=== PATIENT | male | born 1970 | race Caucasian/White ===

== ENCOUNTER 2017-07-04 00:09 | Emergency (ER) | payer OTHER ==
[~2017-07-04] VITALS: Ht 172.7 cm; Wt 63.6 kg
[2017-07-04 00:23] VITALS: Ht 172.7 cm; Wt 63.6 kg
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
[2017-07-04] MEDS ORDERED: IBUP-1542 PO (02:22)
--- NOTE | 2017-07-04 02:25 | RADRPT ---
PROCEDURE: US Scrotum. CLINICAL INDICATION: rt testicular pain TECHNIQUE: Multiple sonographic images of the scrotal region were obtained utilizing a linear arra y transducer with grayscale and color-flow and a Doppler imaging. The images were reviewed on a high -resolution PACS workstation. COMPARISON: No prior studies are available for comparison. FINDINGS: The right testicle is well visualized and has a normal echotexture. No focal areas of abnormal echog enicity are visualized. The right testicle measures measures 4.0 x 2.1 x 3.4 cm.. There is normal co chao-flow. The right epididymis is visualized and measures 1.2 x 0.9 x 0.5 cm There is normal color-f low. The left testicle is well visualized and has a normal echotexture. No focal areas abnormal echogenic ity are visualized. The left testicle measures measures 4.0 x 2.2 x 3.1 cm . There is normal color-f low. The left epididymis is visualized and measures 1.1 x 1.0 x 0.7 cm. There is normal color-flow. No significant hydrocele or varicocele is identified. The scrotal wall is unremarkable. No swelling or edema is seen. IMPRESSION: No evidence of testicular torsion. Physician Jacklyn Date Time Electronically viewed and signed by Physician Jacklyn on 07/04/2017 02:25 CS/
[2017-07-04] MEDS ORDERED: traMADol 50 MG TAB PO ONE (02:30)
[2017-07-04 02:32] LABS: URINE BLOOD (Dip) POC Trace-intact (NEGATIVE)
[2017-07-04 02:59] VITALS: BP 119/72; PULSE 61; RESP 18; TEMP 97.6
== END 2017-07-04 02:41 | disposition home or self-care (01) ==
LOC: E/R 00:09
DX: N50.811 Right testicular pain (principal)
CPT/HCPCS: 76870; 81003; Z7502; Z7610

== ENCOUNTER 2017-07-22 23:06 | Emergency (ER) | payer OTHER ==
[~2017-07-22] VITALS: Ht 167.6 cm; Wt 61.4 kg
[~2017-07-22 23:06] MED LIST: IBUP-1542 PO
[2017-07-22 23:10] VITALS: Ht 167.6 cm; Wt 61.4 kg
--- NOTE | 2017-07-23 01:55 | ERD ---
ER Documentation Chief Complaint Chief Complaint testicular pain x 1 month, blood in urine HPI 47-year-old male presents here to emergency department for complaints of blood in the urine, and right testicular pain, patient was seen here 1 month ago, had the same symptoms, was saying that the pain is much more worse. Patient describes the pain as throbbing pain, 6/10 scale, not better or worse with anything. Patient denies any fever or chills. Patient denies any penile discharge. ROS All systems reviewed and are negative except as per history of present illness. Medications Home Meds Active Scripts Ibuprofen* (Motrin*) 600 Mg Tab, 600 MG PO Q6, #30 TAB Prov:BONITA JAIMES MD 07/04/17 Allergies Allergies: Coded Allergies: No Known Allergy (Unverified , 07/04/17) PMhx/Soc History of Surgery: No Anesthesia Reaction: No Hx 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 Disorder: No Hx Respiratory Disorders: No Hx Cardiac Disorders: No Hx Psychiatric Problems: No Hx Miscellaneous Medical Probl: Yes (Paraplegic ) Hx Alcohol Use: Yes Hx Substance Use: Yes (Marijuana) Hx Tobacco Use: Yes Smoking Status: Current every day smoker FmHx Family History: No coronary disease, No diabetes, No other Physical Exam Vitals Vital Signs Date Time Temp Pulse Resp B/P Pulse Ox O2 Delivery O2 Flow Rate FiO2 07/22/17 23:10 98.3 100 20 110/56 100 Physical Exam GENERAL: The patient is well developed and appropriate for usual state of health, in no apparent distress. CHEST: Clear to auscultation bilaterally. There are no rales, wheezes or rhonchi. HEART: Regular rate and rhythm. No murmurs, clicks, rubs or gallops. No S3 or S4. ABDOMEN: Soft, nontender and nondistended. Good bowel sounds. No rebound or guarding. No gross peritonitis. No gross organomegaly or masses. No Palacios sign or McBurney point tenderness. BACK: No midline or flank tenderness. EXTREMITIES: Equal pulses bilaterally. There is no peripheral clubbing, cyanosis or edema. No focal swelling or erythema. Full range of motion. Grossly neurovascularly intact. NEURO: Alert and oriented. Cranial nerves 2-12 intact. Motor strength in all 4 extremities with 5/5 strength. Sensation grossly intact. Normal speech and gait. SKIN: There is no apparent rash or petechia. The skin is warm and dry. HEMATOLOGIC AND LYMPHATIC: There is no evidence of excessive bruising or lymphedema. No gross cervical, axillary, or inguinal lymphadenopathy. : Noted right scrotal tenderness mild redness noted, no swelling noted. No penile discharge, no lesions noted. Results 24 hrs Laboratory Tests Test 07/23/17 02:30 Urine Color MISHA Urine Clarity CLOUDY Urine pH 5.0 Urine Specific [place] 1.027 Urine Ketones NEGATIVEmg/dL Urine Nitrite NEGATIVEmg/dL Urine Bilirubin NEGATIVEmg/dL Urine Urobilinogen NEGATIVEmg/dL Urine Leukocyte Esterase NEGATIVELeu/ul Urine Microscopic RBC 0/HPF Urine Microscopic WBC 0/HPF Urine Mucus MODERATE/HPF Urine Hemoglobin NEGATIVEmg/dL Urine Glucose NEGATIVEmg/dL Urine Total Protein 1+mg/dl PROCEDURE: US Scrotum. CLINICAL INDICATION: Right scrotal pain TECHNIQUE: Multiple sonographic images of the scrotal region were obtained utilizing a linear array transducer with grayscale and color-flow Doppler imaging. The images were reviewed on a high-resolution PACS workstation. COMPARISON: US PELVIS 07/04/2017 FINDINGS: The right testicle is well visualized and has a normal echotexture. No focal areas of abnormal echogenicity are visualized. The right testicle measures 3.9 x 1.4 x 3 cm. There is normal color-flow and arterial flow. The right epididymis is visualized and unremarkable in appearance. There is normal color- flow. The left testicle is well visualized and has a normal echotexture. No focal areas of abnormal echogenicity are visualized. The left testicle measures 4.2 x 1.8 x 3.3 cm. There is normal color-flow and arterial flow. The left epididymis is visualized and there is a 7 mm epididymal cyst in the left epididymal head. There is normal color-flow. There are mildly prominent veins in the scrotum bilaterally. However, no definite varicocele (greater than 2 veins with diameter of 2 mm or greater) is seen bilaterally. IMPRESSION: 7 mm epididymal cyst. Otherwise, no definite abnormality seen. No evidence of testicular torsion. RPTAT: HJES .Elia Gallagher MD, MD Date Time Electronically viewed and signed by .Elia Gallagher MD, MD on 07/23/2017 02:31 .S/ Procedures/MDM Medical decision making: Patient has epididymal cyst, no blood in the urine, no symptoms of any torsion, no epididymitis noted. Patient was advised to see urology specialist for further evaluation and management. Patient was given tramadol for severe pain, is advised to follow-up with urology specialist, return to emergency department for any worsening symptoms. Disposition: Home. Stable Departure Diagnosis: Primary Impression: Epididymal cyst Condition: Stable Patient Instructions: Testicular Self-Exam (NEETA) JOO FELICIANO NP Jul 23, 2017 01:55
--- NOTE | 2017-07-23 02:31 | RADRPT ---
PROCEDURE: US Scrotum. CLINICAL INDICATION: Right scrotal pain TECHNIQUE: Multiple sonographic images of the scrotal region were obtained utilizing a linear arra y transducer with grayscale and color-flow Doppler imaging. The images were reviewed on a high-resol [employer] PACS workstation. COMPARISON: US PELVIS 07/04/2017 FINDINGS: The right testicle is well visualized and has a normal echotexture. No focal areas of abnormal echog enicity are visualized. The right testicle measures 3.9 x 1.4 x 3 cm. There is normal color-flow an d arterial flow. The right epididymis is visualized and unremarkable in appearance. There is normal color-flow. The left testicle is well visualized and has a normal echotexture. No focal areas of abnormal echoge nicity are visualized. The left testicle measures 4.2 x 1.8 x 3.3 cm. There is normal color-flow and arterial flow. The left epididymis is visualized and there is a 7 mm epididymal cyst in the left ep ididymal head. There is normal color-flow. There are mildly prominent veins in the scrotum bilaterally. However, no definite varicocele (greate r than 2 veins with diameter of 2 mm or greater) is seen bilaterally. IMPRESSION: 7 mm epididymal cyst. Otherwise, no definite abnormality seen. No evidence of testicular torsion. RPTAT: HJES .Elia Gallagher MD, MD Date Time Electronically viewed and signed by .Elia Gallagher MD, MD on 07/23/2017 02:31 .S/
[2017-07-23 03:33] LABS: ADD UMIC YES; UR ASCORBIC ACID 40 mg/dL (NEGATIVE); UR BILIRUBIN (Dip) NEGATIVE (NEGATIVE); UR BLOOD (Dip) NEGATIVE (NEGATIVE); UR CLARITY CLOUDY (CLEAR); UR COLOR AMBER (YELLOW); UR GLUCOSE (Dip) NEGATIVE (NEGATIVE); UR KETONES (Dip) NEGATIVE (NEGATIVE); UR LEUKOCYTE ESTERASE (Dip) NEGATIVE Leu/ul (NEGATIVE); UR MUCUS MODERATE /HPF (NONE SEEN); UR NITRITE (Dip) NEGATIVE (NEGATIVE); UR RBC 0 /HPF (0-5); UR SPECIFIC GRAVITY (Dip) 1.027 (1.003-1.030); UR TOTAL PROTEIN (Dip) 1+ mg/dl (NEGATIVE); UR UROBILINOGEN (Dip) NEGATIVE (NEGATIVE)
[2017-07-23] MEDS ORDERED: TRAM50TA2 PO (03:44)
== END 2017-07-23 04:03 | disposition home or self-care (01) ==
LOC: FTE 23:06
DX: N50.3 Cyst of epididymis (principal); F17.210 Nicotine dependence, cigarettes, uncomplicated
CPT/HCPCS: 76870; 81001; Z7502

== ENCOUNTER 2017-09-23 10:45 | Emergency (ER) | END 2017-09-23 13:45 | disposition home or self-care (01) ==

== ENCOUNTER 2017-11-10 14:38 | Emergency (ER) | END 2017-11-10 21:32 | disposition home or self-care (01) ==

== ENCOUNTER 2018-01-21 02:19 | Emergency (ER) | END 2018-01-21 05:55 | disposition home or self-care (01) ==

== ENCOUNTER 2018-01-21 21:59 | Emergency (ER) | END 2018-01-22 01:03 | disposition home or self-care (01) ==

== ENCOUNTER 2018-03-07 05:51 | Emergency (ER) | END 2018-03-07 10:15 | disposition home or self-care (01) ==

== ENCOUNTER 2018-03-08 23:13 | Emergency (ER) | END 2018-03-09 02:15 | disposition left against medical advice (07) ==

== ENCOUNTER 2018-03-10 06:02 | Emergency (ER) | END 2018-03-10 10:14 | disposition left against medical advice (07) ==

== ENCOUNTER 2018-03-21 13:33 | Emergency (ER) | END 2018-03-21 14:54 | disposition home or self-care (01) ==

== ENCOUNTER 2019-02-08 20:51 | Emergency (ER) | payer OTHER ==
[~2019-02-08] VITALS: Ht 165.1 cm; Wt 65.0 kg
[~2019-02-08 20:51] MED LIST changes: +BACL20TA PO; +GABA300C16 PO; -IBUP-1542 PO; +TAMS0.4C2 PO
[2019-02-08 20:55] VITALS: Ht 165.1 cm; Wt 65.0 kg
[2019-02-08] MEDS ORDERED: morphine 4 MG/ML VIAL IV STA (22:09)
[2019-02-08] MEDS ORDERED: BACLOFEN 10 MG TAB PO ONE (22:30)
[2019-02-08] MEDS ORDERED: CEFTRIAXONE 1 GM/50 ML (PMX) 50 ML IVPB ONE (22:30)
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
[2019-02-08] MEDS ORDERED: CEPH-443 PO (22:49)
[2019-02-09] MEDS ORDERED: HYDR-3980 PO (11:21)
[2019-02-09] MEDS ORDERED: BACL20TA PO (11:21)
[2019-02-09] MEDS ORDERED: morphine 4 MG/ML VIAL IV STA ×2 (11:39→17:02)
[2019-02-09] MEDS ORDERED: morphine 4 MG/ML VIAL ONE (11:41)
[2019-02-09] MEDS ORDERED: BACLOFEN 10 MG TAB PO ONE ×2 (12:00→17:30)
[2019-02-09 17:00] VITALS: BP 118/69; PULSE 62; RESP 16
== END 2019-02-09 18:29 | disposition home or self-care (01) ==
LOC: E/R 20:51
DX: S81.801A Unspecified open wound, right lower leg, initial encounter (principal); L03.115 Cellulitis of right lower limb; F17.210 Nicotine dependence, cigarettes, uncomplicated; X58.XXXA Exposure to other specified factors, initial encounter; Y92.9 Unspecified place or not applicable; Z74.1 Need for assistance with personal care; Z86.69 Personal history of other diseases of the nervous system and sense organs
CPT/HCPCS: 36415; 71045; 80048; 84484; 85025; 93005; 96365; 96375; 96376; J0696; J2270; Z7502; Z7610

== ENCOUNTER 2019-02-10 20:26 | Inpatient (IN) | payer OTHER ==
[~2019-02-10] VITALS: Ht 172.7 cm; Wt 65.0 kg
[~2019-02-10 20:26] MED LIST changes: +ALPR0.254 PO; +BACL10TA PO; +BISA5TAB6 PO; +CEPH-443 PO; +CIPR500T4 PO; -GABA300C16 PO; +GABA400C14 PO; +HYDR-3601 PO; +HYDR-3980 PO; +LEVO100T8 PO; +MORP30TA3 PO; +NORT25CA PO; +PANT40TA4 PO; +SULF-182 PO; -TAMS0.4C2 PO
[2019-02-10 20:36] VITALS: Ht 172.7 cm; Wt 65.0 kg
[2019-02-10] MEDS ORDERED: SOD CHLORIDE 0.9% 1,000 ML IV STA (21:15)
[2019-02-10] MEDS ORDERED: HYDROmorphONE 1 MG/ML SYG IV STA (21:15)
[2019-02-10] MEDS ORDERED: ONDANSETRON 4 MG INJ IV STA (21:15)
[2019-02-10] MEDS ORDERED: ACETAMINOPHEN 325 MG TAB PO PRN (23:00)
[2019-02-10] MEDS ORDERED: ONDANSETRON 4 MG INJ IV PRN (23:00)
[2019-02-10] MEDS ORDERED: VANCOMYCIN IV PER PHARMACY XX SCH (23:00)
[2019-02-10] MEDS ORDERED: VANCOMYCIN 1 GM (PMX) 250 ML IVPB STA (23:28)
[2019-02-10] MEDS ORDERED: PIPER-TAZO 3.375 GM IV (PMX) 100 ML IVPB STA (23:28)
[2019-02-10] MEDS ORDERED: HYDROCODONE/APAP (10/325) TAB PO PRN (23:30)
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
[2019-02-11] MEDS: BACLOFEN 10 MG TAB PO SCH ×3 (00:17→20:55)
[2019-02-11] MEDS: morphine (ER) 30 MG TAB PO SCH ×3 (00:17→20:56)
[2019-02-11 01:13] VITALS: BP 111/56; PULSE 83; RESP 16
[2019-02-11] MEDS: SOD CHLORIDE 0.9% 1,000 ML IV SCH ×2 (02:24→13:22)
[2019-02-11] MEDS: HYDROCODONE/APAP (10/325) TAB PO PRN ×2 (02:31→19:59)
[2019-02-11] MEDS ORDERED: morphine 2 MG INJ IV PRN (04:00)
[2019-02-11] MEDS ORDERED: PENDING SANTYL ORDER FOR WOUND CARE XX PRN (05:00)
[2019-02-11 07:30] VITALS: BP 91/46; PULSE 57; RESP 16
[2019-02-11] MEDS: ENOXAPARIN 40 MG/0.4 ML SYG SC SCH (09:30)
[2019-02-11] MEDS: GABAPENTIN 300 MG CAP PO SCH ×2 (09:30→20:53)
--- NOTE | 2019-02-11 12:53 | PN ---
Date/Time of Note Date/Time of Note DATE: 02/11/19 TIME: 12:41 Assessment/Plan VTE Prophylaxis Risk score (from Nsg)>0 risk: 4 SCD applied (from Nsg): Yes Pharmacological prophylaxis: LMWH Lines/Catheters IV Catheter Type (from Nrsg): Peripheral IV Assessment/Plan Assessment/Plan 49 yo paraplegic man presents with R leg cellulitis # right lower extremity cellulitis: - Arising from lateral leg ulcer. - On my exam cellulitis has completely resolved. - Continue vanco and zosyn for now, transition to PO bactrim or clinda. - Wound care #Heart murmur - Apparently this was present months ago when he was hospitalized at [facility]. - Will get echo here. #Elevated lipase - Tolerating regular diet - No more epigastric pain. - I do not suspect pancreatitis. #Paraplegia - Complicated by neuropathic pain and muscle spasm - Cont home meds (verbal, per patient:) - MS Contin 30 mg BID - Baclofen 40mg BID - gabapentin 600mg BID - Also daily PT - CM for placement. #4 history of illicit drug use: - Currently EtOH, drug screen negative # DVT GI prophylaxis: Lovenox, no GI prophylaxis indicated Further treatment strategy will be implemented as per the clinical course. Result Diagram: 02/11/19 0702/11/19 07 Subjective 24 Hr Interval Summary Free Text/Dictation No acute overnight events. Patient complains of spasm-like muscle pain. Exam/Review of Systems Exam Vitals Vital Signs Date Temp Pulse Resp B/P (MAP) Pulse Ox O2 O2 Flow FiO2 Time Delivery Rate 02/11/19 98.2 57 16 91/46 (61) 94 07:30 02/11/19 Room Air 00:18 Intake and Output 02/10/19 02/10/19 02/11/19 1515:00 23:00 07:00 IntakeIntake Total 730 ml OutputOutput Total 300 ml BalanceBalance 430 ml Exam General: Patient is currently lying in bed he appears to be in some discomfort from pain in his right leg HEENT: Atraumatic, normocephalic. The pupils are equal, round and reactive. Extraocular motor are intact Neck: Supple with full range of motion. No rigidity or meningismus Chest: Nontender Lungs: Clear to auscultation bilaterally no crackles rales or wheezing Heart: Regular rate and rhythm. 3/6 holosystolic ejection murmur. Abdomen: Soft , nontender, nondistended , bowel sounds are present. No guarding no rebound tenderness , No masses or organomegaly. : Inferior scrotal superficial ulcer. Testicles firm and hard and nontender. Actually I could only palpate one testicle. Extremities: Right lateral leg ulcer, clean based, no surrounding erythema or induration. Results Results 24hrs Laboratory Tests Test 02/10/19 21:22 02/10/19 21:25 02/11/19 07:02 White Blood Count 8.2 7.1 Red Blood Count 4.03 L 3.89 L Hemoglobin 12.5 L 11.9 L Hematocrit 36.6 L 36.0 L Mean Corpuscular Volume 90.8 92.5 Mean Corpuscular Hemoglobin 31.0 30.6 Mean Corpuscular Hemoglobin Concent 34.2 33.1 Red Cell Distribution Width 12.7 13.0 Platelet Count 311 304 Mean Platelet Volume 8.1 8.5 Immature Granulocytes % 0.700 H 0.700 H Neutrophils % 54.3 45.9 Lymphocytes % 31.8 35.8 Monocytes % 10.4 12.4 H Eosinophils % 2.4 4.6 Basophils % 0.4 0.6 Nucleated Red Blood Cells % 0.0 0.0 Immature Granulocytes # 0.060 H 0.050 H Neutrophils # 4.4 3.3 Lymphocytes # 2.6 2.6 Monocytes # 0.9 0.9 Eosinophils # 0.2 0.3 Basophils # 0.0 0.0 Nucleated Red Blood Cells # 0.0 0.0 Prothrombin Time 12.9 Prothrombin Time Ratio 1.0 INR International Normalized Ratio 0.96 Activated Partial Thromboplast Time 31.5 Sodium Level 139 142 Potassium Level 4.4 4.2 Chloride Level 105 111 H Carbon Dioxide Level 27 26 Anion Gap 7 5 Blood Urea Nitrogen 8 # 9 Creatinine 0.59 L 0.67 Est Glomerular Filtrat Rate mL/min > 60 > 60 Glucose Level 85 82 Calcium Level 9.0 8.1 L Total Bilirubin 0.3 0.2 Direct Bilirubin 0.00 0.00 Indirect Bilirubin 0.3 0.2 Aspartate Amino Transf (AST/SGOT) 61 H 67 H Alanine Aminotransferase (ALT/SGPT) 47 41 Alkaline Phosphatase 57 47 Troponin I < 0.012 Total Protein 7.3 6.2 # Albumin 3.8 3.0 L Globulin 3.50 H 3.20 Albumin/Globulin Ratio 1.08 0.93 Amylase Level 186 H Lipase 393 H 412 H Ethyl Alcohol Level < 10.0 H POC Venous Lactate 1.1 Hemoglobin A1c 5.0 Magnesium Level 2.1 Triglycerides Level 51 Cholesterol Level 123 LDL Cholesterol, Calculated 67 HDL Cholesterol 46 Cholesterol/HDL Ratio 2.6 Thyroid Stimulating Hormone (TSH) 73.500 H Medications Medication Current Medications IV Flush (NS 3 ml) 3 ml PER PROTOCOL IV ; Start 02/10/19 at 23:00 Ondansetron HCl (Zofran Inj) 4 mg Q6H PRN IV NAUSEA/VOMITING; Start 02/10/19 at 23:00 Acetaminophen (Tylenol Tab) 650 mg Q6H PRN PO .PAIN 1-3 OR TEMP; Start 02/10/19 at 23:00 Docusate Sodium (Colace) 100 mg Q12H PRN PO .CONSTIPATION; Start 02/10/19 at 23:00 Bisacodyl (Dulcolax) 5 mg DAILY PRN PO .CONSTIPATION; Start 02/10/19 at 23:00 Enoxaparin Sodium (Lovenox) 40 mg DAILY SC Last administered on 02/11/19at 09:30; Admin Dose 40 MG; Start 02/11/19 at 09:00 Vancomycin HCl (Vanco Iv Per Pharmacy) VANCOMYCIN PER PHARMACY PER PROTOCOL XX ; Start 02/10/19 at 23:00 Baclofen (Lioresal) 20 mg BID PO Last administered on 02/11/19at 09:30; Admin Dose 20 MG; Start 02/10/19 at 23:30 Morphine Sulfate (Ms Contin (Er)) 30 mg BID PO Last administered on 02/11/19at 09:29; Admin Dose 30 MG; Start 02/10/19 at 23:30 Gabapentin (Neurontin) 600 mg BID PO Last administered on 02/11/19at 09:30; Admin Dose 600 MG; Start 02/11/19 at 09:00 Acetaminophen/ Hydrocodone Bitart ([place] ()) 1 tab Q6H PRN PO PAIN LEVEL 1-3 Last administered on 02/11/19at 02:31; Admin Dose 1 TAB; Start 02/11/19 at 02:24 Vancomycin HCl 250 ml @ 125 mls/hr Q12H IVPB ; Start 02/11/19 at 12:30 Morphine Sulfate (morphine) 2 mg Q4H PRN IV SEVERE PAIN LEVEL 7-10 Last administered on 02/11/19at 06:11; Admin Dose 2 MG; Start 02/11/19 at 04:00 Miscellaneous Information (*Rx Drug Level Order Reminder*) VANCO TR LEVEL ON @ 130 ONCE ONCE XX ; Start 02/12/19 at 11:30; Stop 02/12/19 at 11:31 Miscellaneous Information (Pending Santyl Order For Wound Care) This patient oliveros... PRN PRN XX WOUND CARE; Start 02/11/19 at 05:00 JULIA RIVERA MD Feb 11, 2019 12:53
[2019-02-11] MEDS: morphine 2 MG INJ IV PRN ×3 (13:21→22:55)
[2019-02-11] MEDS: VANCOMYCIN 1 GM 250 ML IVPB SCH (13:21)
[2019-02-11] MEDS: BALSAM PERU/CASTOR OIL 60 GM TUBE TOP SCH ×2 (13:22→21:00)
[2019-02-11 14:30] VITALS: BP 123/56; PULSE 64; RESP 16
[2019-02-11 19:40] VITALS: BP 93/45; PULSE 65; RESP 16
[2019-02-11 20:30] VITALS: BP 95/55
--- NOTE | 2019-02-11 20:41 | RADRPT ---
Echocardiogram Report Patient Name: GRADY CROUCHPatient ID: [id number] : 1970 (49y 1m)Study Date: 02/11/2019 3:36:29 PM Gender: MAccession #: [id number] Tech: Fabian Soni [facility] Location: 2263-[address] Ref.Physician: JULIA RIVERA Height(Cm): BSA: Weight(Kg): Quality: AdequateOrder Physician: JULIA RIVERA Account #: Procedures: Echocardiographic Report: Transthoracic echocardiogram with complete 2D, M-Mode, and doppler examination. Indications: Murmur. Measurements: 2D/M Mode Doppler Measurement Value Normal Range Measurement Value Normal Range LVIDd 2D 5.5 [ 4.2 - 5.8 ] cm CARLEY VTI 1.2 [ 2.0 - 4.0 ] cm2 LVIDs 2D 3.5 [ 2.5 - 4.0 ] cm AV Mean Lino 2.7 [ 70.0 - 90.0 ] cm/sec LVPWd 2D 1.0 [ 0.6 - 1.0 ] cm AV Mean PG 34.0 [ 2.0 - 4.0 ] mmHg IVSd 2D 1.0 [ 0.6 - 1.0 ] cm AV VTI 95.1 cm AoR Diam 2D 3.1 [ 2.6 - 3.4 ] cm LVOT Mean Lino 1.0 [ 60.0 - 80.0 ] cm/sec EDV 2D 148.0 [ 62.0 - 150.0 ] ml LVOT Mean PG 5.0 [ 1.0 - 3.0 ] mmHg ESV 2D 52.6 [ 21.0 - 61.0 ] ml LVOT Peak Lino 1.5 [ 70.0 - 110.0 ] cm/sec EF 2D 64.5 [ 52.0 - 72.0 ] percent LVOT Peak PG 8.0 [ 2.0 - 6.0 ] mmHg LA Dimen 2D 2.9 [ 3.0 - 4.0 ] cm LVOT VTI 36.5 [ 20.0 - 30.0 ] cm LVOT Diam 2.0 [ 2.3 - 2.9 ] cm MV E Peak Lino 0.9 [ 60.0 - 130.0 ] cm/sec MV A Peak Lino 0.4 [ 100.0 - 120.0 ] cm/sec MV E/A 2.0 [ 0.8 - 1.5 ] ratio MV Decel Time 218 [ 104 - 258 ] msec Lat E` Lino 0.1 [ 10.0 - 15.0 ] cm/sec Lateral E/E` 7.4 [ 1.0 - 2.0 ] ratio Med E` Lino 0.1 cm/sec MV E/A 2.0 [ 0.8 - 1.5 ] ratio TR Peak Lino 2.3 [ 100.0 - 280.0 ] cm/sec TR Peak PG 21.0 mmHg RVSP 24.0 [ 10.0 - 36.0 ] mmHg Findings: Left Ventricle: Normal left ventricular systolic function. Normal left ventricular cavity size. Normal left ventricular wall thickness. Ejection fraction is visually estimated at 65 %. Tissue Doppler/Mitral Doppler indices are consistent with impaired relaxation (Stage I diastolic dysfunction). Right Ventricle: Normal right ventricular size. Normal right ventricular systolic function. Left Atrium: The left atrium is normal in size. Right Atrium: The right atrium is normal in size. Mitral Valve: Mild mitral leaflet calcification. Mild mitral annular calcification. Trace mitral regurgitation. Aortic Valve: Moderate aortic stenosis. Aortic valve Max velocity 3.95 m/sec. Max PG 62.30 mmHg. Mean PG 34.00 mmHg. Aortic valve area 1.21 cm2. Moderate aortic sclerosis. Possible bicuspid aortic valve. Severe aortic valve regurgitation. Tricuspid Valve: Normal appearance of the tricuspid valve. The estimated Peak RVSP is 24 mmHg. There is trace tricuspid regurgitation. Pulmonic Valve: Pulmonic valve not well visualized. Pericardium: Normal pericardium with no significant pericardial effusion. Aorta: Normal aortic root. IVC: Normal size and normal respiratory collapse consistent with normal right atrial pressure. Conclusions: Normal left ventricular systolic function. Grade 1 diastolic dysfunction. Probable bicuspid aortic valve with moderate stenosis and severe regurgitation. Trace mitral regurgitation. Trace tricuspid regurgitation and normal pulmonary pressures. Normal aortic root size. Electronically Signed By: Ashly Plata 2019-02-11 20:40:51 PDT
[2019-02-11] MEDS ORDERED: morphine (ER) 30 MG TAB PO SCH (21:00)
[2019-02-12] MEDS: VANCOMYCIN 1 GM 250 ML IVPB SCH ×2 (00:59→13:57)
[2019-02-12 02:04] VITALS: BP 90/47; PULSE 66; RESP 16
[2019-02-12 02:30] VITALS: BP 95/57
[2019-02-12] MEDS: morphine 2 MG INJ IV PRN ×5 (04:29→22:54)
[2019-02-12 08:00] VITALS: BP 109/53; PULSE 75; RESP 16
[2019-02-12] MEDS: BACLOFEN 10 MG TAB PO SCH ×2 (08:45→21:49)
[2019-02-12] MEDS: morphine (ER) 30 MG TAB PO SCH ×2 (08:45→21:49)
[2019-02-12] MEDS: GABAPENTIN 300 MG CAP PO SCH ×2 (08:46→21:48)
[2019-02-12] MEDS: ENOXAPARIN 40 MG/0.4 ML SYG SC SCH (08:54)
[2019-02-12] MEDS: BALSAM PERU/CASTOR OIL 60 GM TUBE TOP SCH ×2 (08:54→21:50)
--- NOTE | 2019-02-12 11:36 | PSY ---
Date/Time of Note Date/Time of Note DATE: 02/12/19 TIME: 11:25 Psychiatric Subjective Eval Consent Pt consented to telemedicine: No Subjective Evaluation Patient location: inpatient Chief Complaint: [id number],from SNF,c/o AP,NV,L chest radiating to L side pain,nausea,constipa History of present illness Patient is a 49-year-old paraplegia, admitted with complaints of right lower extremity swelling and pain. Patient is wheelchair-bound, alert and oriented. Patient denies psych history, states nothing is adler with him. Patient claims the only reason his previous facility wrote an extensive note showing he had psych history is to cover up their tracks in order not to lose a lawsuit. Patient declined psych medication and and contracted for safety. He states he is here for medical reasons. Past psychiatric history Per records but patient declined Hospitalization: other Medical history Problems Medical Problems: (1) Agitation Status: Acute (2) Bilateral leg pain Status: Acute (3) Cellulitis Status: Acute (4) Cellulitis of right lower extremity Status: Acute (5) Constipation Status: Acute (6) Delusions of parasitosis Status: Acute (7) Epididymal cyst Status: Acute (8) Hematuria Status: Acute (9) History of paraplegia Status: Acute (10) Malingering Status: Acute (11) Multiple complaints Status: Acute (12) Multiple complaints Status: Acute (13) Multiple complaints Status: Acute (14) Pain in testicle Status: Acute (15) Pain of left leg Status: Acute (16) Polysubstance abuse Status: Acute (17) Requires supervision due to deficit in self-care Status: Acute (18) Right hip pain Status: Acute (19) Right testicular pain Status: Acute (20) Scrotal pain Status: Acute (21) Testicle pain Status: Acute (22) Testicle pain Status: Acute (23) Wound of right lower extremity Status: Acute Allergies: Coded Allergies: ketorolac (Verified Allergy, Unknown, SWELLING, 02/11/19) Substance Abuse Substance abuse history: Yes Prior substance abuse treatmen: No Social History Marital status: other DPA/Conservatorship: No Psychiatric Objective Eval Review of Systems: Review of Systems: Not Applicable Physical Examination: Physical Examination: Not Applicable Energy: Adequate Interest: Adequate Mental Status Examination: Appearance: Poor Hygiene Eye Contact: Fair Psychomotor Activity: Slow Behavior: Cooperative Speech: Clear AFFECT: Constricted Mood: Appropriate/Full Though Process: Linear Thought Content: Normal Orientation: x4 Attention Span: Distractible Laboratory Results Laboratory Tests Test 02/10/19 21:22 02/10/19 21:25 02/11/19 07:02 02/12/19 06:02 White Blood Count 8.2 10^3/ul 7.1 10^3/ul 6.7 10^3/ul Red Blood Count 4.03 10^6/ul 3.89 10^6/ul 4.16 10^6/ul Hemoglobin 12.5 g/dl 11.9 g/dl 12.8 g/dl Hematocrit 36.6 % 36.0 % 38.8 % Mean Corpuscular 90.8 fl 92.5 fl 93.3 fl Volume Mean Corpuscular 31.0 pg 30.6 pg 30.8 pg Hemoglobin Mean Corpuscular 34.2 g/dl 33.1 g/dl 33.0 g/dl Hemoglobin Concent Red Cell 12.7 % 13.0 % 13.1 % Distribution Width Platelet Count 311 10^3/UL 304 10^3/UL 338 10^3/UL Mean Platelet 8.1 fl 8.5 fl 8.5 fl Volume Immature 0.700 % 0.700 % 0.600 % Granulocytes % Neutrophils % 54.3 % 45.9 % 44.3 % Lymphocytes % 31.8 % 35.8 % 37.0 % Monocytes % 10.4 % 12.4 % 9.4 % Eosinophils % 2.4 % 4.6 % 8.1 % Basophils % 0.4 % 0.6 % 0.6 % Nucleated Red 0.0 /100WBC 0.0 /100WBC 0.0 /100WBC Blood Cells % Immature 0.060 10^3/ul 0.050 10^3/ul 0.040 10^3/ul Granulocytes # Neutrophils # 4.4 10^3/ul 3.3 10^3/ul 3.0 10^3/ul Lymphocytes # 2.6 10^3/ul 2.6 10^3/ul 2.5 10^3/ul Monocytes # 0.9 10^3/ul 0.9 10^3/ul 0.6 10^3/ul Eosinophils # 0.2 10^3/ul 0.3 10^3/ul 0.5 10^3/ul Basophils # 0.0 10^3/ul 0.0 10^3/ul 0.0 10^3/ul Nucleated Red 0.0 10^3/ul 0.0 10^3/ul 0.0 10^3/ul Blood Cells # Prothrombin Time 12.9 Sec Prothrombin Time 1.0 Ratio INR International 0.96 Normalized Ratio Activated 31.[address] Time Sodium Level 139 mmol/L 142 mmol/L 141 mmol/L Potassium Level 4.4 mmol/L 4.2 mmol/L 4.6 mmol/L Chloride Level 105 mmol/L 111 mmol/L 107 mmol/L Carbon Dioxide 27 mmol/L 26 mmol/L 29 mmol/L Level Anion Gap 7 5 5 Blood Urea 8 mg/dl 9 mg/dl 14 mg/dl Nitrogen Creatinine 0.59 mg/dl 0.67 mg/dl 0.64 mg/dl Est Glomerular > 60 mL/min > 60 mL/min > 60 mL/min Filtrat Rate mL/min Glucose Level 85 mg/dl 82 mg/dl 86 mg/dl Calcium Level 9.0 mg/dl 8.1 mg/dl 8.0 mg/dl Total Bilirubin 0.3 mg/dl 0.2 mg/dl 0.2 mg/dl Direct Bilirubin 0.00 mg/dl 0.00 mg/dl 0.00 mg/dl Indirect Bilirubin 0.3 mg/dl 0.2 mg/dl 0.2 mg/dl Aspartate Amino 61 IU/L 67 IU/L 38 IU/L Transf (AST/SGOT) Alanine 47 IU/L 41 IU/L 36 IU/L Aminotransferase ( ALT/SGPT) Alkaline 57 IU/L 47 IU/L 39 IU/L Phosphatase Troponin I < 0.012 ng/ml Total Protein 7.3 g/dl 6.2 g/dl 6.4 g/dl Albumin 3.8 g/dl 3.0 g/dl 3.1 g/dl Globulin 3.50 g/dl 3.20 g/dl 3.30 g/dl Albumin/Globulin 1.08 0.93 0.93 Ratio Amylase Level 186 U/L Lipase 393 U/L 412 U/L Ethyl Alcohol < 10.0 mg/dl Level POC Venous Lactate 1.1 mmol/L Hemoglobin A1c 5.0 % Magnesium Level 2.1 mg/dl Triglycerides 51 mg/dl Level Cholesterol Level 123 mg/dl LDL Cholesterol, 67 mg/dl Calculated HDL Cholesterol 46 mg/dl Cholesterol/HDL 2.6 RATIO Ratio Thyroid 73.500 MIU/L Stimulating Hormone (TSH) Assessment and Plan Assessment/Diagnosis Diagnosis Schizoaffective Disorder by History ONLY Recommendation/Plan Medication Management Declined Multiple antipsychotics: No Discharge Disposition: Other Legal Status: Voluntary (Does not meet criteria for 5150) KISHORE DE LEON NP Feb 12, 2019 11:36
--- NOTE | 2019-02-12 13:38 | PN ---
Date/Time of Note Date/Time of Note DATE: 02/12/19 TIME: 13:31 Assessment/Plan VTE Prophylaxis Risk score (from Nsg)>0 risk: 4 SCD applied (from Nsg): Yes Pharmacological prophylaxis: LMWH Lines/Catheters IV Catheter Type (from Nrsg): Saline Lock Assessment/Plan Assessment/Plan 49 yo paraplegic man presents with R leg cellulitis # right lower extremity cellulitis: - Arising from lateral leg ulcer. - On my exam cellulitis has completely resolved. - Continue vanco and zosyn for now, transition to PO bactrim or clinda. - Wound care #Ischial ulcers - Bilateral ischial stage 3 ulcers. - Continue wound care. - For these will likely need SNF placement. 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 - Currently compensated at stage C1 with LVEF>55%. - Serial monitoring. #Elevated lipase - Tolerating regular diet - No more epigastric pain. - I do not suspect pancreatitis. #Paraplegia - Complicated by neuropathic pain and muscle spasm - Cont home meds (verbal, per patient:) - MS Contin 30 mg BID - Baclofen 40mg BID - gabapentin 600mg BID - Also daily PT - CM for placement. # history of illicit drug use: - Currently EtOH, drug screen negative # DVT GI prophylaxis: Lovenox, no GI prophylaxis indicated Dispo: SNF placement. Result Diagram: 02/12/19 0602 02/12/19 0602 Subjective 24 Hr Interval Summary Free Text/Dictation No acute overnight events. Pain well controlled. Now complains of new left shoulder pain and reduced ROM for several weeks. Exam/Review of Systems Exam Vitals Vital Signs Date Temp Pulse Resp B/P (MAP) Pulse Ox O2 O2 Flow FiO2 Time Delivery Rate 02/12/19 75 16 109/53 98 08:00 (71) 02/12/19 98.3 Room Air 02:04 Intake and Output 02/11/19 02/11/19 02/12/19 1515:00 23:00 07:00 IntakeIntake Total 700 ml 250 ml 250 ml OutputOutput Total 1000 ml BalanceBalance 700 ml 250 ml -750 ml Exam General: Patient is currently lying in bed he in no distress. HEENT: Atraumatic, normocephalic. The pupils are equal, round and reactive. Extraocular motor are intact Neck: Supple with full range of motion. No rigidity or meningismus Chest: Nontender Lungs: Clear to auscultation bilaterally no crackles rales or wheezing Heart: Regular rate and rhythm. 3/6 systolic and also diastolic murmur. Abdomen: Soft , nontender, nondistended , bowel sounds are present. No guarding no rebound tenderness , No masses or organomegaly. Extremities: Right lateral leg ulcer, clean based, no surrounding erythema or induration. Results Results 24hrs Laboratory Tests Test 02/12/19 05:59 02/12/19 06:02 02/12/19 11:36 Free Thyroxine 0.47 L White Blood Count 6.7 Red Blood Count 4.16 L Hemoglobin 12.8 L Hematocrit 38.8 L Mean Corpuscular Volume 93.3 Mean Corpuscular Hemoglobin 30.8 Mean Corpuscular Hemoglobin Concent 33.0 Red Cell Distribution Width 13.1 Platelet Count 338 Mean Platelet Volume 8.5 Immature Granulocytes % 0.600 H Neutrophils % 44.3 Lymphocytes % 37.0 Monocytes % 9.4 Eosinophils % 8.1 H Basophils % 0.6 Nucleated Red Blood Cells % 0.0 Immature Granulocytes # 0.040 H Neutrophils # 3.0 Lymphocytes # 2.5 Monocytes # 0.6 Eosinophils # 0.5 Basophils # 0.0 Nucleated Red Blood Cells # 0.0 Sodium Level 141 Potassium Level 4.6 Chloride Level 107 Carbon Dioxide Level 29 Anion Gap 5 Blood Urea Nitrogen 14 Creatinine 0.64 Est Glomerular Filtrat Rate mL/min > 60 Glucose Level 86 Calcium Level 8.0 L Total Bilirubin 0.2 Direct Bilirubin 0.00 Indirect Bilirubin 0.2 Aspartate Amino Transf (AST/SGOT) 38 Alanine Aminotransferase (ALT/SGPT) 36 Alkaline Phosphatase 39 L Total Protein 6.4 Albumin 3.1 L Globulin 3.30 H Albumin/Globulin Ratio 0.93 Vancomycin Level Trough 8.1 L Medications Medication Current Medications IV Flush (NS 3 ml) 3 ml PER PROTOCOL IV ; Start 02/10/19 at 23:00 Ondansetron HCl (Zofran Inj) 4 mg Q6H PRN IV NAUSEA/VOMITING; Start 02/10/19 at 23:00 Acetaminophen (Tylenol Tab) 650 mg Q6H PRN PO .PAIN 1-3 OR TEMP; Start 02/10/19 at 23:00 Docusate Sodium (Colace) 100 mg Q12H PRN PO .CONSTIPATION; Start 02/10/19 at 23:00 Bisacodyl (Dulcolax) 5 mg DAILY PRN PO .CONSTIPATION; Start 02/10/19 at 23:00 Enoxaparin Sodium (Lovenox) 40 mg DAILY SC Last administered on 02/12/19at 08:54; Admin Dose 40 MG; Start 02/11/19 at 09:00 Vancomycin HCl (Vanco Iv Per Pharmacy) VANCOMYCIN PER PHARMACY PER PROTOCOL XX ; Start 02/10/19 at 23:00 Morphine Sulfate (Ms Contin (Er)) 30 mg BID PO Last administered on 02/12/19 08:45; Admin Dose 30 MG; Start 02/10/19 at 23:30 Gabapentin (Neurontin) 600 mg BID PO Last administered on 02/12/19 08:46; A dmin Dose 600 MG; Start 02/11/19 at 09:00 Acetaminophen/ Hydrocodone Bitart ([place] (10)) 1 tab Q6H PRN PO PAIN LEVEL 1-3 Last administered on 02/11/19at 19:59; Admin Dose 1 TAB; Start 02/11/19 at 02:24 Vancomycin HCl 250 ml @ 125 mls/hr Q12H IVPB Last administered on 02/12/19 00:59; Admin Dose 125 MLS/HR; Start 02/11/19 at 12:30 Miscellaneous Information (Pending [facility] Order For Wound Care) This patient oliveros... PRN PRN XX WOUND CARE; Start 02/11/19 at 05:00 Baclofen (Lioresal) 40 mg BID PO Last administered on 02/12/19at 08:45; Admin Dose 40 MG; Start 02/11/19 at 21:00 Morphine Sulfate (morphine) 2 mg Q4H PRN IV SEVERE PAIN LEVEL 7-10 Last administered on 02/12/19 08:46; Admin Dose 2 MG; Start 02/11/19 at 13:00 Levothyroxine Sodium (Synthroid) 100 mcg DAILY@06 PO ; Start 02/13/19 at 06:00; Status UNJULIA BRUSH MD Feb 12, 2019 13:38
[2019-02-12 14:00] VITALS: BP 97/46; PULSE 60; RESP 16
[2019-02-12] MEDS: LEVOTHYROXINE 100 MCG TAB PO SCH (16:43)
[2019-02-12 19:45] VITALS: BP 114/56; PULSE 68; RESP 16
[2019-02-12] MEDS: VANCOMYCIN 750 MG (PMX) 250 ML IVPB SCH (21:48)
[2019-02-13] MEDS: BISACODYL (EC) 5 MG TAB PO PRN (01:05)
[2019-02-13 02:12] VITALS: BP 116/57; PULSE 62; RESP 18
[2019-02-13] MEDS: VANCOMYCIN 750 MG (PMX) 250 ML IVPB SCH ×2 (04:53→12:41)
[2019-02-13] MEDS: LEVOTHYROXINE 100 MCG TAB PO SCH (05:53)
[2019-02-13] MEDS: morphine 2 MG INJ IV PRN ×4 (05:54→21:49)
[2019-02-13 07:30] VITALS: BP 112/56; PULSE 56; RESP 16
[2019-02-13] MEDS: GABAPENTIN 300 MG CAP PO SCH ×2 (08:47→20:36)
[2019-02-13] MEDS: BACLOFEN 10 MG TAB PO SCH ×2 (08:47→20:35)
[2019-02-13] MEDS: ENOXAPARIN 40 MG/0.4 ML SYG SC SCH (08:47)
[2019-02-13] MEDS: morphine (ER) 30 MG TAB PO SCH ×2 (08:48→20:36)
[2019-02-13] MEDS: DOCUSATE SODIUM 100 MG CAP PO PRN (08:48)
[2019-02-13] MEDS: BALSAM PERU/CASTOR OIL 60 GM TUBE TOP SCH ×3 (08:49→21:49)
[2019-02-13] MEDS: POLYETHYLENE GLYCOL 17 GM PACKET PO SCH (11:17)
--- NOTE | 2019-02-13 11:18 | PN ---
Date/Time of Note Date/Time of Note DATE: 02/13/19 TIME: 11:17 Assessment/Plan VTE Prophylaxis Risk score (from Nsg)>0 risk: 4 SCD applied (from Nsg): Yes Pharmacological prophylaxis: LMWH Lines/Catheters IV Catheter Type (from Nrsg): Peripheral IV Assessment/Plan Assessment/Plan 49 yo paraplegic man presents with R leg cellulitis # right lower extremity cellulitis: - Arising from lateral leg ulcer. - On my exam cellulitis has completely resolved. - Continue vanco and zosyn for now, transition to PO bactrim or clinda. - Wound care #Ischial ulcers - Bilateral ischial stage 3 ulcers. - Continue wound care. - For these will likely need SNF placement for offloading. 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 - Currently compensated at stage C1 with LVEF>55%. - Serial monitoring. #Elevated lipase - Tolerating regular diet - No more epigastric pain. - I do not suspect pancreatitis. #Paraplegia - Complicated by neuropathic pain and muscle spasm - Cont home meds (verbal, per patient:) - MS Contin 30 mg BID - Baclofen 40mg BID - gabapentin 600mg BID - Also daily PT - CM for placement. # history of illicit drug use: - Currently EtOH, drug screen negative # DVT GI prophylaxis: Lovenox, no GI prophylaxis indicated Dispo: SNF placement. Result Diagram: 02/12/19 0602 02/12/19 0602 Subjective 24 Hr Interval Summary Free Text/Dictation No acute overnight events. Patient feeling well. Exam/Review of Systems Exam Vitals Vital Signs Date Temp Pulse Resp B/P (MAP) Pulse Ox O2 O2 Flow FiO2 Time Delivery Rate 02/13/19 97.6 56 16 112/56 96 Room Air 07:30 (74) Intake and Output 02/12/19 02/12/19 02/13/19 1515:00 23:00 07:00 IntakeIntake Total 970 ml 800 ml OutputOutput Total 800 ml 2500 ml BalanceBalance 170 ml -1700 ml Exam General: Patient is currently lying in bed he in no distress. HEENT: Atraumatic, normocephalic. The pupils are equal, round and reactive. Extraocular motor are intact Neck: Supple with full range of motion. No rigidity or meningismus Chest: Nontender Lungs: Clear to auscultation bilaterally no crackles rales or wheezing Heart: Regular rate and rhythm. 3/6 systolic and also diastolic murmur. Abdomen: Soft , nontender, nondistended , bowel sounds are present. No guarding no rebound tenderness , No masses or organomegaly. Extremities: Right lateral leg ulcer, clean based, no surrounding erythema or induration. Results Results 24hrs Laboratory Tests Test 02/12/19 11:36 Vancomycin Level Trough 8.1 L Medications Medication Current Medications IV Flush (NS 3 ml) 3 ml PER PROTOCOL IV ; Start 02/10/19 at 23:00 Ondansetron HCl (Zofran Inj) 4 mg Q6H PRN IV NAUSEA/VOMITING; Start 02/10/19 at 23:00 Acetaminophen (Tylenol Tab) 650 mg Q6H PRN PO .PAIN 1-3 OR TEMP; Start 02/10/19 at 23:00 Docusate Sodium (Colace) 100 mg Q12H PRN PO .CONSTIPATION Last administered on 02/13/19 08:48; Admin Dose 100 MG; Start 02/10/19 at 23:00 Bisacodyl (Dulcolax) 5 mg DAILY PRN PO .CONSTIPATION Last administered on at 01:05; Admin Dose 5 MG; Start 02/10/19 at 23:00 Enoxaparin Sodium (Lovenox) 40 mg DAILY SC Last administered on 02/13/19 08:47; Admin Dose 40 MG; Start 02/11/19 at 09:00 Vancomycin HCl (Vanco Iv Per Pharmacy) VANCOMYCIN PER PHARMACY PER PROTOCOL XX ; Start 02/10/19 at 23:00 Morphine Sulfate (Ms Contin (Er)) 30 mg BID PO Last administered on 02/13/19 08:48; Admin Dose 30 MG; Start 02/10/19 at 23:30 Gabapentin (Neurontin) 600 mg BID PO Last administered on 02/13/19 08:47; Admin Dose 600 MG; Start 02/11/19 at 09:00 Acetaminophen/ Hydrocodone Bitart ([place] (10/325)) 1 tab Q6H PRN PO PAIN LEVEL 1-3 Last administered on 02/11/19at 19:59; Admin Dose 1 TAB; Start 02/11/19 at 02:24 Miscellaneous Information (Pending [facility] Order For Wound Care) This patient oliveros... PRN PRN XX WOUND CARE; Start 02/11/19 at 05:00 Baclofen (Lioresal) 40 mg BID PO Last administered on 02/13/19 08:47; Admin D ose 40 MG; Start 02/11/19 at 21:00 Morphine Sulfate (morphine) 2 mg Q4H PRN IV SEVERE PAIN LEVEL 7-10 Last administered on 02/13/19 05:54; Admin Dose 2 MG; Start 02/11/19 at 13:00 Levothyroxine Sodium (Synthroid) 100 mcg DAILY@06 PO Last administered on 02/13/19 05:53; Admin Dose 100 MCG; Start 02/12/19 at 14:00 Vancomycin/Sodium Chloride 250 ml @ 125 mls/hr Q8H IVPB Last administered on 02/13/19 04:53; Admin Dose 125 MLS/HR; Start 02/12/19 at 21:00 Polyethylene Glycol (Miralax) 17 gm DAILY PO ; Start 02/13/19 at 12:00 JULIA RIVERA MD Feb 13, 2019 11:18
[2019-02-13] MEDS: HYDROCODONE/APAP (10/325) TAB PO PRN ×2 (14:06→23:54)
[2019-02-13 14:28] VITALS: BP 129/57; PULSE 57; RESP 16
[2019-02-13 20:00] VITALS: BP 145/65; PULSE 67; RESP 17
[2019-02-13] MEDS: TRIMETHOPRIM/SULFAMETHOX (DS) TAB PO SCH (20:36)
[2019-02-14] MEDS: BISACODYL (EC) 5 MG TAB PO PRN
[2019-02-14 02:00] VITALS: BP 109/52; PULSE 89; RESP 19
[2019-02-14] MEDS: morphine 2 MG INJ IV PRN ×4 (02:45→20:12)
[2019-02-14] MEDS: LEVOTHYROXINE 100 MCG TAB PO SCH (06:28)
[2019-02-14] MEDS: GABAPENTIN 300 MG CAP PO SCH ×2 (08:22→21:27)
[2019-02-14] MEDS: morphine (ER) 30 MG TAB PO SCH ×2 (08:22→21:28)
[2019-02-14] MEDS: BACLOFEN 10 MG TAB PO SCH ×2 (08:22→21:27)
[2019-02-14] MEDS: TRIMETHOPRIM/SULFAMETHOX (DS) TAB PO SCH ×2 (08:22→21:27)
[2019-02-14] MEDS: POLYETHYLENE GLYCOL 17 GM PACKET PO SCH (08:22)
[2019-02-14] MEDS: BALSAM PERU/CASTOR OIL 60 GM TUBE TOP SCH ×2 (08:23→21:29)
[2019-02-14] MEDS: ENOXAPARIN 40 MG/0.4 ML SYG SC SCH (08:23)
[2019-02-14 08:33] VITALS: BP 93/47; PULSE 71; RESP 18
[2019-02-14 13:50] VITALS: BP 101/47; PULSE 62; RESP 18
--- NOTE | 2019-02-14 14:55 | PN ---
Date/Time of Note Date/Time of Note DATE: 02/14/19 TIME: 14:51 Assessment/Plan VTE Prophylaxis Risk score (from Nsg)>0 risk: 4 SCD applied (from Nsg): Yes Pharmacological prophylaxis: LMWH Lines/Catheters IV Catheter Type (from Nrsg): [place] Urinary Cath still in place: No Assessment/Plan Assessment/Plan 49 yo paraplegic man presents with R leg cellulitis, found to have stage III ischial ulcers. # right lower extremity cellulitis: - Arising from lateral leg ulcer. - On my exam cellulitis has completely resolved. - Complete a 5-7 day course of PO Bactrim. - Wound care #Ischial ulcers - Bilateral ischial stage 3 ulcers. - Continue wound care. - I spoke to Dr. Dumont (gen surg) and Dr. Carter (plastics), neither of them are able to offer debridement or other management. - For these will likely need SNF placement for wound care and offloading. 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 - Currently compensated at stage C1 with LVEF>55%. - Serial monitoring. #Elevated lipase - Tolerating regular diet - No more epigastric pain. - I do not suspect pancreatitis. #Paraplegia - Complicated by neuropathic pain and muscle spasm - Cont home meds (verbal, per patient:) - MS Contin 30 mg BID - Baclofen 40mg BID - gabapentin 600mg BID - Also daily PT - CM for placement. # history of illicit drug use: - Currently EtOH, drug screen negative # DVT GI prophylaxis: Lovenox, no GI prophylaxis indicated Dispo: SNF placement. Result Diagram: 02/14/1936 02/14/1936 Subjective 24 Hr Interval Summary Free Text/Dictation No acute overnight events. Patient doing well. Exam/Review of Systems Exam Vitals Vital Signs Date Temp Pulse Resp B/P (MAP) Pulse Ox O2 O2 Flow FiO2 Time Delivery Rate 02/14/19 98.2 71 18 93/47 (62) 97 Room Air 08:33 Intake and Output 02/13/19 02/13/19 02/14/19 1515:00 23:00 07:00 IntakeIntake Total 1130 ml 670 ml OutputOutput Total 650 ml 1200 ml BalanceBalance 1130 ml -650 ml -530 ml Exam General: Patient is currently lying in bed he in no distress. HEENT: Atraumatic, normocephalic. The pupils are equal, round and reactive. Extraocular motor are intact Neck: Supple with full range of motion. No rigidity or meningismus Chest: Nontender Lungs: Clear to auscultation bilaterally no crackles rales or wheezing Heart: Regular rate and rhythm. 3/6 systolic and also diastolic murmur. Abdomen: Soft , nontender, nondistended , bowel sounds are present. No guarding no rebound tenderness , No masses or organomegaly. Extremities: Right lateral leg ulcer, clean based, no surrounding erythema or induration. Results Results 24hrs Laboratory Tests Test 02/14/19 06:36 02/14/19 11:05 White Blood Count 6.2 Red Blood Count 4.14 L Hemoglobin 13.0 L Hematocrit 38.8 L Mean Corpuscular Volume 93.7 Mean Corpuscular Hemoglobin 31.4 Mean Corpuscular Hemoglobin Concent 33.5 Red Cell Distribution Width 13.2 Platelet Count 411 Mean Platelet Volume 8.4 Immature Granulocytes % 0.500 H Neutrophils % 46.6 Lymphocytes % 27.8 Monocytes % 12.6 H Eosinophils % 11.7 H Basophils % 0.8 Nucleated Red Blood Cells % 0.0 Immature Granulocytes # 0.030 Neutrophils # 2.9 Lymphocytes # 1.7 Monocytes # 0.8 Eosinophils # 0.7 H Basophils # 0.1 Nucleated Red Blood Cells # 0.0 Sodium Level 142 Potassium Level 4.8 Chloride Level 105 Carbon Dioxide Level 32 H Anion Gap 5 Blood Urea Nitrogen 17 Creatinine 0.87 Est Glomerular Filtrat Rate mL/min > 60 Glucose Level 84 Calcium Level 8.8 Total Bilirubin 0.2 Direct Bilirubin 0.00 Indirect Bilirubin 0.2 Aspartate Amino Transf (AST/SGOT) 60 H Alanine Aminotransferase (ALT/SGPT) 47 Alkaline Phosphatase 47 Total Protein 6.4 Albumin 3.2 L Globulin 3.20 Albumin/Globulin Ratio 1.00 Urine Color YELLOW Urine Clarity CLEAR Urine pH 6.0 Urine Specific [place] 1.015 Urine Ketones NEGATIVE Urine Nitrite NEGATIVE Urine Bilirubin NEGATIVE Urine Urobilinogen NEGATIVE Urine Leukocyte Esterase NEGATIVE Urine Hemoglobin NEGATIVE Urine Glucose NEGATIVE Urine Total Protein NEGATIVE Urine Opiates Screen Positive Urine Barbiturates Negative Urine Amphetamines Screen Negative Urine Benzodiazepines Screen Negative Urine Cocaine Screen Negative Urine Cannabinoids Positive Medications Medication Current Medications IV Flush (NS 3 ml) 3 ml PER PROTOCOL IV ; Start 02/10/19 at 23:00 Ondansetron HCl (Zofran Inj) 4 mg Q6H PRN IV NAUSEA/VOMITING; Start 02/10/19 at 23:00 Acetaminophen (Tylenol Tab) 650 mg Q6H PRN PO .PAIN 1-3 OR TEMP; Start 02/10/19 at 23:00 Docusate Sodium (Colace) 100 mg Q12H PRN PO .CONSTIPATION Last administered on 02/13/19 08:48; Admin Dose 100 MG; Start 02/10/19 at 23:00 Bisacodyl (Dulcolax) 5 mg DAILY PRN PO .CONSTIPATION Last administered on 00:00; Admin Dose 5 MG; Start 02/10/19 at 23:00 Enoxaparin Sodium (Lovenox) 40 mg DAILY SC Last administered on 02/14/19 08:23; Admin Dose 40 MG; Start 02/11/19 at 09:00 Morphine Sulfate (Ms Contin (Er)) 30 mg BID PO Last administered on 02/14/19 08:22; Admin Dose 30 MG; Start 02/10/19 at 23:30 Gabapentin (Neurontin) 600 mg BID PO Last administered on 02/14/19 08:22; Admin Dose 600 MG; Start 02/11/19 at 09:00 Acetaminophen/ Hydrocodone Bitart ([place] (10/325)) 1 tab Q6H PRN PO PAIN LEVEL 1-3 Last administered on 02/13/19 23:54; Admin Dose 1 TAB; Start 02/11/19 at 02:24 Miscellaneous Information (Pending Santyl Order For Wound Care) This patient oliveros... PRN PRN XX WOUND CARE; Start 02/11/19 at 05:00 Baclofen (Lioresal) 40 mg BID PO Last administered on 02/14/19 08:22; Admin Do se 40 MG; Start 02/11/19 at 21:00 Morphine Sulfate (morphine) 2 mg Q4H PRN IV SEVERE PAIN LEVEL 7-10 Last administered on 02/14/19 14:04; Admin Dose 2 MG; Start 02/11/19 at 13:00 Levothyroxine Sodium (Synthroid) 100 mcg DAILY@06 PO Last administered on 02/14/19 06:28; Admin Dose 100 MCG; Start 02/12/19 at 14:00 Polyethylene Glycol (Miralax) 17 gm DAILY PO Last administered on 02/14/19at 08:22; Admin Dose 17 GM; Start 02/13/19 at 12:00 Trimethoprim/ Sulfamethoxazole (Bactrim (Ds)) 1 tab BID PO Last administered on 02/14/19at 08:22; Admin Dose 1 TAB; Start 02/13/19 at 21:00 JULIA RIVERA MD Feb 14, 2019 14:55
[2019-02-14] MEDS: HYDROCODONE/APAP (10/325) TAB PO PRN ×2 (15:51→22:41)
[2019-02-14 20:00] VITALS: BP 90/48; PULSE 58; RESP 17
[2019-02-14] MEDS: DOCUSATE SODIUM 100 MG CAP PO PRN (22:41)
[2019-02-15] VITALS (8 sets, daily range): BP systolic 85–124; BP diastolic 43–60; PULSE 54–65; RESP 16–19
[2019-02-15] MEDS: morphine 2 MG INJ IV PRN ×4 (00:21→23:24)
[2019-02-15] MEDS ORDERED: SOD CHLORIDE 0.9% 1,000 ML IV ONE ×2 (02:30→07:00)
[2019-02-15] MEDS: LEVOTHYROXINE 100 MCG TAB PO SCH (06:50)
[2019-02-15] MEDS ORDERED: KETOROLAC 15 MG INJ IV PRN (07:00)
[2019-02-15] MEDS: TRIMETHOPRIM/SULFAMETHOX (DS) TAB PO SCH ×2 (10:37→20:03)
[2019-02-15] MEDS: BACLOFEN 10 MG TAB PO SCH ×2 (10:37→20:03)
[2019-02-15] MEDS: morphine (ER) 30 MG TAB PO SCH ×2 (10:38→20:03)
[2019-02-15] MEDS: POLYETHYLENE GLYCOL 17 GM PACKET PO SCH (10:38)
[2019-02-15] MEDS: GABAPENTIN 300 MG CAP PO SCH ×2 (10:38→20:03)
[2019-02-15] MEDS: BALSAM PERU/CASTOR OIL 60 GM TUBE TOP SCH ×2 (10:39→20:03)
[2019-02-15] MEDS: ENOXAPARIN 40 MG/0.4 ML SYG SC SCH (10:40)
--- NOTE | 2019-02-15 12:25 | PN ---
Date/Time of Note Date/Time of Note DATE: 02/15/19 TIME: 12:24 Assessment/Plan VTE Prophylaxis Risk score (from Nsg)>0 risk: 4 SCD applied (from Nsg): Yes Pharmacological prophylaxis: LMWH Lines/Catheters IV Catheter Type (from Nrsg): Peripheral IV Urinary Cath still in place: No Assessment/Plan Assessment/Plan 49 yo paraplegic man presents with R leg cellulitis, found to have stage III ischial ulcers. # right lower extremity cellulitis: - Arising from lateral leg ulcer. - On my exam cellulitis has completely resolved. - Complete a 5-7 day course of PO Bactrim. - Wound care #Ischial ulcers - Bilateral ischial stage 3 ulcers. - Continue wound care. - I spoke to Dr. Dumont (gen surg) and Dr. Carter (plastics), neither of them are able to offer debridement or other management. - For these will likely need SNF placement for wound care and offloading. 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 - Currently compensated at stage C1 with LVEF>55%. - Serial monitoring. #Paraplegia - Complicated by neuropathic pain and muscle spasm - Cont home meds (verbal, per patient:) - MS Contin 30 mg BID - Baclofen 40mg BID - gabapentin 600mg BID - Also daily PT - CM for placement. # history of illicit drug use: - Currently EtOH, drug screen negative # DVT GI prophylaxis: Lovenox, no GI prophylaxis indicated Dispo: SNF placement. Result Diagram: 02/14/19 0636 02/14/19 0636 Subjective 24 Hr Interval Summary Free Text/Dictation No acute overnight events. Patient feeling well. Exam/Review of Systems Exam Vitals Vital Signs Date Temp Pulse Resp B/P (MAP) Pulse Ox O2 O2 Flow FiO2 Time Delivery Rate 02/15/19 98.3 65 18 103/46 95 Room Air 09:42 (65) Intake and Output 02/14/19 02/14/19 02/15/19 1414:59 22:59 06:59 IntakeIntake Total 1020 ml 460 ml 1000 ml OutputOutput Total 1150 ml BalanceBalance 1020 ml -690 ml 1000 ml Exam General: Patient is currently lying in bed he in no distress. HEENT: Atraumatic, normocephalic. The pupils are equal, round and reactive. Extraocular motor are intact Neck: Supple with full range of motion. No rigidity or meningismus Chest: Nontender Lungs: Clear to auscultation bilaterally no crackles rales or wheezing Heart: Regular rate and rhythm. 3/6 systolic and also diastolic murmur. Abdomen: Soft , nontender, nondistended , bowel sounds are present. No guarding no rebound tenderness , No masses or organomegaly. Extremities: Right lateral leg ulcer, clean based, no surrounding erythema or induration. Results Results 24hrs Laboratory Tests Test 02/15/19 07:06 Lactic Acid Level 0.8 Medications Medication Current Medications IV Flush (NS 3 ml) 3 ml PER PROTOCOL IV ; Start 02/10/19 at 23:00 Ondansetron HCl (Zofran Inj) 4 mg Q6H PRN IV NAUSEA/VOMITING; Start 02/10/19 at 23:00 Acetaminophen (Tylenol Tab) 650 mg Q6H PRN PO .PAIN 1-3 OR TEMP; Start 02/10/19 at 23:00 Docusate Sodium (Colace) 100 mg Q12H PRN PO .CONSTIPATION Last administered on 02/14/19at 22:41; Admin Dose 100 MG; Start 02/10/19 at 23:00 Bisacodyl (Dulcolax) 5 mg DAILY PRN PO .CONSTIPATION Last administered on 02/14/19at 00:00; Admin Dose 5 MG; Start 02/10/19 at 23:00 Enoxaparin Sodium (Lovenox) 40 mg DAILY SC Last administered on 02/15/19 10:40; Admin Dose 40 MG; Start 02/11/19 at 09:00 Morphine Sulfate (Ms Contin (Er)) 30 mg BID PO Last administered on 02/15/19 10:38; Admin Dose 30 MG; Start 02/10/19 at 23:30 Gabapentin (Neurontin) 600 mg BID PO Last administered on 02/15/19 10:38; Admin Dose 600 MG; Start 02/11/19 at 09:00 Acetaminophen/ Hydrocodone Bitart ([place] (10/325)) 1 tab Q6H PRN PO PAIN LEVEL 1-3 Last administered on 02/14/19 22:41; Admin Dose 1 TAB; Start 02/11/19 at 02:24 Miscellaneous Information (Pending [facility] Order For Wound Care) This patient oliveros... PRN PRN XX WOUND CARE; Start 02/11/19 at 05:00 Baclofen (Lioresal) 40 mg BID PO Last administered on 02/15/19at 10:37; Admin Dose 40 MG; Start 02/11/19 at 21:00 Morphine Sulfate (morphine) 2 mg Q4H PRN IV SEVERE PAIN LEVEL 7-10 Last administered on 02/15/19 00:21; Admin Dose 2 MG; Start 02/11/19 at 13:00 Levothyroxine Sodium (Synthroid) 100 mcg DAILY@06 PO Last administered on 02/15/19 06:50; Admin Dose 100 MCG; Start 02/12/19 at 14:00 Polyethylene Glycol (Miralax) 17 gm DAILY PO Last administered on 02/15/19at 1 0:38; Admin Dose 17 GM; Start 02/13/19 at 12:00 Trimethoprim/ Sulfamethoxazole (Bactrim (Ds)) 1 tab BID PO Last administered on 02/15/19at 10:37; Admin Dose 1 TAB; Start 02/13/19 at 21:00 Ketorolac Tromethamine (Toradol) 15 mg Q6H PRN IV PAIN; Start 02/15/19 at 07:00; Stop 02/18/19 at 06:59 JULIA RIVERA MD Feb 15, 2019 12:25
[2019-02-15] MEDS: HYDROCODONE/APAP (10/325) TAB PO PRN (17:02)
[2019-02-16 02:00] VITALS: BP 98/46; PULSE 54; RESP 17
[2019-02-16] MEDS: HYDROCODONE/APAP (10/325) TAB PO PRN ×2 (02:44→13:04)
[2019-02-16] MEDS: morphine 2 MG INJ IV PRN ×4 (05:17→19:56)
[2019-02-16] MEDS: LEVOTHYROXINE 100 MCG TAB PO SCH (05:17)
[2019-02-16] MEDS ORDERED: VANCOMYCIN IV PER PHARMACY XX SCH (06:00)
[2019-02-16] MEDS ORDERED: VANCOMYCIN 1 GM 250 ML IVPB SCH (06:30)
[2019-02-16 08:00] VITALS: BP 103/45; PULSE 59; RESP 17
[2019-02-16] MEDS: morphine (ER) 30 MG TAB PO SCH ×2 (08:45→21:00)
[2019-02-16] MEDS: BACLOFEN 10 MG TAB PO SCH ×2 (08:45→20:58)
[2019-02-16] MEDS: GABAPENTIN 300 MG CAP PO SCH ×2 (08:45→20:58)
[2019-02-16] MEDS: POLYETHYLENE GLYCOL 17 GM PACKET PO SCH (08:45)
[2019-02-16] MEDS: TRIMETHOPRIM/SULFAMETHOX (DS) TAB PO SCH ×2 (08:46→21:00)
[2019-02-16] MEDS: BALSAM PERU/CASTOR OIL 60 GM TUBE TOP SCH ×2 (08:50→21:01)
[2019-02-16] MEDS: ENOXAPARIN 40 MG/0.4 ML SYG SC SCH (08:50)
--- NOTE | 2019-02-16 10:58 | PN ---
Date/Time of Note Date/Time of Note DATE: 02/16/19 TIME: 10:51 Assessment/Plan VTE Prophylaxis Risk score (from Ns)>0 risk: 6 SCD applied (from Ns): Yes Pharmacological prophylaxis: LMWH Lines/Catheters IV [facility] (from [facility]): Peripheral IV Urinary Cath still in place: No Assessment/Plan Assessment/Plan 1. Right lower extremity cellulitis, improving, on antibiotics 2. Ischial healed ulcers, off of pressure 3. Paraplegia complicated with neurological pain and muscle spasm, chronic, stable 4. Mod with CARLEY 1.21 and sever AI, cardiology outpatient 5. History of illicit drug use, currently EtOH, drug screen negative 6. DVT GI prophylaxis: Lovenox 7. Awaiting for SNF placement Result Diagram: 02/14/1963502/14/19635 Subjective 24 Hr Interval Summary Free Text/Dictation no fever Exam/Review of Systems Exam Vitals Vital Signs Date Temp Pulse Resp B/P (MAP) Pulse Ox O2 O2 Flow FiO2 Time Delivery Rate 02/16/19 97.9 59 17 103/45 99 08:00 (64) 02/15/19 Room Air 18:55 Intake and Output 02/15/19 02/15/19 02/16/19 1414:59 22:59 06:59 IntakeIntake Total 3100 ml 500 ml 840 ml OutputOutput Total 1600 ml 2350 ml 650 ml BalanceBalance 1500 ml -1850 ml 190 ml Constitutional: alert, oriented, well developed Head: normocephalic, atraumatic Eyes: nl conjunctiva, EOMI, nl lids, nl sclera, PERRL ENMT: nl external ears & nose, nl lips & teeth, nl nasal mucosa & septum Neck: supple, non-tender Respiratory: clear to auscultation, normal air movement; No congested cough, No crackles/rales, No diminished breath sounds, No intercostal retraction, No labored breathing, No respirations, No tactile fremitus, No wheezing, No other Cardiovascular: regular rate and rhythm, nl pulses; No bruits, No diastolic murmur, No edema, No gallop, No irregular rhythm, No jugular venous distention (JVD), No murmurs/extra sounds, No rub, No systolic murmur, No S3, No S4, No other Gastrointestinal: soft, nl liver, spleen, non-tender Musculoskeletal: nl extremities to inspection Extremities: other (right lower extremity wound, no redness) 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: [employer]AF 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, nl mental status, nl speech Medications Medication Current Medications IV Flush (NS 3 ml) 3 ml PER PROTOCOL IV ; Start 02/10/19 at 23:00 Ondansetron HCl (Zofran Inj) 4 mg Q6H PRN IV NAUSEA/VOMITING; Start 02/10/19 at 23:00 Acetaminophen (Tylenol Tab) 650 mg Q6H PRN PO .PAIN 1-3 OR TEMP; Start 02/10/19 at 23:00 Docusate Sodium (Colace) 100 mg Q12H PRN PO .CONSTIPATION Last administered on 02/14/19at 22:41; Admin Dose 100 MG; Start 02/10/19 at 23:00 Bisacodyl (Dulcolax) 5 mg DAILY PRN PO .CONSTIPATION Last administered on 02/14/19at 00:00; Admin Dose 5 MG; Start 02/10/19 at 23:00 Enoxaparin Sodium (Lovenox) 40 mg DAILY SC Last administered on 02/16/19 08:50; Admin Dose 40 MG; Start 02/11/19 at 09:00 Morphine Sulfate (Ms Contin (Er)) 30 mg BID PO Last administered on 02/16/19 08:45; Admin Dose 30 MG; Start 02/10/19 at 23:30 Gabapentin (Neurontin) 600 mg BID PO Last administered on 02/16/19at 08:45; Admin Dose 600 MG; Start 02/11/19 at 09:00 Acetaminophen/ Hydrocodone Bitart ([place] (10/325)) 1 tab Q6H PRN PO PAIN LEVEL 1-3 Last administered on 02/16/19at 02:44; Admin Dose 1 TAB; Start 02/11/19 at 02:24 Miscellaneous Information (Pending Santyl Order For Wound Care) This patient oliveros... PRN PRN XX WOUND CARE; Start 02/11/19 at 05:00 Baclofen (Lioresal) 40 mg BID PO Last administered on 02/16/19at 08:45; Admin Dose 40 MG; Start 02/11/19 at 21:00 Morphine Sulfate (morphine) 2 mg Q4H PRN IV SEVERE PAIN LEVEL 7-10 Last administered on 02/16/19at 05:17; Admin Dose 2 MG; Start 02/11/19 at 13:00 Levothyroxine Sodium (Synthroid) 100 mcg DAILY@06 PO Last administered on 02/16/19at 05:17; Admin Dose 100 MCG; Start 02/12/19 at 14:00 Polyethylene Glycol (Miralax) 17 gm DAILY PO Last administered on 02/16/19at 08:45; Admin Dose 17 GM; Start 02/13/19 at 12:00 Trimethoprim/ Sulfamethoxazole (Bactrim (Ds)) 1 tab BID PO Last administered on 02/16/19at 08:46; Admin Dose 1 TAB; Start 02/13/19 at 21:00 Vancomycin HCl (Vanco Iv Per Pharmacy) VANCOMYCIN PER PHARMACY PER PROTOCOL XX ; Start 02/16/19 at 06:00 Vancomycin/Sodium Chloride 250 ml @ 125 mls/hr Q8H IVPB ; Start 02/16/19 at 14:00 DMITRY CALHOUN MD Feb 16, 2019 10:58
[2019-02-16] MEDS ORDERED: VANCOMYCIN 750 MG (PMX) 250 ML IVPB SCH (14:00)
[2019-02-16 15:24] VITALS: BP 104/45; PULSE 55; RESP 18
[2019-02-16 19:49] VITALS: BP 108/49; PULSE 55; RESP 18
[2019-02-17] MEDS ORDERED: BISACODYL 10 MG SUPP PR ONE (00:30)
[2019-02-17 01:42] VITALS: BP 101/49; PULSE 58; RESP 18
[2019-02-17] MEDS: morphine 2 MG INJ IV PRN ×5 (01:48→22:43)
[2019-02-17] MEDS: LEVOTHYROXINE 100 MCG TAB PO SCH (05:12)
[2019-02-17 07:44] VITALS: BP 95/51; PULSE 53; RESP 18
[2019-02-17] MEDS: ENOXAPARIN 40 MG/0.4 ML SYG SC SCH (09:21)
[2019-02-17] MEDS: POLYETHYLENE GLYCOL 17 GM PACKET PO SCH (09:23)
[2019-02-17] MEDS: GABAPENTIN 300 MG CAP PO SCH ×2 (09:23→20:03)
[2019-02-17] MEDS: morphine (ER) 30 MG TAB PO SCH ×2 (09:23→20:03)
[2019-02-17] MEDS: BACLOFEN 10 MG TAB PO SCH ×2 (09:23→20:03)
[2019-02-17] MEDS: BALSAM PERU/CASTOR OIL 60 GM TUBE TOP SCH ×2 (09:24→20:06)
[2019-02-17] MEDS ORDERED: VANCOMYCIN IV PER PHARMACY XX SCH (09:30)
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
[2019-02-17] MEDS: VANCOMYCIN 1 GM (PMX) 250 ML IVPB SCH ×2 (12:00→23:23)
[2019-02-17] MEDS ORDERED: VANCOMYCIN TROUGH XX ONE (13:30)
[2019-02-17] MEDS: MEROPENEM 1 GM/50ML(PMX) 50 ML IVPB SCH ×2 (13:47→22:43)
[2019-02-17 14:07] VITALS: BP 99/47; PULSE 58; RESP 18
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
[2019-02-17 20:11] VITALS: BP 109/55; PULSE 58; RESP 19
[2019-02-18 02:30] VITALS: BP 138/63; PULSE 61; RESP 18
[2019-02-18] MEDS: MEROPENEM 1 GM/50ML(PMX) 50 ML IVPB SCH ×3 (05:29→21:17)
[2019-02-18] MEDS: LEVOTHYROXINE 100 MCG TAB PO SCH (05:29)
[2019-02-18 07:44] VITALS: BP 125/52; PULSE 58; RESP 16
[2019-02-18] MEDS: BACLOFEN 10 MG TAB PO SCH ×2 (08:43→20:10)
[2019-02-18] MEDS: morphine (ER) 30 MG TAB PO SCH ×2 (08:44→20:10)
[2019-02-18] MEDS: GABAPENTIN 300 MG CAP PO SCH ×2 (08:44→20:10)
[2019-02-18] MEDS: POLYETHYLENE GLYCOL 17 GM PACKET PO SCH (08:45)
[2019-02-18] MEDS: ENOXAPARIN 40 MG/0.4 ML SYG SC SCH (08:47)
[2019-02-18] MEDS: BALSAM PERU/CASTOR OIL 60 GM TUBE TOP SCH ×2 (08:48→20:11)
[2019-02-18] MEDS: morphine 2 MG INJ IV PRN ×3 (11:10→21:17)
[2019-02-18] MEDS: VANCOMYCIN 1 GM (PMX) 250 ML IVPB SCH ×2 (11:11→23:06)
[2019-02-18 14:00] VITALS: BP 114/48; PULSE 58; RESP 18
[2019-02-18] MEDS: HYDROCODONE/APAP (10/325) TAB PO PRN (14:13)
--- NOTE | 2019-02-18 14:31 | CONS ---
Assessment/Plan Assessment/Plan Hospital Course (Demo Recall) RLE cellulitis UTI==> GNR/ESBL MRSA + nares Paraplegia N bladder Constipation Hx polysubstance abuse Bacteremia==> cw contaminant Abx: Varun Chiu Plan: Stable, continue abx Consultation Date/Type/Reason Admit Date/Time Feb 10, 2019 at 23:43 Initial Consult Date Type of Consult id Date/Time of Note DATE: 02/18/19 TIME: 14:29 Exam/Review of Systems Exam Vitals Vital Signs Date Temp Pulse Resp B/P (MAP) Pulse Ox O2 O2 Flow FiO2 Time Delivery Rate 02/18/19 98.6 58 16 125/52 98 07:44 (76) 02/17/19 Room Air 14:07 Intake and Output 02/17/19 02/17/19 02/18/19 1515:00 23:00 07:00 IntakeIntake Total 500 ml 300 ml OutputOutput Total 1500 ml BalanceBalance 500 ml -1500 ml 300 ml Results Result Diagram: 02/18/19 0428 02/18/19 0428 Results 24hrs Laboratory Tests Test 02/18/19 04:28 White Blood Count 6.1 Red Blood Count 4.10 L Hemoglobin 12.8 L Hematocrit 39.2 L Mean Corpuscular Volume 95.6 Mean Corpuscular Hemoglobin 31.2 Mean Corpuscular Hemoglobin Concent 32.7 Red Cell Distribution Width 13.4 Platelet Count 443 H Mean Platelet Volume 8.4 Immature Granulocytes % 0.700 H Neutrophils % 50.4 Lymphocytes % 29.9 Monocytes % 9.5 Eosinophils % 8.7 H Basophils % 0.8 Nucleated Red Blood Cells % 0.0 Immature Granulocytes # 0.040 H Neutrophils # 3.1 Lymphocytes # 1.8 Monocytes # 0.6 Eosinophils # 0.5 Basophils # 0.1 Nucleated Red Blood Cells # 0.0 Sodium Level 142 Potassium Level 4.8 Chloride Level 107 Carbon Dioxide Level 27 Anion Gap 8 Blood Urea Nitrogen 23 H Creatinine 0.74 Est Glomerular Filtrat Rate mL/min > 60 Glucose Level 85 Calcium Level 9.1 Medications Medication Current Medications IV Flush (NS 3 ml) 3 ml PER PROTOCOL IV ; Start 02/10/19 at 23:00 Ondansetron HCl (Zofran Inj) 4 mg Q6H PRN IV NAUSEA/VOMITING; Start 02/10/19 at 23:00 Acetaminophen (Tylenol Tab) 650 mg Q6H PRN PO .PAIN 1-3 OR TEMP; Start 02/10/19 at 23:00 Docusate Sodium (Colace) 100 mg Q12H PRN PO .CONSTIPATION Last administered on 02/14/19 22:41; Admin Dose 100 MG; Start 02/10/19 at 23:00 Bisacodyl (Dulcolax) 5 mg DAILY PRN PO .CONSTIPATION Last administered on 02/14/19 00:00; Admin Dose 5 MG; Start 02/10/19 at 23:00 Enoxaparin Sodium (Lovenox) 40 mg DAILY SC Last administered on 02/18/19 08:47; Admin Dose 40 MG; Start 02/11/19 at 09:00 Morphine Sulfate (Ms Contin (Er)) 30 mg BID PO Last administered on 02/18/19 08:44; Admin Dose 30 MG; Start 02/10/19 at 23:30 Gabapentin (Neurontin) 600 mg BID PO Last administered on 02/18/19 08:44; Admin Dose 600 MG; Start 02/11/19 at 09:00 Acetaminophen/ Hydrocodone Bitart ([place] (10/325)) 1 tab Q6H PRN PO PAIN LEVEL 1-3 Last administered on 02/18/19 14:13; Admin Dose 1 TAB; Start 02/11/19 at 02:24 Miscellaneous Information (Pending [facility] Order For Wound Care) This patient oliveros. .. PRN PRN XX WOUND CARE; Start 02/11/19 at 05:00 Baclofen (Lioresal) 40 mg BID PO Last administered on 02/18/19 08:43; Admin Dose 40 MG; Start 02/11/19 at 21:00 Morphine Sulfate (morphine) 2 mg Q4H PRN IV SEVERE PAIN LEVEL 7-10 Last administered on 02/18/19 11:10; Admin Dose 2 MG; Start 02/11/19 at 13:00 Levothyroxine Sodium (Synthroid) 100 mcg DAILY@06 PO Last administered on 02/18/19 05:29; Admin Dose 100 MCG; Start 02/12/19 at 14:00 Polyethylene Glycol (Miralax) 17 gm DAILY PO Last administered on 02/18/19 08:45; Admin Dose 17 GM; Start 02/13/19 at 12:00 Meropenem/Sodium Chloride 50 ml @ 100 mls/hr Q8 IVPB Last administered on 02/18/19at 14:13; Admin Dose 100 MLS/HR; Start 02/17/19 at 14:00 Vancomycin HCl (Vanco Iv Per Pharmacy) VANCOMYCIN PER PHARMACY PER PROTOCOL XX ; Start 02/17/19 at 09:30 Vancomycin HCl 250 ml @ 166.667 mls/hr Q12H IVPB Last administered on 02/18/19at 11:11; Admin Dose 166.667 MLS/HR; Start 02/17/19 at 11:00 Miscellaneous Information (*Rx Drug Level Order Reminder*) VANCOMYCIN TROUGH @ 030, 02/18 @2030, 02/18 XX ; Start 02/18/19 at 20:30 RADHA HUTCHISON NP Feb 18, 2019 14:31
[2019-02-18] MEDS: DOCUSATE SODIUM 100 MG CAP PO PRN (14:34)
[2019-02-18] MEDS: ONDANSETRON 4 MG INJ IV PRN (14:34)
[2019-02-18] MEDS: BISACODYL (EC) 5 MG TAB PO PRN (14:34)
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
[2019-02-18] MEDS ORDERED: POLYETHYLENE GLYCOL 17 GM PACKET PO SCH (16:30)
[2019-02-18] MEDS: MUPIROCIN 2% 22 GM OINT TOP SCH ×2 (16:59→23:07)
[2019-02-18 20:00] VITALS: BP 98/46; PULSE 56; RESP 17
[2019-02-19] MEDS ORDERED: BISACODYL 10 MG SUPP PR PRN
[2019-02-19] MEDS: HYDROCODONE/APAP (10/325) TAB PO PRN ×4 (00:01→22:38)
[2019-02-19 02:00] VITALS: BP 99/51; PULSE 65; RESP 19
[2019-02-19] MEDS: morphine 2 MG INJ IV PRN ×5 (02:03→20:26)
[2019-02-19] MEDS: LEVOTHYROXINE 100 MCG TAB PO SCH (05:59)
[2019-02-19] MEDS: MEROPENEM 1 GM/50ML(PMX) 50 ML IVPB SCH ×3 (05:59→21:34)
--- NOTE | 2019-02-19 07:11 | PN ---
DATE: 02/18/2019 SUBJECTIVE: The patient is awake, complaining of numbness in bilateral upper extremities. No fevers overnight. WBC 6.1, platelets 443, neutrophils 50.4, BUN 23, creatinine 0.74. MICROBIOLOGY: Blood culture grew coagulase-negative staph species. MRSA swab positive. Urine cultu re grew Proteus mirabilis and Klebsiella extended-spectrum beta-lactamase. DIAGNOSTICS: CT of the abdomen and pelvis yesterday revealed fecal filled colon, suggestive for cons tipation. No diverticulitis, no obstruction or inflammation, no evidence of hydronephrosis, bilatera l basilar atelectasis. ANTIMICROBIALS: 1. IV vancomycin. 2. Meropenem. PHYSICAL EXAMINATION: GENERAL: This is a chronically ill-appearing, middle-aged man who is awake, in no distress. HEENT: Head atraumatic, normocephalic. Sclerae anicteric. Buccal mucosa pink. NECK: Supple. CHEST: Rise symmetrical. Breath sounds clear. HEART: S1, S2. ABDOMEN: Soft, bowel sounds present. EXTREMITIES: Right lower extremity dressing intact. ASSESSMENT: 1. Polymicrobial urinary tract infection. 2. Right lower extremity cellulitis. 3. DICTATION ENDS HERE Dictated By: RADHA HUTCHISON [employer]ISHER for MEG ROSADO MD NI/NTS Conf#: [id number] DID#: [id number] CC: RAFA DE DIOS MD;*EndCC*
[2019-02-19 08:00] VITALS: BP 93/46; PULSE 57; RESP 18
[2019-02-19] MEDS: GABAPENTIN 300 MG CAP PO SCH ×2 (08:19→20:25)
[2019-02-19] MEDS: BACLOFEN 10 MG TAB PO SCH ×2 (08:19→20:25)
[2019-02-19] MEDS: morphine (ER) 30 MG TAB PO SCH ×2 (08:20→21:34)
[2019-02-19] MEDS: POLYETHYLENE GLYCOL 17 GM PACKET PO SCH (08:21)
[2019-02-19] MEDS: ENOXAPARIN 40 MG/0.4 ML SYG SC SCH (08:23)
[2019-02-19] MEDS: NACL 0.9% 3 ML SYG IV SCH (08:27)
[2019-02-19] MEDS: MUPIROCIN 2% 22 GM OINT TOP SCH ×3 (08:39→20:30)
[2019-02-19] MEDS: BALSAM PERU/CASTOR OIL 60 GM TUBE TOP SCH ×2 (08:39→20:31)
[2019-02-19] MEDS: VANCOMYCIN 1 GM (PMX) 250 ML IVPB SCH ×2 (11:34→22:38)
--- NOTE | 2019-02-19 12:15 | CONS ---
Assessment/Plan Assessment/Plan Hospital Course (Demo Recall) SUBJECTIVE: The patient is awake, looks comfortable, no fevers MICROBIOLOGY: Blood culture grew coagulase-negative staph species. MRSA swab positive. Urine culture grew Proteus mirabilis and Klebsiella extended-spectrum beta-lactamase. DIAGNOSTICS: CT of the abdomen and pelvis yesterday revealed fecal filled colon, suggestive for constipation. No diverticulitis, no obstruction or i nflammation, no evidence of hydronephrosis, bilateral basilar atelectasis. ANTIMICROBIALS: 1. IV Vancomycin. 2. Meropenem. PHYSICAL EXAMINATION: GENERAL: This is a chronically ill-appearing, middle-aged man who is awake, in no distress. HEENT: Head atraumatic, normocephalic. Sclerae anicteric. Buccal mucosa pink. NECK: Supple. CHEST: Rise symmetrical. Breath sounds clear. HEART: S1, S2. ABDOMEN: Soft, bowel sounds present. EXTREMITIES: Right lower extremity dressing intact. Assessment: RLE cellulitis MDR UTI==> GNR/ESBL MRSA + nares Paraplegia N bladder Constipation Hx polysubstance abuse Bacteremia==> cw contaminant Abx: Vanco Merem Plan: Remains stable, continue abx, anticipate dc on oral Bactrim and Macrobid Consultation Date/Type/Reason Admit Date/Time Feb 10, 2019 at 23:43 Initial Consult Date Type of Consult id Date/Time of Note DATE: 02/19/19 TIME: 12:14 Exam/Review of Systems Exam Vitals Vital Signs Date Temp Pulse Resp B/P (MAP) Pulse Ox O2 O2 Flow FiO2 Time Delivery Rate 02/19/19 97.9 57 18 93/46 (62) 98 Room Air 08:00 Intake and Output 02/18/19 02/18/19 02/19/19 1515:00 23:00 07:00 IntakeIntake Total 740 ml 50 ml 300 ml OutputOutput Total 1600 ml 1 ml BalanceBalance -860 ml 50 ml 299 ml Results Result Diagram: 02/18/19 0428 02/19/19 1034 Results 24hrs Laboratory Tests Test 02/18/19 21:57 02/19/19 10:34 02/19/19 11:53 Vancomycin Level Trough 10.8 Sodium Level 141 Potassium Level 4.2 Chloride Level 105 Carbon Dioxide Level 30 Anion Gap 6 Blood Urea Nitrogen 20 Creatinine 0.76 Est Glomerular Filtrat > 60 Rate mL/min Glucose Level 84 Calcium Level 9.0 Lab Scanned Report REFERENCE LAB Medications Medication Current Medications IV Flush (NS 3 ml) 3 ml PER PROTOCOL IV Last administered on 02/19/19 08:27; Admin Dose 3 ML; Start 02/10/19 at 23:00 Ondansetron HCl (Zofran Inj) 4 mg Q6H PRN IV NAUSEA/VOMITING Last administered on 02/18/19 14:34; Admin Dose 4 MG; Start 02/10/19 at 23:00 Acetaminophen (Tylenol Tab) 650 mg Q6H PRN PO .PAIN 1-3 OR TEMP; Start 02/10/19 at 23:00 Docusate Sodium (Colace) 100 mg Q12H PRN PO .CONSTIPATION Last administered on 02/18/19 14:34; Admin Dose 100 MG; Start 02/10/19 at 23:00 Bisacodyl (Dulcolax) 5 mg DAILY PRN PO .CONSTIPATION Last administered on 02/18/19 14:34; Admin Dose 5 MG; Start 02/10/19 at 23:00 Enoxaparin Sodium (Lovenox) 40 mg DAILY SC Last administered on 02/19/19 08:23; Admin Dose 40 MG; Start 02/11/19 at 09:00 Morphine Sulfate (Ms Contin (Er)) 30 mg BID PO Last administered on 02/19/19 08:20; Admin Dose 30 MG; Start 02/10/19 at 23:30 Gabapentin (Neurontin) 600 mg BID PO Last administered on 02/19/19 08:19; Admin Dose 600 MG; Start 02/11/19 at 09:00 Acetaminophen/ Hydrocodone Bitart ([place] (10/325)) 1 tab Q6H PRN PO PAIN LEVEL 1-3 Last administered on 02/19/19 06:55; Admin Dose 1 TAB; Start 02/11/19 at 02:24 Miscellaneous Information (Pending [facility] Order For Wound Care) This patient oliveros... PRN PRN XX WOUND CARE; Start 02/11/19 at 05:00 Baclofen (Lioresal) 40 mg BID PO Last administered on 02/19/19 08:19; Admin Dose 40 MG; Start 02/11/19 at 21:00 Morphine Sulfate (morphine) 2 mg Q4H PRN IV SEVERE PAIN LEVEL 7-10 Last administered on 02/19/19 11:29; Admin Dose 2 MG; Start 02/11/19 at 13:00 Levothyroxine Sodium (Synthroid) 100 mcg DAILY@06 PO Last administered on 02/19/19 05:59; Admin Dose 100 MCG; Start 02/12/19 at 14:00 Polyethylene Glycol (Miralax) 17 gm DAILY PO Last administered on 02/18/19 08:45; Admin Dose 17 GM; Start 02/13/19 at 12:00 Meropenem/Sodium Chloride 50 ml @ 100 mls/hr Q8 IVPB Last administered on 02/19/19 05:59; Admin Dose 100 MLS/HR; Start 02/17/19 at 14:00 Vancomycin HCl (Vanco Iv Per Pharmacy) VANCOMYCIN PER PHARMACY PER PROTOCOL XX ; Start 02/17/19 at 09:30 Vancomycin HCl 250 ml @ 166.667 mls/hr Q12H IVPB Last administered on 02/19/19 11:34; Admin Dose 166.667 MLS/HR; Start 02/17/19 at 11:00 Mupirocin (Bactroban) 1 applic BID TOP Last administered on 02/19/19 10:43; Admin Dose 1 APPLIC; Start 02/18/19 at 16:00 Bisacodyl (Dulcolax Supp) 10 mg DAILY PRN [place] CONSTIPATION Last administered on 02/19/19 00:01; Admin Dose 10 MG; Start 02/19/19 at 00:00 RADHA HUTCHISON NP Feb 19, 2019 12:15
[2019-02-19 14:01] VITALS: BP 109/51; PULSE 57; RESP 18
[2019-02-19] MEDS ORDERED: NA PHOSPHATE/BIPHOS 133 ML ENEMA PR PRN (15:00)
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
[2019-02-19] MEDS: ONDANSETRON 4 MG INJ IV PRN (19:32)
[2019-02-19 19:56] VITALS: BP 114/40; PULSE 65; RESP 18
[2019-02-20] MEDS: morphine 2 MG INJ IV PRN ×5 (00:43→20:33)
[2019-02-20 02:30] VITALS: BP 120/60; PULSE 70; RESP 18
[2019-02-20] MEDS: ACETAMINOPHEN 325 MG TAB PO PRN (03:49)
[2019-02-20] MEDS: MEROPENEM 1 GM/50ML(PMX) 50 ML IVPB SCH ×3 (05:54→21:25)
[2019-02-20] MEDS: LEVOTHYROXINE 100 MCG TAB PO SCH (05:54)
[2019-02-20 08:00] VITALS: BP 94/48; PULSE 51; RESP 16
[2019-02-20] MEDS: morphine (ER) 30 MG TAB PO SCH ×2 (08:21→21:24)
[2019-02-20] MEDS: BACLOFEN 10 MG TAB PO SCH ×2 (08:21→21:25)
[2019-02-20] MEDS: GABAPENTIN 300 MG CAP PO SCH ×2 (08:22→21:25)
[2019-02-20] MEDS: BALSAM PERU/CASTOR OIL 60 GM TUBE TOP SCH ×2 (08:23→21:29)
[2019-02-20] MEDS: POLYETHYLENE GLYCOL 17 GM PACKET PO SCH (08:23)
[2019-02-20] MEDS: ENOXAPARIN 40 MG/0.4 ML SYG SC SCH (08:24)
[2019-02-20] MEDS: NACL 0.9% 3 ML SYG IV SCH (08:24)
[2019-02-20] MEDS: MUPIROCIN 2% 22 GM OINT TOP SCH ×2 (08:25→21:28)
[2019-02-20] MEDS: VANCOMYCIN 1 GM (PMX) 250 ML IVPB SCH (10:48)
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
--- NOTE | 2019-02-20 13:28 | CONS ---
Assessment/Plan Assessment/Plan Hospital Course (Demo Recall) SUBJECTIVE: All noted, no acute changes MICROBIOLOGY: Blood culture grew coagulase-negative staph species. MRSA swab positive. Urine culture grew Proteus mirabilis and Klebsiella extended-spectrum beta-lactamase. DIAGNOSTICS: CT of the abdomen and pelvis yesterday revealed fecal filled colon, suggestive for constipation. No diverticulitis, no obstruction or inflammation, no evidence of hydronephrosis, bilateral basilar atelectasis. ANTIMICROBIALS: 1. IV Vancomycin. 2. Meropenem. PHYSICAL EXAMINATION: GENERAL: This is a chronically ill-appearing, middle-aged man who is awake, in no distress. HEENT: Head atraumatic, normocephalic. Sclerae anicteric. Buccal mucosa pink. NECK: Supple. CHEST: Rise symmetrical. Breath sounds clear. HEART: S1, S2. ABDOMEN: Soft, bowel sounds present. EXTREMITIES: Right lower extremity dressing intact. Assessment: RLE cellulitis MDR UTI==> GNR/ESBL MRSA + nares Paraplegia N bladder Constipation Hx polysubstance abuse Bacteremia==> cw contaminant BUE numbness Abx: Vanco Merem Plan: Stable, neurology rec-s noted, pending C spine MRI, change Vanco to Doxycycline Consultation Date/Type/Reason Admit Date/Time Feb 10, 2019 at 23:43 Initial Consult Date Type of Consult id Requesting Provider: DMITRY CALHOUN MD Date/Time of Note DATE: 02/20/19 TIME: 13:25 Exam/Review of Systems Exam Vitals Vital Signs Date Temp Pulse Resp B/P (MAP) Pulse Ox O2 O2 Flow FiO2 Time Delivery Rate 02/20/19 97.9 51 16 94/48 (63) 98 08:00 02/20/19 Room Air 02:30 Intake and Output 02/19/19 02/19/19 02/20/19 1414:59 22:59 06:59 IntakeIntake Total 800 ml 350 ml 900 ml OutputOutput Total 2000 ml 1200 ml BalanceBalance -1200 ml 350 ml -300 ml Results Result Diagram: 02/18/19 0428 02/19/19 1034 Medications Medication Current Medications IV Flush (NS 3 ml) 3 ml PER PROTOCOL IV Last administered on 02/20/19at 08:24; Admin Dose 3 ML; Start 02/10/19 at 23:00 Ondansetron HCl (Zofran Inj) 4 mg Q6H PRN IV NAUSEA/VOMITING Last administered on 02/19/19 19:32; Admin Dose 4 MG; Start 02/10/19 at 23:00 Acetaminophen (Tylenol Tab) 650 mg Q6H PRN PO .PAIN 1-3 OR TEMP Last administered on 02/20/19 03:49; Admin Dose 650 MG; Start 02/10/19 at 23:00 Docusate Sodium (Colace) 100 mg Q12H PRN PO .CONSTIPATION Last administered on 02/18/19 14:34; Admin Dose 100 MG; Start 02/10/19 at 23:00 Bisacodyl (Dulcolax) 5 mg DAILY PRN PO .CONSTIPATION Last administered on 02/18/19 14:34; Admin Dose 5 MG; Start 02/10/19 at 23:00 Enoxaparin Sodium (Lovenox) 40 mg DAILY SC Last administered on 02/20/19 08:24; Admin Dose 40 MG; Start 02/11/19 at 09:00 Morphine Sulfate (Ms Contin (Er)) 30 mg BID PO Last administered on 02/20/19 08:21; Admin Dose 30 MG; Start 02/10/19 at 23:30 Gabapentin (Neurontin) 600 mg BID PO Last administered on 02/20/19 08:22; Admin Dose 600 MG; Start 02/11/19 at 09:00 Acetaminophen/ Hydrocodone Bitart ([place] (10/325)) 1 tab Q6H PRN PO PAIN LEVEL 1-3 Last administered on 02/19/19 22:38; Admin Dose 1 TAB; Start 02/11/19 at 02:24 Miscellaneous Information (Pending Santyl Order For Wound Care) This patient oliveros. .. PRN PRN XX WOUND CARE; Start 02/11/19 at 05:00 Baclofen (Lioresal) 40 mg BID PO Last administered on 02/20/19 08:21; Admin Dose 40 MG; Start 02/11/19 at 21:00 Morphine Sulfate (morphine) 2 mg Q4H PRN IV SEVERE PAIN LEVEL 7-10 Last administered on 02/20/19 11:37; Admin Dose 2 MG; Start 02/11/19 at 13:00 Levothyroxine Sodium (Synthroid) 100 mcg DAILY@06 PO Last administered on 02/20/19 05:54; Admin Dose 100 MCG; Start 02/12/19 at 14:00 Polyethylene Glycol (Miralax) 17 gm DAILY PO Last administered on 02/18/19at 08:45; Admin Dose 17 GM; Start 02/13/19 at 12:00 Meropenem/Sodium Chloride 50 ml @ 100 mls/hr Q8 IVPB Last administered on 02/20/19 05:54; Admin Dose 100 MLS/HR; Start 02/17/19 at 14:00 Vancomycin HCl (Vanco Iv Per Pharmacy) VANCOMYCIN PER PHARMACY PER PROTOCOL XX ; Start 02/17/19 at 09:30 Vancomycin HCl 250 ml @ 166.667 mls/hr Q12H IVPB Last administered on 02/20/19at 10:48; Admin Dose 166.667 MLS/HR; Start 02/17/19 at 11:00 Mupirocin (Bactroban) 1 applic BID TOP Last administered on 02/20/19 08:25; Admin Dose 1 APPLIC; Start 02/18/19 at 16:00 Bisacodyl (Dulcolax Supp) 10 mg DAILY PRN [place] CONSTIPATION Last administered on 02/19/19at 00:01; Admin Dose 10 MG; Start 02/19/19 at 00:00 Sodium Biphosphate/ Sodium Phosphate (Fleet Enema) 133 ml DAILY PRN [place] CONSTIP ATION; Start 02/19/19 at 15:00 RADHA HUTCHISON NP Feb 20, 2019 13:28
[2019-02-20 14:00] VITALS: BP 93/40; PULSE 50; RESP 18
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
[2019-02-20] MEDS: HYDROCODONE/APAP (10/325) TAB PO PRN (17:41)
[2019-02-20 19:55] VITALS: BP 101/54; PULSE 55; RESP 17
[2019-02-20] MEDS: DOXYCYCLINE 100 MG TAB PO SCH (21:24)
[2019-02-20] MEDS: ONDANSETRON 4 MG INJ IV PRN (23:11)
[2019-02-20] MEDS ORDERED: LORAZEPAM 2 MG INJ IV ONE (23:30)
[2019-02-21] VITALS: BP 108/56; PULSE 59; RESP 18
[2019-02-21] MEDS: morphine 2 MG INJ IV PRN ×5 (00:41→22:24)
[2019-02-21 02:23] VITALS: BP 104/53; PULSE 52; RESP 18
[2019-02-21] MEDS: MEROPENEM 1 GM/50ML(PMX) 50 ML IVPB SCH ×3 (06:06→22:24)
[2019-02-21] MEDS: LEVOTHYROXINE 100 MCG TAB PO SCH (06:06)
[2019-02-21 08:26] VITALS: BP 96/42; PULSE 59; RESP 18
[2019-02-21] MEDS: morphine (ER) 30 MG TAB PO SCH ×2 (08:35→21:12)
[2019-02-21] MEDS: GABAPENTIN 300 MG CAP PO SCH ×2 (08:35→21:12)
[2019-02-21] MEDS: BACLOFEN 10 MG TAB PO SCH ×2 (08:35→21:12)
[2019-02-21] MEDS: POLYETHYLENE GLYCOL 17 GM PACKET PO SCH (08:35)
[2019-02-21] MEDS: DOXYCYCLINE 100 MG TAB PO SCH ×2 (08:35→21:12)
[2019-02-21] MEDS: MUPIROCIN 2% 22 GM OINT TOP SCH ×2 (08:36→21:35)
[2019-02-21] MEDS: BALSAM PERU/CASTOR OIL 60 GM TUBE TOP SCH ×2 (08:37→21:35)
[2019-02-21] MEDS: ENOXAPARIN 40 MG/0.4 ML SYG SC SCH (08:40)
[2019-02-21] MEDS: HYDROCODONE/APAP (10/325) TAB PO PRN ×2 (13:49→23:57)
[2019-02-21 15:09] VITALS: BP 91/40; PULSE 50; RESP 18
--- NOTE | 2019-02-21 16:21 | PN ---
Date/Time of Note Date/Time of Note DATE: 02/21/19 TIME: 16:17 Assessment/Plan VTE Prophylaxis Risk score (from Ns)>0 risk: 6 SCD applied (from Nsg): Yes Pharmacological prophylaxis: heparin Lines/Catheters IV Catheter Type (from Nrsg): Peripheral IV Urinary Cath still in place: Yes Reason Cath still needed: urinary retention Assessment/Plan Problems: (1) Urinary tract infection due to ESBL Klebsiella Status: Acute Comment: On appropriate antibiotic therapy being guided by infectious disease (2) Urinary tract infection due to Proteus Status: Acute Comment: Appropriate antibiotic therapy (3) Complete paraplegia Status: Chronic Comment: Noted and stable. 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 (5) Polydrug abuse, continuous Status: Chronic Comment: Social work and case management have been involved. She did suggest usage of the pain medications as he is clearly at risk (6) Aortic stenosis due to bicuspid aortic valve Status: Chronic Comment: Noted. Careful regarding any drugs that can be afterload reducers (7) Aortic insufficiency due to bicuspid aortic valve Status: Chronic Comment: Noted. (8) Grade I diastolic dysfunction Status: Chronic Comment: Control blood pressure and pulse (9) Hypothyroidism Status: Chronic Comment: Maintain replacement therapy (10) Chronic pain syndrome Status: Chronic Comment: On chronic opiates, watch for constipation issues (11) Abnormal serum lipase level Status: Resolved Comment: Resolved Result Diagram: 02/18/19 0428 02/19/19 1034 Subjective 24 Hr Interval Summary Free Text/Dictation Patient with multiple complaints. Complains of intermittent shocklike sensations in the left axilla and left upper medial arm complains of some intermittent brief pains in the lower extremity and abdomen. Patient is advocating to receive lorazepam Constitutional: no complaints Respiratory: no complaints Cardiovascular: no complaints Gastrointestinal: no complaints Exam/Review of Systems Exam Vitals Vital Signs Date Temp Pulse Resp B/P (MAP) Pulse Ox O2 O2 Flow FiO2 Time Delivery Rate 02/21/19 97.8 50 18 91/40 (57) 95 15:09 02/21/19 Room Air 02:23 Intake and Output 02/20/19 02/20/19 02/21/19 1515:00 23:00 07:00 IntakeIntake Total 690 ml 530 ml 400 ml OutputOutput Total 1000 ml 1150 ml 1700 ml BalanceBalance -310 ml -620 ml -1300 ml Constitutional: alert, oriented Respiratory: clear to auscultation, normal air movement Cardiovascular: regular rate and rhythm, nl pulses Skin: other (Many tattoos) Medications Medication Current Medications IV Flush (NS 3 ml) 3 ml PER PROTOCOL IV Last administered on 02/20/19 08:24; Admin Dose 3 ML; Start 02/10/19 at 23:00 Ondansetron HCl (Zofran Inj) 4 mg Q6H PRN IV NAUSEA/VOMITING Last administered on 02/20/19 23:11; Admin Dose 4 MG; Start 02/10/19 at 23:00 Acetaminophen (Tylenol Tab) 650 mg Q6H PRN PO .PAIN 1-3 OR TEMP Last administered on 02/20/19 03:49; Admin Dose 650 MG; Start 02/10/19 at 23:00 Docusate Sodium (Colace) 100 mg Q12H PRN PO .CONSTIPATION Last administered on 02/18/19 14:34; Admin Dose 100 MG; Start 02/10/19 at 23:00 Bisacodyl (Dulcolax) 5 mg DAILY PRN PO .CONSTIPATION Last administered on 02/18/19 14:34; Admin Dose 5 MG; Start 02/10/19 at 23:00 Enoxaparin Sodium (Lovenox) 40 mg DAILY SC Last administered on 02/21/19 08:40; Admin Dose 40 MG; Start 02/11/19 at 09:00 Morphine Sulfate (Ms Contin (Er)) 30 mg BID PO Last administered on 02/21/19 08:35; Admin Dose 30 MG; Start 02/10/19 at 23:30 Gabapentin (Neurontin) 600 mg BID PO Last administered on 02/21/19 08:35; Admin Dose 600 MG; Start 02/11/19 at 09:00 Acetaminophen/ Hydrocodone Bitart ([place] ()) 1 tab Q6H PRN PO PAIN LEVEL 1-3 Last administered on 02/21/19 13:49; Admin Dose 1 TAB; Start 02/11/19 at 02:24 Miscellaneous Information (Pending Santyl Order For Wound Care) This patient oliveros... PRN PRN XX WOUND CARE; Start 02/11/19 at 05:00 Baclofen (Lioresal) 40 mg BID PO Last administered on 02/21/19 08:35; Admin Dose 40 MG; Start 02/11/19 at 21:00 Morphine Sulfate (morphine) 2 mg Q4H PRN IV SEVERE PAIN LEVEL 7-10 Last administered on 02/21/19 12:32; Admin Dose 2 MG; Start 02/11/19 at 13:00 Levothyroxine Sodium (Synthroid) 100 mcg DAILY@06 PO Last administered on 02/21/19 06:06; Admin Dose 100 MCG; Start 02/12/19 at 14:00 Polyethylene Glycol (Miralax) 17 gm DAILY PO Last administered on 02/18/19 08:45; Admin Dose 17 GM; Start 02/13/19 at 12:00 Meropenem/Sodium Chloride 50 ml @ 100 mls/hr Q8 IVPB Last administered on 02/21/19 13:49; Admin Dose 100 MLS/HR; Start 02/17/19 at 14:00 Mupirocin (Bactroban) 1 applic BID TOP Last administered on 02/21/19 08:36; Admin Dose 1 APPLIC; Start 02/18/19 at 16:00 Bisacodyl (Dulcolax Supp) [address] CONSTIPATION Last administered on 02/19/19 00:01; Admin Dose 10 MG; Start 02/19/19 at 00:00 Sodium Biphosphate/ Sodium Phosphate (Fleet Enema) [address] CONSTIPATION; Start 02/19/19 at 15:00 Doxycycline Hyclate (Vibramycin) 100 mg BID PO Last administered on 02/21/19 08:35; Admin Dose 100 MG; Start 02/20/19 at 21:00 CHIOMA OLIVA MD Feb 21, 2019 16:21
--- NOTE | 2019-02-21 16:29 | CONS ---
Assessment/Plan Assessment/Plan Hospital Course (Demo Recall) ID PROGRESS NOTE CURRENT ABX: DAY # =>Doxy + Merrem s/p Vanco IV 24H INTERVAL SUMMARY * Currently resting with eyes closed, no fevers, VSS, NAD -- patient with chronic pain issues DIAGNOSTIC IMAGING * CT of the abdomen and pelvis yesterday revealed fecal filled colon, suggestive for constipation. No diverticulitis, no obstruction or inflammation, no evidence of hydronephrosis, bilateral basilar atelectasis. MICRO * Blood culture grew coagulase-negative staph species. MRSA swab positive. Urine culture grew Proteus mirabilis and Klebsiella extended-spectrum beta- lactamase. * 02/15/19 URINE CULTURE Final Organism 1 K PNEUMO ESBL COLONY COUNT >100,000 CFU/ml . MULTI DRUG RESISTANT ORGANISM Organism 2 PROTEUS MIRABILIS COLONY COUNT >100,000 CFU/ml KLEB PNEUM P. MIRAB M.I.C. RX M.I.C. RX --------- --- --------- --- AMIKACIN 4 S <=2 S AMPICILLIN >=32 R CEFAZOLIN R CEFEPIME >=64 R 16 S CEFOTAXIME R R CIPROFLOXACIN >=4 R >=4 R GENTAMICIN >=16 R >=16 R LEVOFLOXACIN >=8 R >=8 R NITROFURANTOIN <=16 S 128 R TOBRAMYCIN >=16 R >=16 R TRIMETHOPRIM/SULFAMETHOXAZOLE >=320 R >=320 R PIPERACILLIN/TAZOBACTAM >=128 R <=4 S PHYSICAL EXAMINATION: GENERAL: VSS, NAD - HEENT: AT, NC, NECK: Supple, CHEST: Rise symmetrical HEART: Pulse RRR ABDOMEN: Soft EXTREMITIES: Warm, dry - Right lower extremity dressing intact. SKIN: No rash, no diaphoresis ID ASSESSMENT 49 yo M admit with: RLE cellulitis MDR UTI==> GNR/ESBL MRSA + nares Paraplegia N bladder Constipation Hx polysubstance abuse Bacteremia==> cw contaminant BUE numbness (+)MRSA Nares ABX ALLERGIES: None to ABX INVASIVES: PIV CURRENT ABX: DAY # => Doxy + Merrem s/p Vanco IV ID RECOMMENDATIONS/PLAN: 1. Complete 10 days for MDRO ESBL UTI Consultation Date/Type/Reason Admit Date/Time Feb 10, 2019 at 23:43 Initial Consult Date Requesting Provider: DMITRY CALHOUN MD Date/Time of Note DATE: 02/21/19 TIME: 16:29 Exam/Review of Systems Exam Vitals Vital Signs Date Temp Pulse Resp B/P (MAP) Pulse Ox O2 O2 Flow FiO2 Time Delivery Rate 02/21/19 97.8 50 18 91/40 (57) 95 15:09 02/21/19 Room Air 02:23 Intake and Output 02/20/19 02/20/19 02/21/19 1515:00 23:00 07:00 IntakeIntake Total 690 ml 530 ml 400 ml OutputOutput Total 1000 ml 1150 ml 1700 ml BalanceBalance -310 ml -620 ml -1300 ml Results Result Diagram: 02/18/19 0428 02/19/19 1034 Medications Medication Current Medications IV Flush (NS 3 ml) 3 ml PER PROTOCOL IV Last administered on 02/20/19 08:24; Admin Dose 3 ML; Start 02/10/19 at 23:00 Ondansetron HCl (Zofran Inj) 4 mg Q6H PRN IV NAUSEA/VOMITING Last administered on 02/20/19at 23:11; Admin Dose 4 MG; Start 02/10/19 at 23:00 Acetaminophen (Tylenol Tab) 650 mg Q6H PRN PO .PAIN 1-3 OR TEMP Last administered on 02/20/19 03:49; Admin Dose 650 MG; Start 02/10/19 at 23:00 Docusate Sodium (Colace) 100 mg Q12H PRN PO .CONSTIPATION Last administered on 02/18/19 14:34; Admin Dose 100 MG; Start 02/10/19 at 23:00 Bisacodyl (Dulcolax) 5 mg DAILY PRN PO .CONSTIPATION Last administered on 02/02 14:34; Admin Dose 5 MG; Start 02/10/19 at 23:00 Enoxaparin Sodium (Lovenox) 40 mg DAILY SC Last administered on 02/21/19 08:40; Admin Dose 40 MG; Start 02/11/19 at 09:00 Morphine Sulfate (Ms Contin (Er)) 30 mg BID PO Last administered on 02/21/19 08:35; Admin Dose 30 MG; Start 02/10/19 at 23:30 Gabapentin (Neurontin) 600 mg BID PO Last administered on 02/21/19 08:35; Admin Dose 600 MG; Start 02/11/19 at 09:00 Acetaminophen/ Hydrocodone Bitart ([place] ()) 1 tab Q6H PRN PO PAIN LEVEL 1-3 Last administered on 02/21/19 13:49; Admin Dose 1 TAB; Start 02/11/19 at 02:24 Miscellaneous Information (Pending Santyl Order For Wound Care) This patient oliveros... PRN PRN XX WOUND CARE; Start 02/11/19 at 05:00 Baclofen (Lioresal) 40 mg BID PO Last administered on 02/21/19 08:35; Admin Dose 40 MG; Start 02/11/19 at 21:00 Morphine Sulfate (morphine) 2 mg Q4H PRN IV SEVERE PAIN LEVEL 7-10 Last administered on 02/21/19 12:32; Admin Dose 2 MG; Start 02/11/19 at 13:00 Levothyroxine Sodium (Synthroid) 100 mcg DAILY@06 PO Last administered on 02/21/19 06:06; Admin Dose 100 MCG; Start 02/12/19 at 14:00 Polyethylene Glycol (Miralax) 17 gm DAILY PO Last administered on 02/18/19 08:45; Admin Dose 17 GM; Start 02/13/19 at 12:00 Meropenem/Sodium Chloride 50 ml @ 100 mls/hr Q8 IVPB Last administered on 02/21/19 13:49; Admin Dose 100 MLS/HR; Start 02/17/19 at 14:00; Stop 02/27/19 at 13:59 Mupirocin (Bactroban) 1 applic BID TOP Last administered on 02/21/19 08:36; Admin Dose 1 APPLIC; Start 02/18/19 at 16:00 Bisacodyl (Dulcolax Supp) 10 mg DAILY PRN [place] CONSTIPATION Last administered on 02/19/19 00:01; Admin Dose 10 MG; Start 02/19/19 at 00:00 Sodium Biphosphate/ Sodium Phosphate (Fleet Enema) 133 ml DAILY PRN [place] CONSTIPATION; Start 02/19/19 at 15:00 Doxycycline Hyclate (Vibramycin) 100 mg BID PO Last administered on 02/21/19 08:35; Admin Dose 100 MG; Start 02/20/19 at 21:00 KARLY DOLL NP Feb 21, 2019 16:29
[2019-02-21 20:00] VITALS: BP 99/38; PULSE 56; RESP 16
[2019-02-21] MEDS ORDERED: LORAZEPAM 1 MG TAB PO ONE (23:00)
[2019-02-22 02:00] VITALS: BP 98/41; PULSE 72; RESP 15
[2019-02-22] MEDS: morphine 2 MG INJ IV PRN ×6 (02:25→21:17)
[2019-02-22] MEDS: MEROPENEM 1 GM/50ML(PMX) 50 ML IVPB SCH ×3 (06:24→21:16)
[2019-02-22] MEDS: LEVOTHYROXINE 100 MCG TAB PO SCH (06:25)
[2019-02-22 08:00] VITALS: BP 89/45; PULSE 57; RESP 18
[2019-02-22] MEDS: ENOXAPARIN 40 MG/0.4 ML SYG SC SCH (09:06)
[2019-02-22] MEDS: GABAPENTIN 300 MG CAP PO SCH ×2 (09:07→20:11)
[2019-02-22] MEDS: POLYETHYLENE GLYCOL 17 GM PACKET PO SCH (09:07)
[2019-02-22] MEDS: BACLOFEN 10 MG TAB PO SCH ×2 (09:07→20:11)
[2019-02-22] MEDS: morphine (ER) 30 MG TAB PO SCH ×2 (09:07→20:11)
[2019-02-22] MEDS: DOXYCYCLINE 100 MG TAB PO SCH ×2 (09:07→20:11)
[2019-02-22] MEDS: BALSAM PERU/CASTOR OIL 60 GM TUBE TOP SCH ×2 (09:08→20:15)
[2019-02-22] MEDS: MUPIROCIN 2% 22 GM OINT TOP SCH ×2 (09:08→20:15)
--- NOTE | 2019-02-22 11:26 | PN ---
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 (2) Complete paraplegia Status: Chronic Comment: Stable, with allodynia, trial of gabapentin (3) Debility Status: Chronic Comment: Noted (4) Urinary tract infection due to ESBL Klebsiella Status: Acute Comment: As per ID (5) Urinary tract infection due to Proteus Status: Acute Comment: As per ID (6) Hepatitis C antibody positive in blood Status: Chronic Comment: Patient reports aware of this and told once it had a zero count. Recheck of viral RNA in progress (7) Hypothyroidism Status: Chronic Comment: On replacement Qualifiers: Hypothyroidism type: acquired Qualified Codes: E03.9 - Hypothyroidism, unspecified (8) Grade I diastolic dysfunction Status: Chronic Comment: Noted (9) Aortic stenosis due to bicuspid aortic valve Status: Chronic Comment: Noted (10) Aortic insufficiency due to bicuspid aortic valve Status: Chronic Comment: Noted (11) Prostatic hypertrophy Status: Chronic Comment: Noted Result Diagram: 02/18/19 0428 02/19/19 1034 Results 24hrs Laboratory Tests Test 02/21/19 19:40 Hepatitis B Surface Antigen NEGATIVE Hepatitis C Antibody REACTIVE H Subjective 24 Hr Interval Summary Constitutional: no complaints Respiratory: no complaints Cardiovascular: no complaints Gastrointestinal: no complaints Neurologic: other (allodynia on fingertips) Exam/Review of Systems Exam Vitals Vital Signs Date Temp Pulse Resp B/P (MAP) Pulse Ox O2 O2 Flow FiO2 Time Delivery Rate 02/22/19 97.6 57 18 89/45 (60) 99 Room Air 08:00 Intake and Output 02/21/19 02/21/19 02/22/19 1515:00 23:00 07:00 IntakeIntake Total 410 ml 930 ml OutputOutput Total 1300 ml 1150 ml BalanceBalance 410 ml -370 ml -1150 ml Constitutional: alert, oriented Neck: supple, non-tender Respiratory: clear to auscultation, normal air movement Cardiovascular: regular rate and rhythm, nl pulses Results Results 24hrs Laboratory Tests Test 02/21/19 19:40 Hepatitis B Surface Antigen NEGATIVE Hepatitis C Antibody REACTIVE H Medications Medication Current Medications IV Flush (NS 3 ml) 3 ml PER PROTOCOL IV Last administered on 02/20/19 08:24; Admin Dose 3 ML; Start 02/10/19 at 23:00 Ondansetron HCl (Zofran Inj) 4 mg Q6H PRN IV NAUSEA/VOMITING Last administered on 02/20/19 23:11; Admin Dose 4 MG; Start 02/10/19 at 23:00 Acetaminophen (Tylenol Tab) 650 mg Q6H PRN PO .PAIN 1-3 OR TEMP Last administered on 02/20/19 03:49; Admin Dose 650 MG; Start 02/10/19 at 23:00 Docusate Sodium (Colace) 100 mg Q12H PRN PO .CONSTIPATION Last administered on 02/18/19 14:34; Admin Dose 100 MG; Start 02/10/19 at 23:00 Bisacodyl (Dulcolax) 5 mg DAILY PRN PO .CONSTIPATION Last administered on 02/18/19 14:34; Admin Dose 5 MG; Start 02/10/19 at 23:00 Enoxaparin Sodium (Lovenox) 40 mg DAILY SC Last administered on 02/22/19 09:06; Admin Dose 40 MG; Start 02/11/19 at 09:00 Morphine Sulfate (Ms Contin (Er)) 30 mg BID PO Last administered on 02/22/19 09:07; Admin Dose 30 MG; Start 02/10/19 at 23:30 Gabapentin (Neurontin) 600 mg BID PO Last administered on 02/22/19 09:07; Admin Dose 600 MG; Start 02/11/19 at 09:00 Acetaminophen/ Hydrocodone Bitart ([place] (10/325)) 1 tab Q6H PRN PO PAIN LEVEL 1-3 Last administered on 02/21/19 23:57; Admin Dose 1 TAB; Start 02/11/19 at 02:24 Miscellaneous Information (Pending Santyl Order For Wound Care) This patient oliveros... PRN PRN XX WOUND CARE; Start 02/11/19 at 05:00 Baclofen (Lioresal) 40 mg BID PO Last administered on 02/22/19 09:07; Admin Dose 40 MG; Start 02/11/19 at 21:00 Morphine Sulfate (morphine) 2 mg Q4H PRN IV SEVERE PAIN LEVEL 7-10 Last administered on 02/22/19 10:38; Admin Dose 2 MG; Start 02/11/19 at 13:00 Levothyroxine Sodium (Synthroid) 100 mcg DAILY@06 PO Last administered on 02/22/19 06:25; Admin Dose 100 MCG; Start 02/12/19 at 14:00 Polyethylene Glycol (Miralax) 17 gm DAILY PO Last administered on 02/22/19 09:07; Admin Dose 17 GM; Start 02/13/19 at 12:00 Meropenem/Sodium Chloride 50 ml @ 100 mls/hr Q8 IVPB Last administered on 02/22/19 06:24; Admin Dose 100 MLS/HR; Start 02/17/19 at 14:00; Stop 02/27/19 at 13:59 Mupirocin (Bactroban) 1 applic BID TOP Last administered on 02/22/19 09:08; Admin Dose 1 APPLIC; Start 02/18/19 at 16:00; Stop 03/04/19 at 15:59 Bisacodyl (Dulcolax Supp) 10 mg DAILY PRN [place] CONSTIPATION Last administered on 02/19/19 00:01; Admin Dose 10 MG; Start 02/19/19 at 00:00 Sodium Biphosphate/ Sodium Phosphate (Fleet Enema) 133 ml DAILY PRN [place] CONSTIPATION; Start 02/19/19 at 15:00 Doxycycline Hyclate (Vibramycin) 100 mg BID PO Last administered on 02/22/19 09:07; Admin Dose 100 MG; Start 02/20/19 at 21:00; Stop 03/06/19 at 20:59 CHIOMA OLIVA MD Feb 22, 2019 11:26
[2019-02-22] MEDS: HYDROCODONE/APAP (10/325) TAB PO PRN ×2 (12:52→23:05)
[2019-02-22 14:00] VITALS: BP 119/57; RESP 18
[2019-02-22] MEDS ORDERED: LACTATED RINGER'S 500 ML IV ONE (14:30)
--- NOTE | 2019-02-22 16:16 | CONS ---
Assessment/Plan Assessment/Plan Hospital Course (Demo Recall) ID PROGRESS NOTE CURRENT ABX: DAY # =>Doxy + Merrem s/p Vanco IV 24H INTERVAL SUMMARY * CLINICALLY STATUS QUO -- Paraplegia w/chronic pain, neuropathic pain issues -- fevers, VSS, NAD DIAGNOSTIC IMAGING * CT of the abdomen and pelvis yesterday revealed fecal filled colon, suggestive for constipation. No diverticulitis, no obstruction or inflammation, no evidence of hydronephrosis, bilateral basilar atelectasis. MICRO * Blood culture grew coagulase-negative staph species. MRSA swab positive. Urine culture grew Proteus mirabilis and Klebsiella extended-spectrum beta- lactamase. * 02/15/19 URINE CULTURE Final Organism 1 K PNEUMO ESBL COLONY COUNT >100,000 CFU/ml . MULTI DRUG RESISTANT ORGANISM Organism 2 PROTEUS MIRABILIS COLONY COUNT >100,000 CFU/ml KLEB PNEUM P. MIRAB M.I.C. RX M.I.C. RX --------- --- --------- --- AMIKACIN 4 S <=2 S AMPICILLIN >=32 R CEFAZOLIN R CEFEPIME >=64 R 16 S CEFOTAXIME R R CIPROFLOXACIN >=4 R >=4 R GENTAMICIN >=16 R >=16 R LEVOFLOXACIN >=8 R >=8 R NITROFURANTOIN <=16 S 128 R TOBRAMYCIN >=16 R >=16 R TRIMETHOPRIM/SULFAMETHOXAZOLE >=320 R >=320 R PIPERACILLIN/TAZOBACTAM >=128 R <=4 S PHYSICAL EXAMINATION: GENERAL: VSS, NAD - HEENT: AT, NC, NECK: Supple, CHEST: Rise symmetrical HEART: Pulse RRR ABDOMEN: Soft EXTREMITIES: Warm, dry - Right lower extremity dressing intact. SKIN: No rash, no diaphoresis ID ASSESSMENT 49 yo M admit with: RLE cellulitis MDR UTI==> GNR/ESBL MRSA + nares Paraplegia N bladder Constipation Hx polysubstance abuse Bacteremia==> cw contaminant BUE numbness (+)MRSA Nares ABX ALLERGIES: None to ABX INVASIVES: PIV CURRENT ABX: DAY # => Doxy + Merrem s/p Vanco IV ID RECOMMENDATIONS/PLAN: 1. Completing ABX course of 10 days for MDRO ESBL UTI + cellulitis . Consultation Date/Type/Reason Admit Date/Time Feb 10, 2019 at 23:43 Initial Consult Date Requesting Provider: DMITRY CALHOUN MD Date/Time of Note DATE: 02/22/19 TIME: 16:14 Exam/Review of Systems Exam Vitals Vital Signs Date Temp Pulse Resp B/P (MAP) Pulse Ox O2 O2 Flow FiO2 Time Delivery Rate 02/22/19 98.1 18 119/57 98 14:00 (77) 02/22/19 57 Room Air 08:00 Intake and Output 02/21/19 02/21/19 02/22/19 1515:00 23:00 07:00 IntakeIntake Total 410 ml 930 ml OutputOutput Total 1300 ml 1150 ml BalanceBalance 410 ml -370 ml -1150 ml Results Result Diagram: 02/18/19 0428 02/19/19 1034 Results 24hrs Laboratory Tests Test 02/21/19 19:40 Rapid Plasma Reagin NONREACTIVE Hepatitis B Surface Antigen NEGATIVE Hepatitis C Antibody REACTIVE H Medications Medication Current Medications IV Flush (NS 3 ml) 3 ml PER PROTOCOL IV Last administered on 02/20/19at 08:24; Admin Dose 3 ML; Start 02/10/19 at 23:00 Ondansetron HCl (Zofran Inj) 4 mg Q6H PRN IV NAUSEA/VOMITING Last administered on 02/20/19at 23:11; Admin Dose 4 MG; Start 02/10/19 at 23:00 Acetaminophen (Tylenol Tab) 650 mg Q6H PRN PO .PAIN 1-3 OR TEMP Last administered on 02/20/19 03:49; Admin Dose 650 MG; Start 02/10/19 at 23:00 Docusate Sodium (Colace) 100 mg Q12H PRN PO .CONSTIPATION Last administered on 02/18/19 14:34; Admin Dose 100 MG; Start 02/10/19 at 23:00 Bisacodyl (Dulcolax) 5 mg DAILY PRN PO .CONSTIPATION Last administered on 02/18/19 14:34; Admin Dose 5 MG; Start 02/10/19 at 23:00 Enoxaparin Sodium (Lovenox) 40 mg DAILY SC Last administered on 02/22/19at 09:06; Admin Dose 40 MG; Start 02/11/19 at 09:00 Morphine Sulfate (Ms Contin (Er)) 30 mg BID PO Last administered on 02/22/19 09:07; Admin Dose 30 MG; Start 02/10/19 at 23:30 Gabapentin (Neurontin) 600 mg BID PO Last administered on 02/22/19 09:07; Admin Dose 600 MG; Start 02/11/19 at 09:00 Acetaminophen/ Hydrocodone Bitart ([place] (10)) 1 tab Q6H PRN PO PAIN LEVEL 1-3 Last administered on 02/22/19 12:52; Admin Dose 1 TAB; Start 02/11/19 at 02:24 Miscellaneous Information (Pending Santyl Order For Wound Care) This patient oliveros... PRN PRN XX WOUND CARE; Start 02/11/19 at 05:00 Baclofen (Lioresal) 40 mg BID PO Last administered on 02/22/19 09:07; Admin Dose 40 MG; Start 02/11/19 at 21:00 Morphine Sulfate (morphine) 2 mg Q4H PRN IV SEVERE PAIN LEVEL 7-10 Last administered on 02/22/19 10:38; Admin Dose 2 MG; Start 02/11/19 at 13:00 Levothyroxine Sodium (Synthroid) 100 mcg DAILY@06 PO Last administered on 02/22/19 06:25; Admin Dose 100 MCG; Start 02/12/19 at 14:00 Polyethylene Glycol (Miralax) 17 gm DAILY PO Last administered on 02/22/19 09:07; Admin Dose 17 GM; Start 02/13/19 at 12:00 Meropenem/Sodium Chloride 50 ml @ 100 mls/hr Q8 IVPB Last administered on 02/22/19 13:01; Admin Dose 100 MLS/HR; Start 02/17/19 at 14:00; Stop 02/27/19 at 13:59 Mupirocin (Bactroban) 1 applic BID TOP Last administered on 02/22/19 09:08; Admin Dose 1 APPLIC; Start 02/18/19 at 16:00; Stop 03/04/19 at 15:59 Bisacodyl (Dulcolax Supp) 10 mg DAILY PRN [place] CONSTIPATION Last administered on 02/19/19 00:01; Admin Dose 10 MG; Start 02/19/19 at 00:00 Sodium Biphosphate/ Sodium Phosphate (Fleet Enema) 133 ml DAILY PRN [place] ONSTIPATION; Start 02/19/19 at 15:00 Doxycycline Hyclate (Vibramycin) 100 mg BID PO Last administered on 02/22/19at 09:07; Admin Dose 100 MG; Start 02/20/19 at 21:00; Stop 03/06/19 at 20:59 KARLY DOLL NP Feb 22, 2019 16:16
[2019-02-22 19:50] VITALS: BP 98/36; PULSE 53; RESP 18
[2019-02-22 21:31] VITALS: BP 101/34; PULSE 55
[2019-02-23] MEDS: ONDANSETRON 4 MG INJ IV PRN (00:54)
[2019-02-23] MEDS: morphine 2 MG INJ IV PRN ×4 (01:51→20:09)
[2019-02-23 02:18] VITALS: BP 105/32; PULSE 50; RESP 18
[2019-02-23] MEDS: LEVOTHYROXINE 100 MCG TAB PO SCH (05:54)
[2019-02-23] MEDS: MEROPENEM 1 GM/50ML(PMX) 50 ML IVPB SCH ×3 (05:54→21:19)
[2019-02-23 08:05] VITALS: RESP 17
[2019-02-23 08:14] VITALS: BP 91/34; PULSE 60; RESP 17
[2019-02-23] MEDS: POLYETHYLENE GLYCOL 17 GM PACKET PO SCH ×2 (08:42→17:16)
[2019-02-23] MEDS: ENOXAPARIN 40 MG/0.4 ML SYG SC SCH (08:46)
[2019-02-23] MEDS: BACLOFEN 10 MG TAB PO SCH ×2 (08:48→20:10)
[2019-02-23] MEDS: DOXYCYCLINE 100 MG TAB PO SCH ×2 (08:48→20:11)
[2019-02-23] MEDS: morphine (ER) 30 MG TAB PO SCH ×2 (08:49→21:19)
[2019-02-23] MEDS: GABAPENTIN 300 MG CAP PO SCH ×2 (08:49→20:11)
[2019-02-23] MEDS: MUPIROCIN 2% 22 GM OINT TOP SCH ×2 (08:50→20:18)
[2019-02-23] MEDS: BALSAM PERU/CASTOR OIL 60 GM TUBE TOP SCH ×2 (08:50→20:18)
--- NOTE | 2019-02-23 10:41 | CONS ---
Assessment/Plan Assessment/Plan Assessment/Plan (Recall) 49 M c/ reported lower C spine trauma c/b fracture..s/p surgery > 2 years ago...who is admitted for R leg swelling and redness.. The patient now notes 3 days of worsening numbness in his hands and legs, for which neurology is consulted.. An acute exacerbation of his chronic cervical spine pathology is possible.. CT C spine is without evidence of acute fracture, but is technically limited MRI C spine is contraindicated.. P: Pain control and other medical management per primary Consider EMG/NCS for further characterization, which may be done on a outpatient basis PT/OT as tolerated Will sign off for now; please call w/ ?s Consultation Date/Type/Reason Admit Date/Time Feb 10, 2019 at 23:43 Type of Consult Neurology Reason for Consultation 4 limb numbness Requesting Provider: DMITRY CALHOUN MD Date/Time of Note DATE: 02/23/19 TIME: 10:39 24 HR Interval Summary Free Text/Dictation s/p CT c spine Exam/Review of Systems Exam Vitals Vital Signs Date Temp Pulse Resp B/P (MAP) Pulse Ox O2 O2 Flow FiO2 Time Delivery Rate 02/23/19 60 17 91/34 (53) 08:14 02/23/19 97.8 95 08:05 02/23/19 Room Air 02:18 Intake and Output 02/22/19 02/22/19 02/23/19 1515:00 23:00 07:00 IntakeIntake Total 600 ml 530 ml 708 ml OutputOutput Total 650 ml 1600 ml BalanceBalance 600 ml -120 ml -892 ml Results Result Diagram: 02/19/19 1034 Medications Medication Current Medications IV Flush (NS 3 ml) 3 ml PER PROTOCOL IV Last administered on 02/20/19at 08:24; Admin Dose 3 ML; Start 02/10/19 at 23:00 Ondansetron HCl (Zofran Inj) 4 mg Q6H PRN IV NAUSEA/VOMITING Last administered on 02/23/19at 00:54; Admin Dose 4 MG; Start 02/10/19 at 23:00 Acetaminophen (Tylenol Tab) 650 mg Q6H PRN PO .PAIN 1-3 OR TEMP Last administered on 02/20/19at 03:49; Admin Dose 650 MG; Start 02/10/19 at 23:00 Docusate Sodium (Colace) 100 mg Q12H PRN PO .CONSTIPATION Last administered on 02/18/19 14:34; Admin Dose 100 MG; Start 02/10/19 at 23:00 Bisacodyl (Dulcolax) 5 mg DAILY PRN PO .CONSTIPATION Last administered on 02/18/19 14:34; Admin Dose 5 MG; Start 02/10/19 at 23:00 Enoxaparin Sodium (Lovenox) 40 mg DAILY SC Last administered on 02/23/19 08:46; Admin Dose 40 MG; Start 02/11/19 at 09:00 Morphine Sulfate (Ms Contin (Er)) 30 mg BID PO Last administered on 02/23/19 08:49; Admin Dose 30 MG; Start 02/10/19 at 23:30 Gabapentin (Neurontin) 600 mg BID PO Last administered on 02/23/19 08:49; Admin Dose 600 MG; Start 02/11/19 at 09:00 Acetaminophen/ Hydrocodone Bitart ([place] ()) 1 tab Q6H PRN PO PAIN LEVEL 1-3 Last administered on 02/22/19 23:05; Admin Dose 1 TAB; Start 02/11/19 at 02:24 Miscellaneous Information (Pending Santyl Order For Wound Care) This patient oliveros... PRN PRN XX WOUND CARE; Start 02/11/19 at 05:00 Baclofen (Lioresal) 40 mg BID PO Last administered on 02/23/19 08:48; Admin Dose 40 MG; Start 02/11/19 at 21:00 Morphine Sulfate (morphine) 2 mg Q4H PRN IV SEVERE PAIN LEVEL 7-10 Last administered on 02/23/19 05:56; Admin Dose 2 MG; Start 02/11/19 at 13:00 Levothyroxine Sodium (Synthroid) 100 mcg DAILY@06 PO Last administered on 02/23/19 05:54; Admin Dose 100 MCG; Start 02/12/19 at 14:00 Polyethylene Glycol (Miralax) 17 gm DAILY PO Last administered on 02/22/19 09:07; Admin Dose 17 GM; Start 02/13/19 at 12:00 Meropenem/Sodium Chloride 50 ml @ 100 mls/hr Q8 IVPB Last administered on 7/22/19at 05:54; Admin Dose 100 MLS/HR; Start 02/17/19 at 14:00; Stop 02/27/19 at 13:59 Mupirocin (Bactroban) 1 applic BID TOP Last administered on 02/23/19at 08:50; Admin Dose 1 APPLIC; Start 02/18/19 at 16:00; Stop 03/04/19 at 15:59 Bisacodyl (Dulcolax Supp) 10 mg DAILY PRN [place] CONSTIPATION Last administered on 02/19/19at 00:01; Admin Dose 10 MG; Start 02/19/19 at 00:00 Sodium Biphosphate/ Sodium Phosphate (Fleet Enema) 133 ml DAILY PRN [place] CONSTIPATION; Start 02/19/19 at 15:00 Doxycycline Hyclate (Vibramycin) 100 mg BID PO Last administered on 02/23/19at 08:48; Admin Dose 100 MG; Start 02/20/19 at 21:00; Stop 03/06/19 at 20:59 MICHAELLE TAN Feb 23, 2019 10:41
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
[2019-02-23 14:08] VITALS: BP 95/38; PULSE 62; RESP 18
--- NOTE | 2019-02-23 15:01 | CONS ---
Assessment/Plan Assessment/Plan Hospital Course (Demo Recall) SUBJECTIVE: All noted, no acute changes MICROBIOLOGY: Blood culture grew coagulase-negative staph species. MRSA swab positive. Urine culture grew Proteus mirabilis and Klebsiella extended-spectrum beta-lactamase. DIAGNOSTICS: CT of the abdomen and pelvis yesterday revealed fecal filled colon, suggestive for constipation. No diverticulitis, no obstruction or inflammation, no evidence of hydronephrosis, bilateral basilar atelectasis. ANTIMICROBIALS: 1. Doxycycline. 2. Meropenem. PHYSICAL EXAMINATION: GENERAL: This is a chronically ill-appearing, middle-aged man who is awake, in no distress. HEENT: Head atraumatic, normocephalic. Sclerae anicteric. Buccal mucosa pink. NECK: Supple. CHEST: Rise symmetrical. Breath sounds clear. HEART: S1, S2. ABDOMEN: Soft, bowel sounds present. EXTREMITIES: Right lower extremity dressing intact. Assessment: RLE cellulitis MDR UTI==> GNR/ESBL MRSA + nares Paraplegia N bladder Constipation Hx polysubstance abuse Bacteremia==> cw contaminant BUE numbness Plan: Stable, completing abx, last dose tomorrow Consultation Date/Type/Reason Admit Date/Time Feb 10, 2019 at 23:43 Initial Consult Date Type of Consult id Requesting Provider: DMITRY CALHOUN MD Date/Time of Note DATE: 02/23/19 TIME: 14:59 Exam/Review of Systems Exam Vitals Vital Signs Date Temp Pulse Resp B/P (MAP) Pulse Ox O2 O2 Flow FiO2 Time Delivery Rate 02/23/19 98.0 62 18 95/38 (57) 95 14:08 02/23/19 Room Air 02:18 Intake and Output 02/22/19 02/22/19 02/23/19 1515:00 23:00 07:00 IntakeIntake Total 600 ml 530 ml 708 ml OutputOutput Total 650 ml 1600 ml BalanceBalance 600 ml -120 ml -892 ml Results Result Diagram: 02/19/19 1034 Medications Medication Current Medications IV Flush (NS 3 ml) 3 ml PER PROTOCOL IV Last administered on 02/20/19at 08:24; Admin Dose 3 ML; Start 02/10/19 at 23:00 Ondansetron HCl (Zofran Inj) 4 mg Q6H PRN IV NAUSEA/VOMITING Last administered on 02/23/19 00:54; Admin Dose 4 MG; Start 02/10/19 at 23:00 Acetaminophen (Tylenol Tab) 650 mg Q6H PRN PO .PAIN 1-3 OR TEMP Last administered on 02/20/19 03:49; Admin Dose 650 MG; Start 02/10/19 at 23:00 Docusate Sodium (Colace) 100 mg Q12H PRN PO .CONSTIPATION Last administered on 02/18/19 14:34; Admin Dose 100 MG; Start 02/10/19 at 23:00 Bisacodyl (Dulcolax) 5 mg DAILY PRN PO .CONSTIPATION Last administered on 02/18/19 14:34; Admin Dose 5 MG; Start 02/10/19 at 23:00 Enoxaparin Sodium (Lovenox) 40 mg DAILY SC Last administered on 02/23/19 08:46; Admin Dose 40 MG; Start 02/11/19 at 09:00 Morphine Sulfate (Ms Contin (Er)) 30 mg BID PO Last administered on 02/23/19 08:49; Admin Dose 30 MG; Start 02/10/19 at 23:30 Gabapentin (Neurontin) 600 mg BID PO Last administered on 02/23/19 08:49; Admin Dose 600 MG; Start 02/11/19 at 09:00 Acetaminophen/ Hydrocodone Bitart ([place] (10/325)) 1 tab Q6H PRN PO PAIN LEVEL 1-3 Last administered on 02/22/19 23:05; Admin Dose 1 TAB; Start 02/11/19 at 02:24 Miscellaneous Information (Pending [facility] Order For Wound Care) This patient oliveros... PRN PRN XX WOUND CARE; Start 02/11/19 at 05:00 Baclofen (Lioresal) 40 mg BID PO Last administered on 02/23/19 08:48; Admin Dose 40 MG; Start 02/11/19 at 21:00 Morphine Sulfate (morphine) 2 mg Q4H PRN IV SEVERE PAIN LEVEL 7-10 Last administered on 02/23/19 12:51; Admin Dose 2 MG; Start 02/11/19 at 13:00 Levothyroxine Sodium (Synthroid) 100 mcg DAILY@06 PO Last administered on 02/23/19 05:54; Admin Dose 100 MCG; Start 02/12/19 at 14:00 Polyethylene Glycol (Miralax) 17 gm DAILY PO Last administered on 02/22/19at 09:07; Admin Dose 17 GM; Start 02/13/19 at 12:00 Meropenem/Sodium Chloride 50 ml @ 100 mls/hr Q8 IVPB Last administered on at 13:04; Admin Dose 100 MLS/HR; Start 02/17/19 at 14:00; Stop 02/27/19 at 13:59 Mupirocin (Bactroban) 1 applic BID TOP Last administered on 02/23/19at 08:50; Admin Dose 1 APPLIC; Start 02/18/19 at 16:00; Stop 03/04/19 at 15:59 Bisacodyl (Dulcolax Supp) 10 mg DAILY PRN [place] CONSTIPATION Last administered on 02/19/19at 00:01; Admin Dose 10 MG; Start 02/19/19 at 00:00 Sodium Biphosphate/ Sodium Phosphate (Fleet Enema) 133 ml DAILY PRN [place] CONSTIPATION; Start 02/19/19 at 15:00 Doxycycline Hyclate (Vibramycin) 100 mg BID PO Last administered on 02/23/19at 08:48; Admin Dose 100 MG; Start 02/20/19 at 21:00; Stop 03/06/19 at 20:59 RADHA HUTCHISON NP Feb 23, 2019 15:01
[2019-02-23] MEDS: HYDROCODONE/APAP (10/325) TAB PO PRN ×2 (15:50→23:38)
[2019-02-23 20:00] VITALS: BP 105/37; PULSE 57; RESP 19
[2019-02-23] MEDS ORDERED: DIAZEPAM 2 MG TAB PO ONE (23:30)
[2019-02-24] MEDS: morphine 2 MG INJ IV PRN ×5 (00:51→22:07)
[2019-02-24 02:00] VITALS: BP 107/42; PULSE 61; RESP 17
[2019-02-24] MEDS: MEROPENEM 1 GM/50ML(PMX) 50 ML IVPB SCH (06:03)
[2019-02-24] MEDS: LEVOTHYROXINE 100 MCG TAB PO SCH (06:03)
[2019-02-24] MEDS: HYDROCODONE/APAP (10/325) TAB PO PRN (07:28)
[2019-02-24 08:06] VITALS: BP 109/40; PULSE 60; RESP 18
[2019-02-24] MEDS: POLYETHYLENE GLYCOL 17 GM PACKET PO SCH (09:21)
[2019-02-24] MEDS: ENOXAPARIN 40 MG/0.4 ML SYG SC SCH (09:21)
[2019-02-24] MEDS: BALSAM PERU/CASTOR OIL 60 GM TUBE TOP SCH ×2 (09:22→20:30)
[2019-02-24] MEDS: BACLOFEN 10 MG TAB PO SCH ×2 (09:22→20:29)
[2019-02-24] MEDS: MUPIROCIN 2% 22 GM OINT TOP SCH ×2 (09:22→20:30)
[2019-02-24] MEDS: DOXYCYCLINE 100 MG TAB PO SCH (09:23)
[2019-02-24] MEDS: morphine (ER) 30 MG TAB PO SCH ×2 (09:23→20:29)
[2019-02-24] MEDS: GABAPENTIN 300 MG CAP PO SCH ×2 (09:23→20:29)
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
--- NOTE | 2019-02-24 13:14 | CONS ---
Assessment/Plan Assessment/Plan Hospital Course (Demo Recall) SUBJECTIVE: Alert, feels ok, no fevers MICROBIOLOGY: Blood culture grew coagulase-negative staph species. MRSA swab positive. Urine culture grew Proteus mirabilis and Klebsiella extended-spectrum beta-lactamase. DIAGNOSTICS: CT of the abdomen and pelvis yesterday revealed fecal filled colon, suggestive for constipation. No diverticulitis, no obstruction or inflammation, no evidence of hydronephrosis, bilateral basilar atelectasis. ANTIMICROBIALS: 1. Doxycycline. 2. Meropenem. PHYSICAL EXAMINATION: GENERAL: This is a chronically ill-appearing, middle-aged man who is awake, in no distress. HEENT: Head atraumatic, normocephalic. Sclerae anicteric. Buccal mucosa pink. NECK: Supple. CHEST: Rise symmetrical. Breath sounds clear. HEART: S1, S2. ABDOMEN: Soft, bowel sounds present. EXTREMITIES: Right lower extremity dressing intact. Assessment: RLE cellulitis MDR UTI==> GNR/ESBL MRSA + nares Paraplegia N bladder Constipation Hx polysubstance abuse Bacteremia==> cw contaminant BUE numbness Plan: Remains stable, dc abx and observe Consultation Date/Type/Reason Admit Date/Time Feb 10, 2019 at 23:43 Initial Consult Date Type of Consult id Requesting Provider: DMITRY CALHOUN MD Date/Time of Note DATE: 02/24/19 TIME: 13:14 Exam/Review of Systems Exam Vitals Vital Signs Date Temp Pulse Resp B/P (MAP) Pulse Ox O2 O2 Flow FiO2 Time Delivery Rate 02/24/19 97.9 60 18 109/40 97 08:06 (63) 02/23/19 Room Air 02:18 Intake and Output 02/23/19 02/23/19 02/24/19 1515:00 23:00 07:00 IntakeIntake Total 50 ml 940 ml 50 ml OutputOutput Total 1800 ml BalanceBalance -1750 ml 940 ml 50 ml Medications Medication Current Medications IV Flush (NS 3 ml) 3 ml PER PROTOCOL IV Last administered on 02/20/19at 08:24; Admin Dose 3 ML; Start 02/10/19 at 23:00 Ondansetron HCl (Zofran Inj) 4 mg Q6H PRN IV NAUSEA/VOMITING Last administered on 02/23/19at 00:54; Admin Dose 4 MG; Start 02/10/19 at 23:00 Acetaminophen (Tylenol Tab) 650 mg Q6H PRN PO .PAIN 1-3 OR TEMP Last administered on 02/20/19 03:49; Admin Dose 650 MG; Start 02/10/19 at 23:00 Docusate Sodium (Colace) 100 mg Q12H PRN PO .CONSTIPATION Last administered on 02/18/19 14:34; Admin Dose 100 MG; Start 02/10/19 at 23:00 Bisacodyl (Dulcolax) 5 mg DAILY PRN PO .CONSTIPATION Last administered on 02/18/19 14:34; Admin Dose 5 MG; Start 02/10/19 at 23:00 Enoxaparin Sodium (Lovenox) 40 mg DAILY SC Last administered on 02/24/19 09:21; Admin Dose 40 MG; Start 02/11/19 at 09:00 Morphine Sulfate (Ms Contin (Er)) 30 mg BID PO Last administered on 02/24/19 09:23; Admin Dose 30 MG; Start 02/10/19 at 23:30 Gabapentin (Neurontin) 600 mg BID PO Last administered on 02/24/19 09:23; Admin Dose 600 MG; Start 02/11/19 at 09:00 Acetaminophen/ Hydrocodone Bitart ([place] ()) 1 tab Q6H PRN PO PAIN LEVEL 1-3 Last administered on 02/24/19 07:28; Admin Dose 1 TAB; Start 02/11/19 at 02:24 Miscellaneous Information (Pending [facility] Order For Wound Care) This patient oliveros... PRN PRN XX WOUND CARE; Start 02/11/19 at 05:00 Baclofen (Lioresal) 40 mg BID PO Last administered on 02/24/19 09:22; Admin Dose 40 MG; Start 02/11/19 at 21:00 Morphine Sulfate (morphine) 2 mg Q4H PRN IV SEVERE PAIN LEVEL 7-10 Last administered on 02/24/19 11:29; Admin Dose 2 MG; Start 02/11/19 at 13:00 Levothyroxine Sodium (Synthroid) 100 mcg DAILY@06 PO Last administered on 02/24/19 06:03; Admin Dose 100 MCG; Start 02/12/19 at 14:00 Polyethylene Glycol (Miralax) 17 gm DAILY PO Last administered on 02/24/19 09:21; Admin Dose 17 GM; Start 02/13/19 at 12:00 Meropenem/Sodium Chloride 50 ml @ 100 mls/hr Q8 IVPB Last administered on 02/24/19at 06:03; Admin Dose 100 MLS/HR; Start 02/17/19 at 14:00; Stop 02/27/19 at 13:59 Mupirocin (Bactroban) 1 applic BID TOP Last administered on 02/24/19at 09:22; Admin Dose 1 APPLIC; Start 02/18/19 at 16:00; Stop 03/04/19 at 15:59 Bisacodyl (Dulcolax Supp) 10 mg DAILY PRN [place] CONSTIPATION Last administered on 02/19/19at 00:01; Admin Dose 10 MG; Start 02/19/19 at 00:00 Sodium Biphosphate/ Sodium Phosphate (Fleet Enema) 133 ml DAILY PRN [place] CONSTIPATION; Start 02/19/19 at 15:00 Doxycycline Hyclate (Vibramycin) 100 mg BID PO Last administered on 02/24/19at 09:23; Admin Dose 100 MG; Start 02/20/19 at 21:00; Stop 03/06/19 at 20:59 RADHA HUTCHISON NP Feb 24, 2019 13:14
[2019-02-24 13:56] VITALS: BP 87/36; PULSE 60; RESP 16
[2019-02-24 14:12] VITALS: BP 91/32; PULSE 62
[2019-02-24 14:23] VITALS: BP 90/36; PULSE 60; RESP 15
[2019-02-24] MEDS: NACL 0.9% 3 ML SYG IV SCH (16:48)
[2019-02-24 20:02] VITALS: BP 101/48; PULSE 53; RESP 18
[2019-02-24] MEDS: BISACODYL (EC) 5 MG TAB PO PRN (22:07)
[2019-02-25] MEDS: HYDROCODONE/APAP (10/325) TAB PO PRN (00:32)
[2019-02-25 02:00] VITALS: BP 105/52; PULSE 58; RESP 18
[2019-02-25] MEDS: morphine 2 MG INJ IV PRN ×4 (05:17→21:39)
[2019-02-25] MEDS: LEVOTHYROXINE 100 MCG TAB PO SCH (05:17)
[2019-02-25 07:45] VITALS: BP 119/55; PULSE 50; RESP 18
[2019-02-25] MEDS: GABAPENTIN 300 MG CAP PO SCH ×2 (08:41→20:15)
[2019-02-25] MEDS: morphine (ER) 30 MG TAB PO SCH ×2 (08:41→20:17)
[2019-02-25] MEDS: BACLOFEN 10 MG TAB PO SCH ×2 (08:41→20:15)
[2019-02-25] MEDS: POLYETHYLENE GLYCOL 17 GM PACKET PO SCH ×2 (08:45→18:16)
[2019-02-25] MEDS: DOCUSATE SODIUM 100 MG CAP PO PRN (08:45)
[2019-02-25] MEDS: ENOXAPARIN 40 MG/0.4 ML SYG SC SCH (08:45)
[2019-02-25] MEDS: BALSAM PERU/CASTOR OIL 60 GM TUBE TOP SCH ×2 (08:47→20:18)
[2019-02-25] MEDS: MUPIROCIN 2% 22 GM OINT TOP SCH ×2 (08:47→20:18)
--- NOTE | 2019-02-25 11:17 | CONS ---
Assessment/Plan Assessment/Plan Hospital Course (Demo Recall) SUBJECTIVE: looks comfortable MICROBIOLOGY: Blood culture grew coagulase-negative staph species. MRSA swab positive. Urine culture grew Proteus mirabilis and Klebsiella extended-spectrum beta-lactamase. DIAGNOSTICS: CT of the abdomen and pelvis yesterday revealed fecal filled colon, suggestive for constipation. No diverticulitis, no obstruction or inflammation, no evidence of hydronephrosis, bilateral basilar atelectasis. PHYSICAL EXAMINATION: GENERAL: This is a chronically ill-appearing, middle-aged man who is awake, in no distress. HEENT: Head atraumatic, normocephalic. Sclerae anicteric. Buccal mucosa pink. NECK: Supple. CHEST: Rise symmetrical. Breath sounds clear. HEART: S1, S2. ABDOMEN: Soft, bowel sounds present. EXTREMITIES: Right lower extremity dressing intact. Assessment: RLE cellulitis MDR UTI==> GNR/ESBL MRSA + nares Paraplegia N bladder Constipation Hx polysubstance abuse Bacteremia==> cw contaminant BUE numbness==> neuro follows Plan: Remains stable, completed abx Consultation Date/Type/Reason Admit Date/Time Feb 10, 2019 at 23:43 Initial Consult Date Type of Consult id Requesting Provider: DMITRY CALHOUN MD Date/Time of Note DATE: 02/25/19 TIME: 11:16 Exam/Review of Systems Exam Vitals Vital Signs Date Temp Pulse Resp B/P (MAP) Pulse Ox O2 O2 Flow FiO2 Time Delivery Rate 02/25/19 98.0 50 18 119/55 96 Room Air 07:45 (76) Intake and Output 02/24/19 02/24/19 02/25/19 1515:00 23:00 07:00 IntakeIntake Total 1080 ml 640 ml OutputOutput Total 1400 ml 750 ml 1400 ml BalanceBalance -320 ml -110 ml -1400 ml Medications Medication Current Medications IV Flush (NS 3 ml) 3 ml PER PROTOCOL IV Last administered on 02/24/19at 16:48; Admin Dose 3 ML; Start 02/10/19 at 23:00 Ondansetron HCl (Zofran Inj) 4 mg Q6H PRN IV NAUSEA/VOMITING Last administered on 02/23/19at 00:54; Admin Dose 4 MG; Start 02/10/19 at 23:00 Acetaminophen (Tylenol Tab) 650 mg Q6H PRN PO .PAIN 1-3 OR TEMP Last administered on 02/20/19 03:49; Admin Dose 650 MG; Start 02/10/19 at 23:00 Docusate Sodium (Colace) 100 mg Q12H PRN PO .CONSTIPATION Last administered on 02/25/19 08:45; Admin Dose 100 MG; Start 02/10/19 at 23:00 Bisacodyl (Dulcolax) 5 mg DAILY PRN PO .CONSTIPATION Last administered on 02/24/19 22:07; Admin Dose 5 MG; Start 02/10/19 at 23:00 Enoxaparin Sodium (Lovenox) 40 mg DAILY SC Last administered on 02/25/19 08:45; Admin Dose 40 MG; Start 02/11/19 at 09:00 Morphine Sulfate (Ms Contin (Er)) 30 mg BID PO Last administered on 02/25/19 08:41; Admin Dose 30 MG; Start 02/10/19 at 23:30 Gabapentin (Neurontin) 600 mg BID PO Last administered on 02/25/19 08:41; Admin Dose 600 MG; Start 02/11/19 at 09:00 Acetaminophen/ Hydrocodone Bitart ([place] (10/325)) 1 tab Q6H PRN PO PAIN LEVEL 1-3 Last administered on 02/25/19 00:32; Admin Dose 1 TAB; Start 02/11/19 at 02:24 Miscellaneous Information (Pending [facility] Order For Wound Care) This patient oliveros... PRN PRN XX WOUND CARE; Start 02/11/19 at 05:00 Baclofen (Lioresal) 40 mg BID PO Last administered on 02/25/19 08:41; Admin Dose 40 MG; Start 02/11/19 at 21:00 Morphine Sulfate (morphine) 2 mg Q4H PRN IV SEVERE PAIN LEVEL 7-10 Last administered on 02/25/19 09:56; Admin Dose 2 MG; Start 02/11/19 at 13:00 Levothyroxine Sodium (Synthroid) 100 mcg DAILY@06 PO Last administered on 02/25/19 05:17; Admin Dose 100 MCG; Start 02/12/19 at 14:00 Polyethylene Glycol (Miralax) 17 gm DAILY PO Last administered on 02/24/19 09:21; Admin Dose 17 GM; Start 02/13/19 at 12:00 Mupirocin (Bactroban) 1 applic BID TOP Last administered on 02/25/19at 08:47; Admin Dose 1 APPLIC; Start 02/18/19 at 16:00; Stop 03/04/19 at 15:59 Bisacodyl (Dulcolax Supp) 10 mg DAILY PRN [place] CONSTIPATION Last administered on 02/19/19at 00:01; Admin Dose 10 MG; Start 02/19/19 at 00:00 Sodium Biphosphate/ Sodium Phosphate (Fleet Enema) 133 ml DAILY PRN [place] CONSTIPATION; Start 02/19/19 at 15:00 RADHA HUTCHISON NP Feb 25, 2019 11:17
--- NOTE | 2019-02-25 13:48 | PN ---
Date/Time of Note Date/Time of Note DATE: 02/25/19 TIME: 13:45 Assessment/Plan VTE Prophylaxis Risk score (from Ns)>0 risk: 4 SCD applied (from Ns): Yes Pharmacological prophylaxis: LMWH Lines/Catheters IV Catheter Type (from Nrsg): Saline Lock Urinary Cath still in place: Yes Reason Cath still needed: urinary retention Assessment/Plan Assessment/Plan 1. Right lower extremity cellulitis, stable, continue wound care 2. UTI with urine culture positive with ESBL K. pneumo and proteus, treated 3. Ischial healed ulcers, off of pressure 4. Paraplegia complicated with neurological pain and muscle spasm, chronic, stable 5. Mod with CARLEY 1.21 and sever AI, cardiology outpatient 6. History of illicit drug use, currently EtOH, drug screen negative 7. Blood culture positive, cw contamination 8. 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 Hypothyroidism, on synthroid 10. Numbness on both arms, previous accident related, cervical CT reviewed, no acute changes, follow up- with neurology 11. DVT GI prophylaxis: Lovenox Subjective 24 Hr Interval Summary Free Text/Dictation afebrile. pain on finger tips Exam/Review of Systems Exam Vitals Vital Signs Date Temp Pulse Resp B/P (MAP) Pulse Ox O2 O2 Flow FiO2 Time Delivery Rate 02/25/19 98.0 50 18 119/55 96 Room Air 07:45 (76) Intake and Output 02/24/19 02/24/19 02/25/19 1515:00 23:00 07:00 IntakeIntake Total 1080 ml 640 ml OutputOutput Total 1400 ml 750 ml 1400 ml BalanceBalance -320 ml -110 ml -1400 ml Constitutional: alert, oriented, well developed Head: normocephalic, atraumatic Eyes: nl conjunctiva, EOMI, nl lids, PERRL ENMT: nl external ears & nose, nl lips & teeth, nl nasal mucosa & septum Neck: supple, non-tender Respiratory: clear to auscultation, normal air movement; No congested cough, No crackles/rales, No diminished breath sounds, No intercostal retraction, No labored breathing, No respirations, No tactile fremitus, No wheezing, No other Cardiovascular: regular rate and rhythm, nl pulses; No bruits, No diastolic murmur, No edema, No gallop, No irregular rhythm, No jugular venous distention (JVD), No murmurs/extra sounds, No rub, No systolic murmur, No S3, No S4, No other Gastrointestinal: soft, nl liver, spleen, non-tender Extremities: other (right lower extremity wound) 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, nl mental status, nl speech, nl strength Medications Medication Current Medications IV Flush (NS 3 ml) 3 ml PER PROTOCOL IV Last administered on 02/24/19 16:48; Admin Dose 3 ML; Start 02/10/19 at 23:00 Ondansetron HCl (Zofran Inj) 4 mg Q6H PRN IV NAUSEA/VOMITING Last administered on 02/23/19 00:54; Admin Dose 4 MG; Start 02/10/19 at 23:00 Acetaminophen (Tylenol Tab) 650 mg Q6H PRN PO .PAIN 1-3 OR TEMP Last administered on 02/20/19 03:49; Admin Dose 650 MG; Start 02/10/19 at 23:00 Docusate Sodium (Colace) 100 mg Q12H PRN PO .CONSTIPATION Last administered on 02/25/19 08:45; Admin Dose 100 MG; Start 02/10/19 at 23:00 Bisacodyl (Dulcolax) 5 mg DAILY PRN PO .CONSTIPATION Last administered on 02/24/19 22:07; Admin Dose 5 MG; Start 02/10/19 at 23:00 Enoxaparin Sodium (Lovenox) 40 mg DAILY SC Last administered on 02/25/19 08:45; Admin Dose 40 MG; Start 02/11/19 at 09:00 Morphine Sulfate (Ms Contin (Er)) 30 mg BID PO Last administered on 02/25/19 08:41; Admin Dose 30 MG; Start 02/10/19 at 23:30 Gabapentin (Neurontin) 600 mg BID PO Last administered on 02/25/19 08:41; Admin Dose 600 MG; Start 02/11/19 at 09:00 Acetaminophen/ Hydrocodone Bitart ([place] (10/325)) 1 tab Q6H PRN PO PAIN LEVEL 1-3 Last administered on 02/25/19 00:32; Admin Dose 1 TAB; Start 02/11/19 at 02:24 Miscellaneous Information (Pending [facility] Order For Wound Care) This patient oliveros... PRN PRN XX WOUND CARE; Start 02/11/19 at 05:00 Baclofen (Lioresal) 40 mg BID PO Last administered on 02/25/19 08:41; Admin Dose 40 MG; Start 02/11/19 at 21:00 Morphine Sulfate (morphine) 2 mg Q4H PRN IV SEVERE PAIN LEVEL 7-10 Last administered on 02/25/19 09:56; Admin Dose 2 MG; Start 02/11/19 at 13:00 Levothyroxine Sodium (Synthroid) 100 mcg DAILY@06 PO Last administered on 02/25/19 05:17; Admin Dose 100 MCG; Start 02/12/19 at 14:00 Polyethylene Glycol (Miralax) 17 gm DAILY PO Last administered on 02/24/19 09:21; Admin Dose 17 GM; Start 02/13/19 at 12:00 Mupirocin (Bactroban) 1 applic BID TOP Last administered on 02/25/19 08:47; Admin Dose 1 APPLIC; Start 02/18/19 at 16:00; Stop 03/04/19 at 15:59 Bisacodyl (Dulcolax Supp) 10 mg DAILY PRN [place] CONSTIPATION Last administered on 02/19/19at 00:01; Admin Dose 10 MG; Start 02/19/19 at 00:00 Sodium Biphosphate/ Sodium Phosphate (Fleet Enema) 133 ml DAILY PRN [place] CONSTIPATION; Start 02/19/19 at 15:00 DMITRY CALHOUN MD Feb 25, 2019 13:48
[2019-02-25 14:00] VITALS: BP 118/36; PULSE 55; RESP 18
[2019-02-25 20:00] VITALS: BP 110/45; PULSE 62; RESP 19
[2019-02-25] MEDS: BISACODYL (EC) 5 MG TAB PO PRN (21:39)
[2019-02-26] MEDS: HYDROCODONE/APAP (10/325) TAB PO PRN ×3 (00:52→19:29)
[2019-02-26 01:57] VITALS: BP 104/41; PULSE 56; RESP 20
[2019-02-26] MEDS: morphine 2 MG INJ IV PRN ×2 (04:44→09:55)
[2019-02-26] MEDS: LEVOTHYROXINE 100 MCG TAB PO SCH (05:36)
[2019-02-26 07:25] VITALS: BP 100/57; PULSE 59; RESP 18
[2019-02-26] MEDS: morphine (ER) 30 MG TAB PO SCH ×2 (08:14→20:43)
[2019-02-26] MEDS: GABAPENTIN 300 MG CAP PO SCH ×3 (08:14→20:43)
[2019-02-26] MEDS: ENOXAPARIN 40 MG/0.4 ML SYG SC SCH (08:15)
[2019-02-26] MEDS: POLYETHYLENE GLYCOL 17 GM PACKET PO SCH (08:16)
[2019-02-26] MEDS: MUPIROCIN 2% 22 GM OINT TOP SCH ×2 (08:19→20:46)
[2019-02-26] MEDS: BALSAM PERU/CASTOR OIL 60 GM TUBE TOP SCH ×2 (08:20→20:46)
[2019-02-26] MEDS: BACLOFEN 10 MG TAB PO SCH ×2 (08:53→20:43)
--- NOTE | 2019-02-26 09:19 | CONS ---
Assessment/Plan Assessment/Plan Assessment/Plan (Recall) 49 M c/ reported lower C spine trauma c/b fracture..s/p surgery > 2 years ago...who is admitted for R leg swelling and redness.. The patient now notes 3 days of worsening numbness in his hands and legs, for which neurology is consulted.. An acute exacerbation of his chronic cervical spine pathology is possible.. CT C spine is without evidence of acute fracture, but is technically limited MRI C spine is contraindicated.. P: Change Neurontin to tid, Add Naproxen bid (w/ protonix) Other pain control and other medical management per primary Consider EMG/NCS for further characterization, which may be done on a outpatient basis PT/OT as tolerated Will sign off for now; please call w/ ?s Consultation Date/Type/Reason Admit Date/Time Feb 10, 2019 at 23:43 Type of Consult Neurology Reason for Consultation 4 limb numbness Requesting Provider: DMITRY CALHOUN MD Date/Time of Note DATE: 02/26/19 TIME: 09:18 24 HR Interval Summary Free Text/Dictation Notes continued numbness and pain in neck and limbs.. Insists on neurology re-evaluation.. Exam/Review of Systems Exam Vitals Vital Signs Date Temp Pulse Resp B/P (MAP) Pulse Ox O2 O2 Flow FiO2 Time Delivery Rate 02/26/19 98.0 59 18 100/57 97 Room Air 07:25 (71) Intake and Output 02/25/19 02/25/19 02/26/19 1515:00 23:00 07:00 IntakeIntake Total 500 ml 300 ml OutputOutput Total 900 ml 1250 ml BalanceBalance -400 ml 300 ml -1250 ml Medications Medication Current Medications IV Flush (NS 3 ml) 3 ml PER PROTOCOL IV Last administered on 02/24/19at 16:48; Admin Dose 3 ML; Start 02/10/19 at 23:00 Ondansetron HCl (Zofran Inj) 4 mg Q6H PRN IV NAUSEA/VOMITING Last administered on 02/23/19at 00:54; Admin Dose 4 MG; Start 02/10/19 at 23:00 Acetaminophen (Tylenol Tab) 650 mg Q6H PRN PO .PAIN 1-3 OR TEMP Last admi nistered on 02/20/19at 03:49; Admin Dose 650 MG; Start 02/10/19 at 23:00 Docusate Sodium (Colace) 100 mg Q12H PRN PO .CONSTIPATION Last administered on 02/25/19 08:45; Admin Dose 100 MG; Start 02/10/19 at 23:00 Bisacodyl (Dulcolax) 5 mg DAILY PRN PO .CONSTIPATION Last administered on 02/25/19 21:39; Admin Dose 5 MG; Start 02/10/19 at 23:00 Enoxaparin Sodium (Lovenox) 40 mg DAILY SC Last administered on 02/26/19 08:15; Admin Dose 40 MG; Start 02/11/19 at 09:00 Morphine Sulfate (Ms Contin (Er)) 30 mg BID PO Last administered on 02/26/19 08:14; Admin Dose 30 MG; Start 02/10/19 at 23:30 Gabapentin (Neurontin) 600 mg BID PO Last administered on 02/26/19 08:14; Admin Dose 600 MG; Start 02/11/19 at 09:00 Acetaminophen/ Hydrocodone Bitart ([place] (10/325)) 1 tab Q6H PRN PO PAIN LEVEL 1-3 Last administered on 02/26/19 00:52; Admin Dose 1 TAB; Start 02/11/19 at 02:24 Miscellaneous Information (Pending [facility] Order For Wound Care) This patient oliveros... PRN PRN XX WOUND CARE; Start 02/11/19 at 05:00 Baclofen (Lioresal) 40 mg BID PO Last administered on 02/26/19 08:53; Admin Dose 40 MG; Start 02/11/19 at 21:00 Morphine Sulfate (morphine) 2 mg Q4H PRN IV SEVERE PAIN LEVEL 7-10 Last administered on 02/26/19 04:44; Admin Dose 2 MG; Start 02/11/19 at 13:00 Levothyroxine Sodium (Synthroid) 100 mcg DAILY@06 PO Last administered on 02/26/19 05:36; Admin Dose 100 MCG; Start 02/12/19 at 14:00 Polyethylene Glycol (Miralax) 17 gm DAILY PO Last administered on 02/26/19 08:16; Admin Dose 17 GM; Start 02/13/19 at 12:00 Mupirocin (Bactroban) 1 applic BID TOP Last administered on 02/26/19at 08:19; Admin Dose 1 APPLIC; Start 02/18/19 at 16:00; Stop 03/04/19 at 15:59 Bisacodyl (Dulcolax Supp) 10 mg DAILY PRN [place] CONSTIPATION Last administered on 02/19/19at 00:01; Admin Dose 10 MG; Start 02/19/19 at 00:00 Sodium Biphosphate/ Sodium Phosphate (Fleet Enema) 133 ml DAILY PRN [place] CONSTIPATION; Start 02/19/19 at 15:00 MICHAELLE TAN Feb 26, 2019 09:19
[2019-02-26] MEDS: NAPROXEN 250 MG TAB PO SCH ×2 (10:36→20:44)
--- NOTE | 2019-02-26 12:34 | CONS ---
Assessment/Plan Assessment/Plan Hospital Course (Demo Recall) SUBJECTIVE: Alert, eating lunch, looks comfortable MICROBIOLOGY: Blood culture grew coagulase-negative staph species. MRSA swab positive. Urine culture grew Proteus mirabilis and Klebsiella extended-spectrum beta-lactamase. DIAGNOSTICS: CT of the abdomen and pelvis yesterday revealed fecal filled colon, suggestive for constipation. No diverticulitis, no obstruction or inflammation, no evidence of hydronephrosis, bilateral basilar atelectasis. PHYSICAL EXAMINATION: GENERAL: This is a chronically ill-appearing, middle-aged man who is awake, in no distress. HEENT: Head atraumatic, normocephalic. Sclerae anicteric. Buccal mucosa pink. NECK: Supple. CHEST: Rise symmetrical. Breath sounds clear. HEART: S1, S2. ABDOMEN: Soft, bowel sounds present. EXTREMITIES: Right lower extremity dressing intact. Assessment: Status post RLE cellulitis Status post MDR UTI==> GNR/ESBL MRSA + nares Paraplegia N bladder Constipation Hx polysubstance abuse Bacteremia==> cw contaminant BUE numbness==> neuro follows Plan: Remains stable, completed abx Consultation Date/Type/Reason Admit Date/Time Feb 10, 2019 at 23:43 Initial Consult Date Type of Consult id Requesting Provider: DMITRY CALHOUN MD Date/Time of Note DATE: 02/26/19 TIME: 12:33 Exam/Review of Systems Exam Vitals Vital Signs Date Temp Pulse Resp B/P (MAP) Pulse Ox O2 O2 Flow FiO2 Time Delivery Rate 02/26/19 98.0 59 18 100/57 97 Room Air 07:25 (71) Intake and Output 02/25/19 02/25/19 02/26/19 1414:59 22:59 06:59 IntakeIntake Total 500 ml 300 ml OutputOutput Total 900 ml 1250 ml BalanceBalance -400 ml 300 ml -1250 ml Medications Medication Current Medications IV Flush (NS 3 ml) 3 ml PER PROTOCOL IV Last administered on 02/24/19at 16:48; Admin Dose 3 ML; Start 02/10/19 at 23:00 Ondansetron HCl (Zofran Inj) 4 mg Q6H PRN IV NAUSEA/VOMITING Last administered on 02/23/19at 00:54; Admin Dose 4 MG; Start 02/10/19 at 23:00 Acetaminophen (Tylenol Tab) 650 mg Q6H PRN PO .PAIN 1-3 OR TEMP Last administered on 02/20/19 03:49; Admin Dose 650 MG; Start 02/10/19 at 23:00 Docusate Sodium (Colace) 100 mg Q12H PRN PO .CONSTIPATION Last administered on 02/25/19 08:45; Admin Dose 100 MG; Start 02/10/19 at 23:00 Bisacodyl (Dulcolax) 5 mg DAILY PRN PO .CONSTIPATION Last administered on 02/25/19 21:39; Admin Dose 5 MG; Start 02/10/19 at 23:00 Enoxaparin Sodium (Lovenox) 40 mg DAILY SC Last administered on 02/26/19 08:15; Admin Dose 40 MG; Start 02/11/19 at 09:00 Morphine Sulfate (Ms Contin (Er)) 30 mg BID PO Last administered on 02/26/19 08:14; Admin Dose 30 MG; Start 02/10/19 at 23:30 Acetaminophen/ Hydrocodone Bitart ([place] (10325)) 1 tab Q6H PRN PO PAIN LEVEL 1-3 Last administered on 02/26/19 00:52; Admin Dose 1 TAB; Start 02/11/19 at 02:24 Miscellaneous Information (Pending [facility] Order For Wound Care) This patient oliveros... PRN PRN XX WOUND CARE; Start 02/11/19 at 05:00 Baclofen (Lioresal) 40 mg BID PO Last administered on 02/26/19 08:53; Admin Dose 40 MG; Start 02/11/19 at 21:00 Morphine Sulfate (morphine) 2 mg Q4H PRN IV SEVERE PAIN LEVEL 7-10 Last ad ministered on 02/26/19 09:55; Admin Dose 2 MG; Start 02/11/19 at 13:00 Levothyroxine Sodium (Synthroid) 100 mcg DAILY@06 PO Last administered on 02/26/19 05:36; Admin Dose 100 MCG; Start 02/12/19 at 14:00 Polyethylene Glycol (Miralax) 17 gm DAILY PO Last administered on 02/26/19 08:16; Admin Dose 17 GM; Start 02/13/19 at 12:00 Mupirocin (Bactroban) 1 applic BID TOP Last administered on 02/26/19at 08:19; Admin Dose 1 APPLIC; Start 02/18/19 at 16:00; Stop 03/04/19 at 15:59 Bisacodyl (Dulcolax Supp) 10 mg DAILY PRN [place] CONSTIPATION Last administered on 02/19/19at 00:01; Admin Dose 10 MG; Start 02/19/19 at 00:00 Sodium Biphosphate/ Sodium Phosphate (Fleet Enema) 133 ml DAILY PRN [place] CONSTIPATION; Start 02/19/19 at 15:00 Gabapentin (Neurontin) 600 mg TID PO Last administered on 02/26/19at 12:17; Admin Dose 600 MG; Start 02/26/19 at 13:00 Naproxen (Naprosyn) 250 mg BID PO Last administered on 02/26/19at 10:36; Admin Dose 250 MG; Start 02/26/19 at 10:30 Pantoprazole (Protonix Tab) 40 mg DAILY@06 PO ; Start 02/27/19 at 06:00 RADHA HUTCHISON NP Feb 26, 2019 12:34
[2019-02-26] MEDS: DOCUSATE SODIUM 100 MG CAP PO PRN (13:10)
[2019-02-26 13:46] VITALS: BP 107/30; PULSE 49; RESP 18
--- NOTE | 2019-02-26 15:44 | PN ---
Date/Time of Note Date/Time of Note DATE: 02/26/19 TIME: 15:44 Assessment/Plan VTE Prophylaxis Risk score (from Nsg)>0 risk: 4 SCD applied (from Ns): Yes Pharmacological prophylaxis: LMWH Lines/Catheters IV Catheter Type (from Nrsg): Peripheral IV Urinary Cath still in place: Yes Reason Cath still needed: other (indicate) Assessment/Plan Hospital Course SUBJECTIVE: No acute distress OBJECTIVE: Vital signs-see below PHYSICAL EXAM: Constitutional: Adequately built,not in acute distress. HEENT: Head atraumatic and normocephalic. Eyes: Extraocular muscles intact. Anicteric sclerae. Pupils equal bilaterally, reactive to light. NECK: Supple without lymph node. CHEST: Clear and good breath sounds equally. No wheezing. No rhonchi. HEART: S1, S2. Regular rate and rhythm. ABDOMEN: Soft/non tender with no rebound tenderness. Bowel sounds were present. EXTREMITIES: No cyanosis, clubbing or edema. NEUROLOGIC: Alert and oriented x3. No focal deficit. No sensory deficit. PSYCHOSOCIAL: No signs of depression. INTEGUMENTARY: No open wounds. ASSESSMENT AND PLAN:49 yo M w/C spine fracture,s/p surgery admitted w/R leg cellulitis and numbness.. Right lower extremity cellulitis -stable, continue wound care UTI with urine culture positive with ESBL K. pneumo and proteus -treated Ischial healed ulcers, off of pressure Paraplegia complicated with neurological pain and muscle spasm, chronic -stable Mod -cardiology outpatient History of illicit drug use MRSA in nares - on bactroban, finishing on 03/04/2019 Hypothyroidism - on synthroid Neuropathy/chronic pain syndrome -DC IV morphine. Continue [place] Contin which patient takes. -Continue gabapentin DVT GI prophylaxis: Lovenox Disposition: Pending [facility] placement. Patient was seen in collaboration with Dr. Eastman. Exam/Review of Systems Exam Vitals Vital Signs Date Temp Pulse Resp B/P (MAP) Pulse Ox O2 O2 Flow FiO2 Time Delivery Rate 02/26/19 98.1 49 18 107/30 96 Room Air 13:46 (55) Intake and Output 02/25/19 02/25/19 02/26/19 1414:59 22:59 06:59 IntakeIntake Total 500 ml 300 ml OutputOutput Total 900 ml 1250 ml BalanceBalance -400 ml 300 ml -1250 ml Medications Medication Current Medications IV Flush (NS 3 ml) 3 ml PER PROTOCOL IV Last administered on 02/24/19 16:48; Admin Dose 3 ML; Start 02/10/19 at 23:00 Ondansetron HCl (Zofran Inj) 4 mg Q6H PRN IV NAUSEA/VOMITING Last administered on 02/23/19 00:54; Admin Dose 4 MG; Start 02/10/19 at 23:00 Acetaminophen (Tylenol Tab) 650 mg Q6H PRN PO .PAIN 1-3 OR TEMP Last administered on 02/20/19 03:49; Admin Dose 650 MG; Start 02/10/19 at 23:00 Docusate Sodium (Colace) 100 mg Q12H PRN PO .CONSTIPATION Last administered on 02/26/19 13:10; Admin Dose 100 MG; Start 02/10/19 at 23:00 Bisacodyl (Dulcolax) 5 mg DAILY PRN PO .CONSTIPATION Last administered on 02/25/19 21:39; Admin Dose 5 MG; Start 02/10/19 at 23:00 Enoxaparin Sodium (Lovenox) 40 mg DAILY SC Last administered on 02/26/19 08:1 5; Admin Dose 40 MG; Start 02/11/19 at 09:00 Morphine Sulfate (Ms Contin (Er)) 30 mg BID PO Last administered on 02/26/19 08:14; Admin Dose 30 MG; Start 02/10/19 at 23:30 Acetaminophen/ Hydrocodone Bitart ([place] (10/325)) 1 tab Q6H PRN PO PAIN LEVEL 1-3 Last administered on 02/26/19 13:28; Admin Dose 1 TAB; Start 02/11/19 at 02:24 Miscellaneous Information (Pending [facility]yl Order For Wound Care) This patient oliveros... PRN PRN XX WOUND CARE; Start 02/11/19 at 05:00 Baclofen (Lioresal) 40 mg BID PO Last administered on 02/26/19 08:53; Admin Dose 40 MG; Start 02/11/19 at 21:00 Morphine Sulfate (morphine) 2 mg Q4H PRN IV SEVERE PAIN LEVEL 7-10 Last administered on 02/26/19 09:55; Admin Dose 2 MG; Start 02/11/19 at 13:00 Levothyroxine Sodium (Synthroid) 100 mcg DAILY@06 PO Last administered on 02/26/19at 05:36; Admin Dose 100 MCG; Start 02/12/19 at 14:00 Polyethylene Glycol (Miralax) 17 gm DAILY PO Last administered on 02/26/19 08:16; Admin Dose 17 GM; Start 02/13/19 at 12:00 Mupirocin (Bactroban) 1 applic BID TOP Last administered on 02/26/19at 08:19; Admin Dose 1 APPLIC; Start 02/18/19 at 16:00; Stop 03/04/19 at 15:59 Bisacodyl (Dulcolax Supp) 10 mg DAILY PRN [place] CONSTIPATION Last administered on 02/19/19at 00:01; Admin Dose 10 MG; Start 02/19/19 at 00:00 Sodium Biphosphate/ Sodium Phosphate (Fleet Enema) 133 ml DAILY PRN [place] CONSTIPATION; Start 02/19/19 at 15:00 Gabapentin (Neurontin) 600 mg TID PO Last administered on 02/26/19at 12:17; Admin Dose 600 MG; Start 02/26/19 at 13:00 Naproxen (Naprosyn) 250 mg BID PO Last administered on 02/26/19at 10:36; Admin Dose 250 MG; Start 02/26/19 at 10:30 Pantoprazole (Protonix Tab) 40 mg DAILY@06 PO ; Start 02/27/19 at 06:00 BIA BRAUN NP Feb 26, 2019 15:44
[2019-02-26] MEDS ORDERED: ALPRAZOLAM 0.25 MG TAB PO PRN (16:00)
[2019-02-26 20:06] VITALS: BP 106/33; PULSE 48; RESP 18
[2019-02-26] MEDS ORDERED: SOD CHLORIDE 0.9% 500 ML IV ONE (22:00)
[2019-02-26] MEDS ORDERED: NITROGLYCERIN (SL) 0.4 MG TAB SL ONE (22:00)
[2019-02-26 22:53] VITALS: BP 91/33; PULSE 52
[2019-02-27 02:30] VITALS: BP 109/35; PULSE 55; RESP 18
[2019-02-27] MEDS: HYDROCODONE/APAP (10/325) TAB PO PRN (02:36)
[2019-02-27] MEDS ORDERED: ALPRAZOLAM 0.25 MG TAB PO ONE (05:17)
[2019-02-27] MEDS: PANTOPRAZOLE (EC) 40 MG TAB PO SCH (05:25)
[2019-02-27] MEDS: LEVOTHYROXINE 100 MCG TAB PO SCH (05:25)
[2019-02-27 07:36] VITALS: BP 99/39; PULSE 51; RESP 18
[2019-02-27] MEDS: NAPROXEN 250 MG TAB PO SCH ×2 (10:47→20:42)
[2019-02-27] MEDS: POLYETHYLENE GLYCOL 17 GM PACKET PO SCH (10:47)
[2019-02-27] MEDS: GABAPENTIN 300 MG CAP PO SCH ×3 (10:47→20:42)
[2019-02-27] MEDS: BACLOFEN 10 MG TAB PO SCH ×2 (10:48→20:42)
[2019-02-27] MEDS: morphine (ER) 30 MG TAB PO SCH ×2 (10:48→20:43)
[2019-02-27] MEDS: ENOXAPARIN 40 MG/0.4 ML SYG SC SCH (10:49)
[2019-02-27] MEDS: MUPIROCIN 2% 22 GM OINT TOP SCH ×2 (10:49→20:45)
[2019-02-27] MEDS: BALSAM PERU/CASTOR OIL 60 GM TUBE TOP SCH ×2 (10:49→20:46)
--- NOTE | 2019-02-27 11:40 | CONS ---
Assessment/Plan Assessment/Plan Hospital Course (Demo Recall) SUBJECTIVE: All noted, no acute events PHYSICAL EXAMINATION: GENERAL: This is a chronically ill-appearing, middle-aged man who is awake, in no distress. HEENT: Head atraumatic, normocephalic. Sclerae anicteric. Buccal mucosa pink. NECK: Supple. CHEST: Rise symmetrical. Breath sounds clear. HEART: S1, S2. ABDOMEN: Soft, bowel sounds present. EXTREMITIES: Right lower extremity dressing intact. Assessment: Status post RLE cellulitis Status post MDR UTI==> GNR/ESBL MRSA + nares Paraplegia N bladder Constipation Hx polysubstance abuse Bacteremia==> cw contaminant BUE numbness==> neuro follows Plan: Remains stable off abx Consultation Date/Type/Reason Admit Date/Time Feb 10, 2019 at 23:43 Initial Consult Date Type of Consult id Requesting Provider: DMITRY CALHOUN MD Date/Time of Note DATE: 02/27/19 TIME: 11:40 Exam/Review of Systems Exam Vitals Vital Signs Date Temp Pulse Resp B/P (MAP) Pulse Ox O2 O2 Flow FiO2 Time Delivery Rate 02/27/19 98.0 51 18 99/39 (59) 94 07:36 02/27/19 Room Air 02:30 Intake and Output 02/26/19 02/26/19 02/27/19 1414:59 22:59 06:59 IntakeIntake Total 300 ml 300 ml 740 ml OutputOutput Total 1500 ml BalanceBalance 300 ml 300 ml -760 ml Results Results 24hrs Laboratory Tests Test 02/26/19 22:20 Troponin I < 0.012 Medications Medication Current Medications IV Flush (NS 3 ml) 3 ml PER PROTOCOL IV Last administered on 02/24/19at 16:48; Admin Dose 3 ML; Start 02/10/19 at 23:00 Ondansetron HCl (Zofran Inj) 4 mg Q6H PRN IV NAUSEA/VOMITING Last administered on 02/23/19at 00:54; Admin Dose 4 MG; Start 02/10/19 at 23:00 Acetaminophen (Tylenol Tab) 650 mg Q6H PRN PO .PAIN 1-3 OR TEMP Last administered on 02/20/19at 03:49; Admin Dose 650 MG; Start 02/10/19 at 23:00 Docusate Sodium (Colace) 100 mg Q12H PRN PO .CONSTIPATION Last administered on 02/26/19 13:10; Admin Dose 100 MG; Start 02/10/19 at 23:00 Bisacodyl (Dulcolax) 5 mg DAILY PRN PO .CONSTIPATION Last administered on 02/25/19 21:39; Admin Dose 5 MG; Start 02/10/19 at 23:00 Enoxaparin Sodium (Lovenox) 40 mg DAILY SC Last administered on 02/27/19 10:49; Admin Dose 40 MG; Start 02/11/19 at 09:00 Morphine Sulfate (Ms Contin (Er)) 30 mg BID PO Last administered on 02/27/19 10:48; Admin Dose 30 MG; Start 02/10/19 at 23:30 Acetaminophen/ Hydrocodone Bitart ([place] (10)) 1 tab Q6H PRN PO PAIN LEVEL 1-3 Last administered on 02/27/19 02:36; Admin Dose 1 TAB; Start 02/11/19 at 02:24 [facility] This patient oliveros... PRN PRN XX WOUND CARE; Start 02/11/19 at 05:00 Baclofen (Lioresal) 40 mg BID PO Last administered on 02/27/19 10:48; Admin Dose 40 MG; Start 02/11/19 at 21:00 Levothyroxine Sodium (Synthroid) 100 mcg DAILY@06 PO Last administered on 05:25; Admin Dose 100 MCG; Start 02/12/19 at 14:00 Polyethylene Glycol (Miralax) 17 gm DAILY PO Last administered on 02/27/19 10:47; Admin Dose 17 GM; Start 02/13/19 at 12:00 Mupirocin (Bactroban) 1 applic BID TOP Last administered on 02/27/19 10:49; Admin Dose 1 APPLIC; Start 02/18/19 at 16:00; Stop 03/04/19 at 15:59 Bisacodyl (Dulcolax Supp) 10 mg DAILY PRN [place] CONSTIPATION Last administered on 02/19/19at 00:01; Admin Dose 10 MG; Start 02/19/19 at 00:00 Sodium Biphosphate/ Sodium Phosphate (Fleet Enema) 133 ml DAILY PRN [place] CONSTIPATION; Start 02/19/19 at 15:00 Gabapentin (Neurontin) 600 mg TID PO Last administered on 02/27/19at 10:47; Admin Dose 600 MG; Start 02/26/19 at 13:00 Naproxen (Naprosyn) 250 mg BID PO Last administered on 02/27/19at 10:47; Admin Dose 250 MG; Start 02/26/19 at 10:30 Pantoprazole (Protonix Tab) 40 mg DAILY@06 PO Last administered on 02/27/19at 05:25; Admin Dose 40 MG; Start 02/27/19 at 06:00 Alprazolam (Xanax) 0.25 mg HS PRN PO ANXIETY; Start 02/26/19 at 16:00 RADHA HUTCHISON NP Feb 27, 2019 11:40
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
[2019-02-27 14:48] VITALS: BP 107/56; PULSE 57; RESP 19
[2019-02-27 20:13] VITALS: BP 104/39; PULSE 60; RESP 18
[2019-02-28] MEDS: ALPRAZOLAM 0.25 MG TAB PO PRN ×2 (00:10→23:00)
[2019-02-28] MEDS: DOCUSATE SODIUM 100 MG CAP PO PRN (00:12)
[2019-02-28 02:08] VITALS: BP 109/45; PULSE 60; RESP 18
[2019-02-28] MEDS: LEVOTHYROXINE 100 MCG TAB PO SCH (05:55)
[2019-02-28] MEDS: PANTOPRAZOLE (EC) 40 MG TAB PO SCH (05:55)
[2019-02-28 08:43] VITALS: BP 118/36; PULSE 55; RESP 18
[2019-02-28] MEDS: GABAPENTIN 300 MG CAP PO SCH ×3 (09:26→20:14)
[2019-02-28] MEDS: POLYETHYLENE GLYCOL 17 GM PACKET PO SCH (09:26)
[2019-02-28] MEDS: BACLOFEN 10 MG TAB PO SCH ×2 (09:26→20:15)
[2019-02-28] MEDS: morphine (ER) 30 MG TAB PO SCH ×2 (09:27→20:15)
[2019-02-28] MEDS: NAPROXEN 250 MG TAB PO SCH ×2 (09:27→20:15)
[2019-02-28] MEDS: ENOXAPARIN 40 MG/0.4 ML SYG SC SCH (09:28)
[2019-02-28] MEDS: MUPIROCIN 2% 22 GM OINT TOP SCH ×2 (09:29→20:19)
[2019-02-28] MEDS: BALSAM PERU/CASTOR OIL 60 GM TUBE TOP SCH ×2 (09:29→20:19)
[2019-02-28] MEDS: ACETAMINOPHEN 325 MG TAB PO PRN (13:27)
[2019-02-28 14:00] VITALS: BP 96/49; PULSE 65; RESP 16
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
[2019-02-28] MEDS: HYDROmorphONE 2 MG TAB PO PRN (18:15)
[2019-02-28 20:00] VITALS: BP 104/56; PULSE 61; RESP 17
[2019-03-01] MEDS: HYDROmorphONE 2 MG TAB PO PRN ×3 (00:33→17:49)
[2019-03-01 02:00] VITALS: BP 109/38; PULSE 55; RESP 16
[2019-03-01] MEDS: LEVOTHYROXINE 100 MCG TAB PO SCH (06:29)
[2019-03-01] MEDS: PANTOPRAZOLE (EC) 40 MG TAB PO SCH (06:29)
[2019-03-01 08:00] VITALS: BP 100/43; PULSE 53; RESP 16
[2019-03-01] MEDS: POLYETHYLENE GLYCOL 17 GM PACKET PO SCH (09:00)
[2019-03-01] MEDS: BACLOFEN 10 MG TAB PO SCH ×2 (09:09→20:16)
[2019-03-01] MEDS: NAPROXEN 250 MG TAB PO SCH ×2 (09:09→20:16)
[2019-03-01] MEDS: GABAPENTIN 300 MG CAP PO SCH (09:09)
[2019-03-01] MEDS: morphine (ER) 30 MG TAB PO SCH ×2 (09:10→20:16)
[2019-03-01] MEDS: BALSAM PERU/CASTOR OIL 60 GM TUBE TOP SCH ×2 (09:10→20:21)
[2019-03-01] MEDS: MUPIROCIN 2% 22 GM OINT TOP SCH ×2 (09:10→20:21)
[2019-03-01] MEDS: ENOXAPARIN 40 MG/0.4 ML SYG SC SCH (09:18)
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
[2019-03-01] MEDS: GABAPENTIN 400 MG CAP PO SCH ×2 (13:02→20:16)
[2019-03-01 14:00] VITALS: BP 90/40; PULSE 60; RESP 17
[2019-03-01 19:35] VITALS: BP 96/44; PULSE 67; RESP 17
[2019-03-01] MEDS: NORTRIPTYLINE 25 MG CAP PO SCH (20:17)
[2019-03-01] MEDS: DOCUSATE SODIUM 100 MG CAP PO PRN (22:52)
[2019-03-01] MEDS: ALPRAZOLAM 0.25 MG TAB PO PRN (22:52)
[2019-03-02] MEDS: ACETAMINOPHEN 325 MG TAB PO PRN (01:14)
[2019-03-02 02:07] VITALS: BP 109/48; PULSE 77; RESP 16
[2019-03-02] MEDS: LEVOTHYROXINE 100 MCG TAB PO SCH (06:44)
[2019-03-02] MEDS: PANTOPRAZOLE (EC) 40 MG TAB PO SCH (06:44)
[2019-03-02 07:30] VITALS: BP 108/49; PULSE 55; RESP 16
[2019-03-02] MEDS: NAPROXEN 250 MG TAB PO SCH ×2 (08:33→20:12)
[2019-03-02] MEDS: GABAPENTIN 400 MG CAP PO SCH ×3 (08:33→20:12)
[2019-03-02] MEDS: BACLOFEN 10 MG TAB PO SCH ×2 (08:33→20:12)
[2019-03-02] MEDS: morphine (ER) 30 MG TAB PO SCH ×2 (08:34→20:13)
[2019-03-02] MEDS: MUPIROCIN 2% 22 GM OINT TOP SCH ×2 (08:34→20:15)
[2019-03-02] MEDS: POLYETHYLENE GLYCOL 17 GM PACKET PO SCH (08:34)
[2019-03-02] MEDS: BALSAM PERU/CASTOR OIL 60 GM TUBE TOP SCH ×2 (08:35→20:15)
[2019-03-02] MEDS: ENOXAPARIN 40 MG/0.4 ML SYG SC SCH (08:44)
--- NOTE | 2019-03-02 09:14 | RADRPT ---
Vent Rate: 49 bpm RR Interval: 1216 msec [place] Interval: 165 msec QRS Duration: 104 msec QT Interval: 515 msec QTC Interval: 467 msec P-R-T [place]: 20 - -21 - 11 degrees Sinus bradycardia...rate< 50 Probable left ventricular hypertrophy...multiple LVH criteria Electronically Signed By: Bruno Louise
[2019-03-02 13:00] VITALS: BP 107/42; PULSE 59; RESP 17
--- NOTE | 2019-03-02 13:03 | PN ---
Date/Time of Note Date/Time of Note DATE: 03/02/19 TIME: 13:02 Assessment/Plan VTE Prophylaxis Risk score (from Ns)>0 risk: 5 SCD applied (from [facility]): No SCD contraindicated: other Pharmacological prophylaxis: LMWH Lines/Catheters IV Catheter Type (from [facility]): Peripheral IV Urinary Cath still in place: Yes Reason Cath still needed: urinary retention Assessment/Plan Hospital Course SUBJECTIVE: No acute distress OBJECTIVE: Vital signs-see below PHYSICAL EXAM: Constitutional: Adequately built,not in acute distress. HEENT: Head atraumatic and normocephalic. Eyes: Extraocular muscles intact. Anicteric sclerae. Pupils equal bilaterally, reactive to light. NECK: Supple without lymph node. CHEST: Clear and good breath sounds equally. No wheezing. No rhonchi. HEART: S1, S2. Regular rate and rhythm. ABDOMEN: Soft/non tender with no rebound tenderness. Bowel sounds were present. EXTREMITIES: No cyanosis, clubbing or edema. NEUROLOGIC: Alert and oriented x3. No focal deficit. No sensory deficit. PSYCHOSOCIAL: No signs of depression. INTEGUMENTARY: No open wounds. ASSESSMENT AND PLAN:49 yo M w/C spine fracture,s/p surgery admitted w/R leg cellulitis and numbness.. Right lower extremity cellulitis -stable, continue wound care UTI with urine culture positive with ESBL K. 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 Dilaudid. Continue with outpatient regimen MS Contin with as needed [place]. DVT GI prophylaxis: Lovenox Disposition: Patient homeless. No skilled nursing available to accept him. At this time, case management/social worker psychiatric for appropriate disposition Patient was seen in collaboration with Dr. Eastman. Exam/Review of Systems Exam Vitals Vital Signs Date Temp Pulse Resp B/P (MAP) Pulse Ox O2 O2 Flow FiO2 Time Delivery Rate 03/02/19 97.4 55 16 108/49 96 Room Air 07:30 (68) Intake and Output 03/01/19 03/01/19 03/02/19 1515:00 23:00 07:00 OutputOutput Total 1500 ml 1200 ml BalanceBalance -1500 ml -1200 ml Medications Medication Current Medications IV Flush (NS 3 ml) 3 ml PER PROTOCOL IV Last administered on 02/24/19 16:48; Admin Dose 3 ML; Start 02/10/19 at 23:00 Ondansetron HCl (Zofran Inj) 4 mg Q6H PRN IV NAUSEA/VOMITING Last administered on 02/23/19 00:54; Admin Dose 4 MG; Start 02/10/19 at 23:00 Acetaminophen (Tylenol Tab) 650 mg Q6H PRN PO .PAIN 1-3 OR TEMP Last administered on 03/02/19 01:14; Admin Dose 650 MG; Start 02/10/19 at 23:00 Docusate Sodium (Colace) 100 mg Q12H PRN PO .CONSTIPATION Last administered on 03/01/19 22:52; Admin Dose 100 MG; Start 02/10/19 at 23:00 Bisacodyl (Dulcolax) 5 mg DAILY PRN PO .CONSTIPATION Last administered on 02/25/19 21:39; Admin Dose 5 MG; Start 02/10/19 at 23:00 Enoxaparin Sodium (Lovenox) 40 mg DAILY SC Last administered on 03/02/19 08:44; Admin Dose 40 MG; Start 02/11/19 at 09:00 Morphine Sulfate (Ms Contin (Er)) 30 mg BID PO Last administered on 03/02/19 08:34; Admin Dose 30 MG; Start 02/10/19 at 23:30 [facility] This patient oliveros... PRN PRN XX WOUND CARE; Start 02/11/19 at 05:00 Baclofen (Lioresal) 40 mg BID PO Last administered on 03/02/19 08:33; Admin Dose 40 MG; Start 02/11/19 at 21:00 Levothyroxine Sodium (Synthroid) 100 mcg DAILY@06 PO Last administered on 03/02/19 06:44; Admin Dose 100 MCG; Start 02/12/19 at 14:00 Polyethylene Glycol (Miralax) 17 gm DAILY PO Last administered on 03/02/19 08:34; Admin Dose 17 GM; Start 02/13/19 at 12:00 Mupirocin (Bactroban) 1 applic BID TOP Last administered on 03/02/19 08:34; Admin Dose 1 APPLIC; Start 02/18/19 at 16:00; Stop 03/04/19 at 15:59 Bisacodyl (Dulcolax Supp) 10 mg DAILY PRN [place] CONSTIPATION Last administered on 02/19/19at 00:01; Admin Dose 10 MG; Start 02/19/19 at 00:00 Sodium Biphosphate/ Sodium Phosphate (Fleet Enema) 133 ml DAILY PRN [place] CONSTIPATION; Start 02/19/19 at 15:00 Naproxen (Naprosyn) 250 mg BID PO Last administered on 03/02/19 08:33; Admin Dose 250 MG; Start 02/26/19 at 10:30 Pantoprazole (Protonix Tab) 40 mg DAILY@06 PO Last administered on 03/02/19 06:44; Admin Dose 40 MG; Start 02/27/19 at 06:00 Alprazolam (Xanax) 0.25 mg HS PRN PO ANXIETY Last administered on 03/01/19 22:52; Admin Dose 0.25 MG; Start 02/26/19 at 16:00 Hydromorphone HCl (Dilaudid) 2 mg Q6H PRN PO SEVERE PAIN LEVEL 7-10 Last administered on 03/01/19 17:49; Admin Dose 2 MG; Start 02/28/19 at 18:30 Gabapentin (Neurontin) 800 mg TID PO Last administered on 03/02/19 08:33; Admin Dose 800 MG; Start 03/01/19 at 13:00 Nortriptyline HCl (Aventyl) 25 mg HS PO Last administered on 03/01/19 20:17; Admin Dose 25 MG; Start 03/01/19 at 21:00 BIA BRAUN NP Mar 02, 2019 13:03
[2019-03-02] MEDS: HYDROCODONE/APAP (5/325) TAB PO PRN (14:45)
[2019-03-02 19:50] VITALS: BP 90/57; PULSE 89; RESP 18
[2019-03-02 20:08] VITALS: BP 99/36; PULSE 55; RESP 17
[2019-03-02] MEDS: NORTRIPTYLINE 25 MG CAP PO SCH (20:13)
[2019-03-02] MEDS: ALPRAZOLAM 0.25 MG TAB PO PRN (22:34)
[2019-03-03 01:15] VITALS: BP 118/42; PULSE 55; RESP 16
[2019-03-03] MEDS: PANTOPRAZOLE (EC) 40 MG TAB PO SCH (06:10)
[2019-03-03] MEDS: LEVOTHYROXINE 100 MCG TAB PO SCH (06:10)
[2019-03-03 08:00] VITALS: BP 101/55; PULSE 72; RESP 19
[2019-03-03] MEDS: POLYETHYLENE GLYCOL 17 GM PACKET PO SCH (08:42)
[2019-03-03] MEDS: NAPROXEN 250 MG TAB PO SCH ×2 (08:42→20:55)
[2019-03-03] MEDS: GABAPENTIN 400 MG CAP PO SCH ×3 (08:42→20:54)
[2019-03-03] MEDS: ENOXAPARIN 40 MG/0.4 ML SYG SC SCH (08:43)
[2019-03-03] MEDS: morphine (ER) 30 MG TAB PO SCH ×2 (08:43→20:55)
[2019-03-03] MEDS: MUPIROCIN 2% 22 GM OINT TOP SCH ×2 (08:50→20:56)
[2019-03-03] MEDS: BALSAM PERU/CASTOR OIL 60 GM TUBE TOP SCH ×2 (08:51→20:57)
[2019-03-03] MEDS: BACLOFEN 10 MG TAB PO SCH ×2 (09:30→20:54)
[2019-03-03] MEDS: HYDROCODONE/APAP (5/325) TAB PO PRN (11:51)
[2019-03-03 14:00] VITALS: BP 142/62; PULSE 64; RESP 19
--- NOTE | 2019-03-03 14:13 | PN ---
Date/Time of Note Date/Time of Note DATE: 03/03/19 TIME: 14:11 Assessment/Plan VTE Prophylaxis Risk score (from Ns)>0 risk: 4 SCD applied (from Ns): Yes Pharmacological prophylaxis: LMWH Lines/Catheters IV Catheter Type (from [facility]): Peripheral IV Urinary Cath still in place: Yes Reason Cath still needed: other (indicate) Assessment/Plan Hospital Course SUBJECTIVE: No acute distress OBJECTIVE: Vital signs-see below PHYSICAL EXAM: Constitutional: Adequately built,not in acute distress. HEENT: Head atraumatic and normocephalic. Eyes: Extraocular muscles intact. Anicteric sclerae. Pupils equal bilaterally, reactive to light. NECK: Supple without lymph node. CHEST: Clear and good breath sounds equally. No wheezing. No rhonchi. HEART: S1, S2. Regular rate and rhythm. ABDOMEN: Soft/non tender with no rebound tenderness. Bowel sounds were present. EXTREMITIES: No cyanosis, clubbing or edema. NEUROLOGIC: Alert and oriented x3. No focal deficit. No sensory deficit. PSYCHOSOCIAL: No signs of depression. INTEGUMENTARY: No open wounds. ASSESSMENT AND PLAN:49 yo M w/C spine fracture,s/p surgery admitted w/R leg cellulitis and numbness.. Right lower extremity cellulitis -stable, continue wound care UTI with urine culture positive with ESBL K. 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 Hepatitis C -Outpt f/u recommended DVT GI prophylaxis: Lovenox Disposition: Patient homeless. No mcc available to accept him. At this time, case management/social media sr strategy manager for appropriate disposition Patient was seen in collaboration with Dr. Eastman. Exam/Review of Systems Exam Vitals Vital Signs Date Temp Pulse Resp B/P (MAP) Pulse Ox O2 O2 Flow FiO2 Time Delivery Rate 03/03/19 97.7 72 19 101/55 94 Room Air 08:00 (70) Intake and Output 03/02/19 03/02/19 03/03/19 1515:00 23:00 07:00 IntakeIntake Total 200 ml 240 ml OutputOutput Total 551 ml 400 ml BalanceBalance 200 ml -551 ml -160 ml Medications Medication Current Medications IV Flush (NS 3 ml) 3 ml PER PROTOCOL IV Last administered on 02/24/19 16:48; Admin Dose 3 ML; Start 02/10/19 at 23:00 Ondansetron HCl (Zofran Inj) 4 mg Q6H PRN IV NAUSEA/VOMITING Last administered on 02/23/19 00:54; Admin Dose 4 MG; Start 02/10/19 at 23:00 Acetaminophen (Tylenol Tab) 650 mg Q6H PRN PO .PAIN 1-3 OR TEMP Last administered on 03/02/19 01:14; Admin Dose 650 MG; Start 02/10/19 at 23:00 Docusate Sodium (Colace) 100 mg Q12H PRN PO .CONSTIPATION Last administered on 03/01/19 22:52; Admin Dose 100 MG; Start 02/10/19 at 23:00 Bisacodyl (Dulcolax) 5 mg DAILY PRN PO .CONSTIPATION Last administered on 02/25/19 21:39; Admin Dose 5 MG; Start 02/10/19 at 23:00 Enoxaparin Sodium (Lovenox) 40 mg DAILY SC Last administered on 03/03/19 08:43; Admin Dose 40 MG; Start 02/11/19 at 09:00 Morphine Sulfate (Ms Contin (Er)) 30 mg BID PO Last administered on 03/03/19 08:43; Admin Dose 30 MG; Start 02/10/19 at 23:30 Miscellaneous Information (Pending [facility] Order For Wound Care) This patient oliveros... PRN PRN XX WOUND CARE; Start 02/11/19 at 05:00 Baclofen (Lioresal) 40 mg BID PO Last administered on 03/03/19 09:30; Admin Dose 40 MG; Start 02/11/19 at 21:00 Levothyroxine Sodium (Synthroid) 100 mcg DAILY@06 PO Last administered on 03/03/19 06:10; Admin Dose 100 MCG; Start 02/12/19 at 14:00 Polyethylene Glycol (Miralax) 17 gm DAILY PO Last administered on 03/03/19 08:42; Admin Dose 17 GM; Start 02/13/19 at 12:00 Mupirocin (Bactroban) 1 applic BID TOP Last administered on 03/03/19 08:50; Admin Dose 1 APPLIC; Start 02/18/19 at 16:00; Stop 03/04/19 at 15:59 Bisacodyl (Dulcolax Supp) 10 mg DAILY PRN [place] CONSTIPATION Last administered on 02/19/19at 00:01; Admin Dose 10 MG; Start 02/19/19 at 00:00 Sodium Biphosphate/ Sodium Phosphate (Fleet Enema) 133 ml DAILY PRN [place] CONSTIPATION; Start 02/19/19 at 15:00 Naproxen (Naprosyn) 250 mg BID PO Last administered on 03/03/19 08:42; Admin Dose 250 MG; Start 02/26/19 at 10:30 Pantoprazole (Protonix Tab) 40 mg DAILY@06 PO Last administered on 03/03/19 06:10; Admin Dose 40 MG; Start 02/27/19 at 06:00 Alprazolam (Xanax) 0.25 mg HS PRN PO ANXIETY Last administered on 03/02/19 22:34; Admin Dose 0.25 MG; Start 02/26/19 at 16:00 Gabapentin (Neurontin) 800 mg TID PO Last administered on 03/03/19 14:03; Admin Dose 800 MG; Start 03/01/19 at 13:00 Nortriptyline HCl (Aventyl) 25 mg HS PO Last administered on 03/02/19 20:13; Admin Dose 25 MG; Start 03/01/19 at 21:00 Acetaminophen/ Hydrocodone Bitart ([place] (5/325)) 1 tab Q6H PRN PO MODERATE PAIN LEVEL 4-6 Last administered on 03/03/19 11:51; Admin Dose 1 TAB; Start 03/02/19 at 13:00 BIA BRAUN NP Mar 03, 2019 14:13
[2019-03-03] MEDS: ACETAMINOPHEN 325 MG TAB PO PRN (17:13)
[2019-03-03] MEDS: NORTRIPTYLINE 25 MG CAP PO SCH (20:55)
[2019-03-03 20:57] VITALS: BP 123/55; PULSE 60; RESP 17
[2019-03-04 01:47] VITALS: BP 124/58; PULSE 60; RESP 16
[2019-03-04] MEDS: ALPRAZOLAM 0.25 MG TAB PO PRN ×2 (01:53→22:21)
[2019-03-04] MEDS: HYDROCODONE/APAP (5/325) TAB PO PRN ×2 (03:10→11:53)
[2019-03-04] MEDS: LEVOTHYROXINE 100 MCG TAB PO SCH (06:06)
[2019-03-04] MEDS: PANTOPRAZOLE (EC) 40 MG TAB PO SCH (06:06)
[2019-03-04 08:00] VITALS: BP 106/50; PULSE 59; RESP 17
[2019-03-04] MEDS: GABAPENTIN 400 MG CAP PO SCH ×3 (09:00→20:05)
[2019-03-04] MEDS: BACLOFEN 10 MG TAB PO SCH ×2 (09:00→20:04)
[2019-03-04] MEDS: POLYETHYLENE GLYCOL 17 GM PACKET PO SCH (09:00)
[2019-03-04] MEDS: NAPROXEN 250 MG TAB PO SCH ×2 (09:00→20:04)
[2019-03-04] MEDS: morphine (ER) 30 MG TAB PO SCH ×2 (09:00→20:06)
[2019-03-04] MEDS: BALSAM PERU/CASTOR OIL 60 GM TUBE TOP SCH ×2 (09:01→20:09)
[2019-03-04] MEDS: MUPIROCIN 2% 22 GM OINT TOP SCH (09:01)
[2019-03-04] MEDS: ENOXAPARIN 40 MG/0.4 ML SYG SC SCH (09:04)
--- NOTE | 2019-03-04 12:19 | PN ---
Date/Time of Note Date/Time of Note DATE: 03/04/19 TIME: 12:19 Assessment/Plan VTE Prophylaxis Risk score (from Ns)>0 risk: 6 SCD applied (from Ns): Yes Pharmacological prophylaxis: LMWH Lines[facility] IV Urinary Cath still in place: Yes Reason Cath still needed: other (indicate) Assessment/Plan Hospital Course SUBJECTIVE: No acute distress OBJECTIVE: Vital signs-see below PHYSICAL EXAM: Constitutional: Adequately built,not in acute distress. HEENT: Head atraumatic and normocephalic. Eyes: Extraocular muscles intact. Anicteric sclerae. Pupils equal bilaterally, reactive to light. NECK: Supple without lymph node. CHEST: Clear and good breath sounds equally. No wheezing. No rhonchi. HEART: S1, S2. Regular rate and rhythm. ABDOMEN: Soft/non tender with no rebound tenderness. Bowel sounds were present. EXTREMITIES: No cyanosis, clubbing or edema. NEUROLOGIC: Alert and oriented x3. No focal deficit. No sensory deficit. PSYCHOSOCIAL: No signs of depression. INTEGUMENTARY: No open wounds. ASSESSMENT AND PLAN:49 yo M w/C spine fracture,s/p surgery admitted w/R leg cellulitis and numbness.. Right lower extremity cellulitis -stable, continue wound care UTI with urine culture positive with ESBL K. 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 Hepatitis C -Outpt f/u recommended DVT GI prophylaxis: Lovenox Disposition: Patient homeless. No senior living available to accept him. At this time, case management/social services technician for appropriate disposition Patient was seen in collaboration with Dr. Eastman. Exam/Review of Systems Exam Vitals Vital Signs Date Temp Pulse Resp B/P (MAP) Pulse Ox O2 O2 Flow FiO2 Time Delivery Rate 03/04/19 97.6 59 17 106/50 95 Room Air 08:00 (68) Intake and Output 03/03/19 03/03/19 03/04/19 1515:00 23:00 07:00 IntakeIntake Total 400 ml OutputOutput Total 800 ml BalanceBalance -400 ml Medications Medication Current Medications IV Flush (NS 3 ml) 3 ml PER PROTOCOL IV Last administered on 02/24/19 16:48; Admin Dose 3 ML; Start 02/10/19 at 23:00 Ondansetron HCl (Zofran Inj) 4 mg Q6H PRN IV NAUSEA/VOMITING Last administered on 02/23/19 00:54; Admin Dose 4 MG; Start 02/10/19 at 23:00 Acetaminophen (Tylenol Tab) 650 mg Q6H PRN PO .PAIN 1-3 OR TEMP Last administered on 03/03/19 17:13; Admin Dose 650 MG; Start 02/10/19 at 23:00 Docusate Sodium (Colace) 100 mg Q12H PRN PO .CONSTIPATION Last administered on 03/01/19 22:52; Admin Dose 100 MG; Start 02/10/19 at 23:00 Bisacodyl (Dulcolax) 5 mg DAILY PRN PO .CONSTIPATION Last administered on 02/25/19 21:39; Admin Dose 5 MG; Start 02/10/19 at 23:00 Enoxaparin Sodium (Lovenox) 40 mg DAILY SC Last administered on 03/04/19 09:0 4; Admin Dose 40 MG; Start 02/11/19 at 09:00 Morphine Sulfate (Ms Contin (Er)) 30 mg BID PO Last administered on 03/04/19 09:00; Admin Dose 30 MG; Start 02/10/19 at 23:30 Miscellaneous Information (Pending [facility] Order For Wound Care) This patient oliveros... PRN PRN XX WOUND CARE; Start 02/11/19 at 05:00 Baclofen (Lioresal) 40 mg BID PO Last administered on 03/04/19 09:00; Admin Dose 40 MG; Start 02/11/19 at 21:00 Levothyroxine Sodium (Synthroid) 100 mcg DAILY@06 PO Last administered on 03/04/19 06:06; Admin Dose 100 MCG; Start 02/12/19 at 14:00 Polyethylene Glycol (Miralax) 17 gm DAILY PO Last administered on 03/04/19 09:00; Admin Dose 17 GM; Start 02/13/19 at 12:00 Mupirocin (Bactroban) 1 applic BID TOP Last administered on 03/04/19 09:01; Admin Dose 1 APPLIC; Start 02/18/19 at 16:00; Stop 03/04/19 at 15:59 Bisacodyl (Dulcolax Supp) 10 mg DAILY PRN [place] CONSTIPATION Last administered on 02/19/19at 00:01; Admin Dose 10 MG; Start 02/19/19 at 00:00 Sodium Biphosphate/ Sodium Phosphate (Fleet Enema) 133 ml DAILY PRN [place] CONSTIPATION; Start 02/19/19 at 15:00 Naproxen (Naprosyn) 250 mg BID PO Last administered on 03/04/19 09:00; Admin Dose 250 MG; Start 02/26/19 at 10:30 Pantoprazole (Protonix Tab) 40 mg DAILY@06 PO Last administered on 03/04/19 06:06; Admin Dose 40 MG; Start 02/27/19 at 06:00 Alprazolam (Xanax) 0.25 mg HS PRN PO ANXIETY Last administered on 03/04/19 01:53; Admin Dose 0.25 MG; Start 02/26/19 at 16:00 Gabapentin (Neurontin) 800 mg TID PO Last administered on 03/04/19 09:00; Admin Dose 800 MG; Start 03/01/19 at 13:00 Nortriptyline HCl (Aventyl) 25 mg HS PO Last administered on 03/03/19 20:55; Admin Dose 25 MG; Start 03/01/19 at 21:00 Acetaminophen/ Hydrocodone Bitart ([place] (5/325)) 1 tab Q6H PRN PO MODERATE PAIN LEVEL 4-6 Last administered on 03/04/19 11:53; Admin Dose 1 TAB; Start 03/02/19 at 13:00 BIA BRAUN NP Mar 04, 2019 12:19
[2019-03-04 14:41] VITALS: BP 102/52; PULSE 67; RESP 18
[2019-03-04] MEDS: NORTRIPTYLINE 25 MG CAP PO SCH (20:05)
[2019-03-04 21:31] VITALS: BP 113/56; PULSE 70; RESP 18
[2019-03-05] MEDS: HYDROCODONE/APAP (5/325) TAB PO PRN ×2 (00:49→23:30)
[2019-03-05 01:37] VITALS: BP 117/59; PULSE 75; RESP 18
[2019-03-05] MEDS: PANTOPRAZOLE (EC) 40 MG TAB PO SCH (06:34)
[2019-03-05] MEDS: LEVOTHYROXINE 100 MCG TAB PO SCH (06:34)
[2019-03-05 08:00] VITALS: BP 92/48; PULSE 60; RESP 18
[2019-03-05] MEDS: POLYETHYLENE GLYCOL 17 GM PACKET PO SCH (09:05)
[2019-03-05] MEDS: GABAPENTIN 400 MG CAP PO SCH ×3 (09:05→20:12)
[2019-03-05] MEDS: BACLOFEN 10 MG TAB PO SCH ×2 (09:05→20:12)
[2019-03-05] MEDS: BALSAM PERU/CASTOR OIL 60 GM TUBE TOP SCH ×2 (09:05→20:13)
[2019-03-05] MEDS: morphine (ER) 30 MG TAB PO SCH ×2 (09:06→20:13)
[2019-03-05] MEDS: NAPROXEN 250 MG TAB PO SCH ×2 (09:06→20:12)
[2019-03-05] MEDS: ENOXAPARIN 40 MG/0.4 ML SYG SC SCH (09:07)
--- NOTE | 2019-03-05 12:52 | PN ---
Date/Time of Note Date/Time of Note DATE: 03/05/19 TIME: 12:49 Assessment/Plan VTE Prophylaxis Risk score (from Ns)>0 risk: 6 SCD applied (from Ns): No SCD contraindicated: other Pharmacological prophylaxis: LMWH Lines/Catheters IV [facility]ter Type (from [facility]): Peripheral IV Urinary Cath still in place: No (condom cath) Assessment/Plan Hospital Course SUBJECTIVE: No acute distress OBJECTIVE: Vital signs-see below PHYSICAL EXAM: Constitutional: Adequately built,not in acute distress. HEENT: Head atraumatic and normocephalic. Eyes: Extraocular muscles intact. Anicteric sclerae. Pupils equal bilaterally, reactive to light. NECK: Supple without lymph node. CHEST: Clear and good breath sounds equally. No wheezing. No rhonchi. HEART: S1, S2. Regular rate and rhythm. ABDOMEN: Soft/non tender with no rebound tenderness. Bowel sounds were present. EXTREMITIES: No cyanosis, clubbing or edema. NEUROLOGIC: Alert and oriented x3. No focal deficit. No sensory deficit. PSYCHOSOCIAL: No signs of depression. INTEGUMENTARY: No open wounds. ASSESSMENT AND PLAN:49 yo M w/C spine fracture,s/p surgery admitted w/R leg cellulitis and numbness.. Right lower extremity cellulitis -stable, continue wound care UTI with urine culture positive with ESBL K. 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 Hepatitis C -Outpt f/u recommended DVT GI prophylaxis: Lovenox Disposition: Patient homeless. No fdc available to accept him. At this time, case management/social services counselor for appropriate disposition Patient was seen in collaboration with Dr. Eastman. Exam/Review of Systems Exam Vitals Vital Signs Date Temp Pulse Resp B/P (MAP) Pulse Ox O2 O2 Flow FiO2 Time Delivery Rate 03/05/19 98.7 60 18 92/48 (63) 95 08:00 03/04/19 Room Air 08:00 Intake and Output 03/04/19 03/04/19 03/05/19 1515:00 23:00 07:00 IntakeIntake Total 450 ml 600 ml OutputOutput Total 500 ml BalanceBalance 450 ml 100 ml Medications Medication Current Medications IV Flush (NS 3 ml) 3 ml PER PROTOCOL IV Last administered on 02/24/19 16:48; Admin Dose 3 ML; Start 02/10/19 at 23:00 Ondansetron HCl (Zofran Inj) 4 mg Q6H PRN IV NAUSEA/VOMITING Last administered on 02/23/19 00:54; Admin Dose 4 MG; Start 02/10/19 at 23:00 Acetaminophen (Tylenol Tab) 650 mg Q6H PRN PO .PAIN 1-3 OR TEMP Last administered on 03/03/19 17:13; Admin Dose 650 MG; Start 02/10/19 at 23:00 Docusate Sodium (Colace) 100 mg Q12H PRN PO .CONSTIPATION Last administered on 03/01/19 22:52; Admin Dose 100 MG; Start 02/10/19 at 23:00 Bisacodyl (Dulcolax) 5 mg DAILY PRN PO .CONSTIPATION Last administered on 02/25/19 21:39; Admin Dose 5 MG; Start 02/10/19 at 23:00 Enoxaparin Sodium (Lovenox) 40 mg DAILY SC Last administered on 03/05/19 09:07; Admin Dose 40 MG; Start 02/11/19 at 09:00 Morphine Sulfate (Ms Contin (Er)) 30 mg BID PO Last administered on 03/05/19 09:06; Admin Dose 30 MG; Start 02/10/19 at 23:30 Miscellaneous Information (Pending [facility] Order For Wound Care) This patient oliveros... PRN PRN XX WOUND CARE; Start 02/11/19 at 05:00 Baclofen (Lioresal) 40 mg BID PO Last administered on 03/05/19 09:05; Admin Dose 40 MG; Start 02/11/19 at 21:00 Levothyroxine Sodium (Synthroid) 100 mcg DAILY@06 PO Last administered on 03/05/19 06:34; Admin Dose 100 MCG; Start 02/12/19 at 14:00 Polyethylene Glycol (Miralax) 17 gm DAILY PO Last administered on 03/05/19 09:05; Admin Dose 17 GM; Start 02/13/19 at 12:00 Bisacodyl (Dulcolax Supp) 10 mg DAILY PRN [place] CONSTIPATION Last administered on 02/19/19at 00:01; Admin Dose 10 MG; Start 02/19/19 at 00:00 Sodium Biphosphate/ Sodium Phosphate (Fleet Enema) 133 ml DAILY PRN [place] CONSTIPATION; Start 02/19/19 at 15:00 Naproxen (Naprosyn) 250 mg BID PO Last administered on 03/05/19 09:06; Admin Dose 250 MG; Start 02/26/19 at 10:30 Pantoprazole (Protonix Tab) 40 mg DAILY@06 PO Last administered on 03/05/19 06:34; Admin Dose 40 MG; Start 02/27/19 at 06:00 Alprazolam (Xanax) 0.25 mg HS PRN PO ANXIETY Last administered on 03/04/19 22:21; Admin Dose 0.25 MG; Start 02/26/19 at 16:00 Gabapentin (Neurontin) 800 mg TID PO Last administered on 03/05/19 09:05; Admin Dose 800 MG; Start 03/01/19 at 13:00 Nortriptyline HCl (Aventyl) 25 mg HS PO Last administered on 03/04/19 20:05; Admin Dose 25 MG; Start 03/01/19 at 21:00 Acetaminophen/ Hydrocodone Bitart ([place] (5/325)) 1 tab Q6H PRN PO MODERATE PAIN LEVEL 4-6 Last administered on 03/05/19 00:49; Admin Dose 1 TAB; Start 03/02/19 at 13:00 BIA BRAUN NP Mar 05, 2019 12:52
[2019-03-05 14:00] VITALS: BP 112/57; PULSE 66; RESP 18
[2019-03-05 20:08] VITALS: BP 124/58; PULSE 82; RESP 18
[2019-03-05] MEDS: NORTRIPTYLINE 25 MG CAP PO SCH (20:13)
[2019-03-05] MEDS: BISACODYL (EC) 5 MG TAB PO PRN (21:43)
[2019-03-06] MEDS ORDERED: morphine 4 MG/ML VIAL IV ONE (01:15)
[2019-03-06 01:19] VITALS: BP 109/56; PULSE 82; RESP 17
[2019-03-06] MEDS: ALPRAZOLAM 0.25 MG TAB PO PRN (03:11)
[2019-03-06] MEDS: PANTOPRAZOLE (EC) 40 MG TAB PO SCH (05:50)
[2019-03-06] MEDS: LEVOTHYROXINE 100 MCG TAB PO SCH (05:50)
[2019-03-06 07:25] VITALS: BP 105/52; PULSE 61; RESP 18
[2019-03-06] MEDS: POLYETHYLENE GLYCOL 17 GM PACKET PO SCH (08:21)
[2019-03-06] MEDS: BACLOFEN 10 MG TAB PO SCH ×2 (08:21→20:48)
[2019-03-06] MEDS: GABAPENTIN 400 MG CAP PO SCH ×3 (08:21→20:48)
[2019-03-06] MEDS: morphine (ER) 30 MG TAB PO SCH ×2 (08:21→20:48)
[2019-03-06] MEDS: NAPROXEN 250 MG TAB PO SCH ×2 (08:21→20:48)
[2019-03-06] MEDS: BALSAM PERU/CASTOR OIL 60 GM TUBE TOP SCH ×2 (08:22→20:53)
[2019-03-06] MEDS: ENOXAPARIN 40 MG/0.4 ML SYG SC SCH (08:23)
[2019-03-06] MEDS: HYDROCODONE/APAP (5/325) TAB PO PRN ×2 (12:46→22:58)
[2019-03-06 14:00] VITALS: BP 97/45; PULSE 75; RESP 18
--- NOTE | 2019-03-06 14:10 | PN ---
Date/Time of Note Date/Time of Note DATE: 03/06/19 TIME: 14:08 Assessment/Plan VTE Prophylaxis Risk score (from [facility] [place] [facility])>0 risk: 3 SCD applied (from [facility] [place] [facility]): Yes Pharmacological prophylaxis: LMWH Lines/Catheters IV Catheter Type (from [facility]): [place] Urinary Cath still in place: No (condom cath) Assessment/Plan Hospital Course SUBJECTIVE: c/p pain w/urination.no fevers.. OBJECTIVE: Vital signs-see below PHYSICAL EXAM: Constitutional: Adequately built,not in acute distress. HEENT: Head atraumatic and normocephalic. Eyes: Extraocular muscles intact. A nicteric sclerae. Pupils equal bilaterally, reactive to light. NECK: Supple without lymph node. CHEST: Clear and good breath sounds equally. No wheezing. No rhonchi. HEART: S1, S2. Regular rate and rhythm. ABDOMEN: Soft/non tender with no rebound tenderness. Bowel sounds were present. EXTREMITIES: No cyanosis, clubbing or edema. NEUROLOGIC: Alert and oriented x3. No focal deficit. No sensory deficit. PSYCHOSOCIAL: No signs of depression. INTEGUMENTARY: No open wounds. ASSESSMENT AND PLAN:49 yo M w/C spine fracture,s/p surgery admitted w/R leg cellulitis and numbness.. Right lower extremity cellulitis -stable, continue wound care UTI,recurrent -Patient recently completed a course of antimicrobial and repeat culture shows Pseudomonas in the setting of dysuria. At this time, we recommend giving a full course of p.o. Cipro. 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 Hepatitis C -Outpt f/u recommended DVT GI prophylaxis: Lovenox Disposition: Patient homeless. No prison available to accept him. At this time, case management/social work manager for appropriate disposition Patient was seen in collaboration with Dr. Eastman. Exam/Review of Systems Exam Vitals Vital Signs Date Temp Pulse Resp B/P (MAP) Pulse Ox O2 O2 Flow FiO2 Time Delivery Rate 03/06/19 97.7 61 18 105/52 96 Room Air 07:25 (69) Intake and Output 03/05/19 03/05/19 03/06/19 1515:00 23:00 07:00 IntakeIntake Total 780 ml 240 ml 480 ml OutputOutput Total 2000 ml 300 ml 1400 ml BalanceBalance -1220 ml -60 ml -920 ml Medications Medication Current Medications IV Flush (NS 3 ml) 3 ml PER PROTOCOL IV Last administered on 02/24/19 16:48; Admin Dose 3 ML; Start 02/10/19 at 23:00 Ondansetron HCl (Zofran Inj) 4 mg Q6H PRN IV NAUSEA/VOMITING Last administered on 02/23/19 00:54; Admin Dose 4 MG; Start 02/10/19 at 23:00 Acetaminophen (Tylenol Tab) 650 mg Q6H PRN PO .PAIN 1-3 OR TEMP Last administered on 03/03/19 17:13; Admin Dose 650 MG; Start 02/10/19 at 23:00 Docusate Sodium (Colace) 100 mg Q12H PRN PO .CONSTIPATION Last administered on 03/01/19 22:52; Admin Dose 100 MG; Start 02/10/19 at 23:00 Bisacodyl (Dulcolax) 5 mg DAILY PRN PO .CONSTIPATION Last administered on 03/05/19 21:43; Admin Dose 5 MG; Start 02/10/19 at 23:00 Enoxaparin Sodium (Lovenox) 40 mg DAILY SC Last administered on 03/06/19 08:23; Admin Dose 40 MG; Start 02/11/19 at 09:00 Morphine Sulfate (Ms Contin (Er)) 30 mg BID PO Last administered on 03/06/19 08:21; Admin Dose 30 MG; Start 02/10/19 at 23:30 [facility]isc[facility] This patient oliveros... PRN PRN XX WOUND CARE; Start 02/11/19 at 05:00 Baclofen (Lioresal) 40 mg BID PO Last administered on 03/06/19 08:21; Admin Dose 40 MG; Start 02/11/19 at 21:00 Levothyroxine Sodium (Synthroid) 100 mcg DAILY@06 PO Last administered on 03/06/19 05:50; Admin Dose 100 MCG; Start 02/12/19 at 14:00 Polyethylene Glycol (Miralax) 17 gm DAILY PO Last administered on 03/06/19 08:21; Admin Dose 17 GM; Start 02/13/19 at 12:00 Bisacodyl (Dulcolax Supp) 10 mg DAILY PRN [place] CONSTIPATION Last administered on 02/19/19at 00:01; Admin Dose 10 MG; Start 02/19/19 at 00:00 Sodium Biphosphate/ Sodium Phosphate (Fleet Enema) 133 ml DAILY PRN [place] CONSTIPATION; Start 02/19/19 at 15:00 Naproxen (Naprosyn) 250 mg BID PO Last administered on 03/06/19 08:21; Admin Dose 250 MG; Start 02/26/19 at 10:30 Pantoprazole (Protonix Tab) 40 mg DAILY@06 PO Last administered on 03/06/19 05:50; Admin Dose 40 MG; Start 02/27/19 at 06:00 Alprazolam (Xanax) 0.25 mg HS PRN PO ANXIETY Last administered on 03/06/19 03:11; Admin Dose 0.25 MG; Start 02/26/19 at 16:00 Gabapentin (Neurontin) 800 mg TID PO Last administered on 03/06/19 12:46; Admin Dose 800 MG; Start 03/01/19 at 13:00 Nortriptyline HCl (Aventyl) 25 mg HS PO Last administered on 03/05/19 20:13; Admin Dose 25 MG; Start 03/01/19 at 21:00 Acetaminophen/ Hydrocodone Bitart ([place] (5/325)) 1 tab Q6H PRN PO MODERATE PAIN LEVEL 4-6 Last administered on 03/06/19 12:46; Admin Dose 1 TAB; Start 03/02/19 at 13:00 BIA BRAUN NP Mar 06, 2019 14:10
[2019-03-06 20:12] VITALS: BP 128/60; PULSE 77; RESP 18
[2019-03-06] MEDS: NORTRIPTYLINE 25 MG CAP PO SCH (20:48)
[2019-03-06] MEDS: CIPROFLOXACIN 500 MG TAB PO SCH (20:48)
[2019-03-07] MEDS: ALPRAZOLAM 0.25 MG TAB PO PRN (00:59)
[2019-03-07 02:17] VITALS: BP 118/59; PULSE 69; RESP 18
[2019-03-07 02:28] VITALS: BP 169/77; PULSE 71; RESP 18
[2019-03-07] MEDS: PANTOPRAZOLE (EC) 40 MG TAB PO SCH (05:15)
[2019-03-07] MEDS: LEVOTHYROXINE 100 MCG TAB PO SCH (05:15)
[2019-03-07] MEDS: CIPROFLOXACIN 500 MG TAB PO SCH ×2 (05:15→17:45)
[2019-03-07 07:26] VITALS: BP 120/53; PULSE 60; RESP 18
[2019-03-07] MEDS: GABAPENTIN 400 MG CAP PO SCH ×3 (09:30→20:35)
[2019-03-07] MEDS: BACLOFEN 10 MG TAB PO SCH ×2 (09:30→20:35)
[2019-03-07] MEDS: NAPROXEN 250 MG TAB PO SCH ×2 (09:30→20:35)
[2019-03-07] MEDS: morphine (ER) 30 MG TAB PO SCH ×2 (09:30→20:35)
[2019-03-07] MEDS: POLYETHYLENE GLYCOL 17 GM PACKET PO SCH (09:31)
[2019-03-07] MEDS: BALSAM PERU/CASTOR OIL 60 GM TUBE TOP SCH ×2 (09:31→20:39)
[2019-03-07] MEDS: ENOXAPARIN 40 MG/0.4 ML SYG SC SCH (09:32)
[2019-03-07] MEDS: HYDROCODONE/APAP (5/325) TAB PO PRN ×2 (09:33→15:49)
--- NOTE | 2019-03-07 12:24 | PDOCDIS ---
Discharge Instructions CONDITION [id number] Patient Condition: [id number] Stable HOME CARE INSTRUCTIONS: [id number] Diet Instructions: [id number] Regular ACTIVITY: [id number] Activity Restrictions: [id number] No Restrictions [id number] Bathing Restrictions: [id number] Sponge Bath FOLLOW UP/APPOINTMENTS Follow-up Plan 1.YOU HAVE RECEIVED A MEDICAL TREATMENT AT [facility] AND YOUR CONDITION IS STABLE AND CAN BE FOLLOWED UP OUTPATIENT. FURTHER FOLLOW-UPS CAN WAIT UNTIL YOU ARE SEEN IN YOUR DOCTORS OFFICE WITHIN THE NEXT 1-2 DAYS. IT IS YOUR RESPONSIBILITY TO MAKE AN APPOINTMENT FOR FOLOW-UP CARE. IF YOU HAVE A PRIMARY DOCTOR --you should call your primary doctor in 1-2 days and schedule an appointment IF YOU DO NOT HAVE A PRIMARY DOCTOR YOU CAN CALL OUR PHYSICIAN REFERRAL HOTLINE AT IF YOU CAN NOT AFFORD TO SEE A PHYSICIAN YOU CAN CHOSE FROM THE FOLLOWING [facility] [address] [facility] [facility] [address] [facility] [facility] [address] [facility] [address] [facility] [address] [facility]. [facility]. [address]. Call 911 or go to the nearest emergency room if experiencing loss of consciousness, dizziness, chest pain, shortness of breath, vomiting/abdominal pain, speech difficulties, motor weakness or any unusual symptoms. BIA BRAUN NP Mar 07, 2019 12:24
--- NOTE | 2019-03-07 12:31 | PN ---
Date/Time of Note Date/Time of Note DATE: 03/07/19 TIME: 12:26 Assessment/Plan VTE Prophylaxis Risk score (from Ns)>0 risk: 3 SCD applied (from Ns): Yes Pharmacological prophylaxis: LMWH Lines/Catheters IV Catheter Type (from [facility]): Peripheral IV Urinary Cath still in place: No (condom cath) Assessment/Plan Hospital Course SUBJECTIVE: refused to be dcd to a recuperative center yesterday and patient himself called the recuperative center indicating that he is not stable enough to go there. OBJECTIVE: Vital signs-see below PHYSICAL EXAM: Constitutional: Adequately built,not in acute distress. HEENT: Head atraumatic and normocephalic. Eyes: Extraocular muscles intact. Ani cteric sclerae. Pupils equal bilaterally, reactive to light. NECK: Supple without lymph node. CHEST: Clear and good breath sounds equally. No wheezing. No rhonchi. HEART: S1, S2. Regular rate and rhythm. ABDOMEN: Soft/non tender with no rebound tenderness. Bowel sounds were present. EXTREMITIES: No cyanosis, clubbing or edema. NEUROLOGIC: Alert and oriented x3. No focal deficit. No sensory deficit. PSYCHOSOCIAL: No signs of depression. INTEGUMENTARY: No open wounds. ASSESSMENT AND PLAN:49 yo M w/C spine fracture,s/p surgery admitted w/R leg cellulitis and numbness.. Right lower extremity cellulitis -stable, continue wound care UTI,recurrent -Patient recently completed a course of antimicrobial and repeat culture shows Pseudomonas in the setting of dysuria. At this time, we recommend giving a full course of p.o. Cipro. 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 Hepatitis C -Outpt f/u recommended DVT GI prophylaxis: Lovenox Disposition: Overall, patient is homeless and he needs assistance with his activities. He is wheelchair bounded. As the plan was to discharge patient to a recuperative center yesterday, he himself called the center indicate that he does not think he is stable enough to go to a recuperative center. As such, right now there is no place to take him. Please note that this patient also had filed a grievance in multiple places where he used to be and none of these facilities are now willing to take him back. Patient is very unhappy with [facility] staff, case management, and overall, patient complains about everything. At this time, I will reorder physical therapy reevaluation to make sure patient functional status is updated to redetermine appropriate placement. Patient was seen in collaboration with Dr. Johnson Exam/Review of Systems Exam Vitals Vital Signs Date Temp Pulse Resp B/P (MAP) Pulse Ox O2 O2 Flow FiO2 Time Delivery Rate 03/07/19 97.5 60 18 120/53 94 Room Air 07:26 (75) Intake and Output 03/06/19 03/06/19 03/07/19 1515:00 23:00 07:00 IntakeIntake Total 200 ml OutputOutput Total 400 ml 1500 ml BalanceBalance -200 ml -1500 ml Medications Medication Current Medications IV Flush (NS 3 ml) 3 ml PER PROTOCOL IV Last administered on 02/24/19 16:48; Admin Dose 3 ML; Start 02/10/19 at 23:00 Ondansetron HCl (Zofran Inj) 4 mg Q6H PRN IV NAUSEA/VOMITING Last administered on 02/23/19 00:54; Admin Dose 4 MG; Start 02/10/19 at 23:00 Acetaminophen (Tylenol Tab) 650 mg Q6H PRN PO .PAIN 1-3 OR TEMP Last administered on 03/03/19 17:13; Admin Dose 650 MG; Start 02/10/19 at 23:00 Docusate Sodium (Colace) 100 mg Q12H PRN PO .CONSTIPATION Last administered on 03/01/19 22:52; Admin Dose 100 MG; Start 02/10/19 at 23:00 Bisacodyl (Dulcolax) 5 mg DAILY PRN PO .CONSTIPATION Last administered on 03/05/19 21:43; Admin Dose 5 MG; Start 02/10/19 at 23:00 Enoxaparin Sodium (Lovenox) 40 mg DAILY SC Last administered on 03/07/19 09:32; Admin Dose 40 MG; Start 02/11/19 at 09:00 Morphine Sulfate (Ms Contin (Er)) 30 mg BID PO Last administered on 03/07/19 09:30; Admin Dose 30 MG; Start 02/10/19 at 23:30 [facility] This patient oliveros... PRN PRN XX WOUND CARE; Start 02/11/19 at 05:00 Baclofen (Lioresal) 40 mg BID PO Last administered on 03/07/19 09:30; Admin Dose 40 MG; Start 02/11/19 at 21:00 Levothyroxine Sodium (Synthroid) 100 mcg DAILY@06 PO Last administered on 03/07/19 05:15; Admin Dose 100 MCG; Start 02/12/19 at 14:00 Polyethylene Glycol (Miralax) 17 gm DAILY PO Last administered on 03/07/19 09:31; Admin Dose 17 GM; Start 02/13/19 at 12:00 Bisacodyl (Dulcolax Supp) 10 mg DAILY PRN [place] CONSTIPATION Last administered on 02/19/19at 00:01; Admin Dose 10 MG; Start 02/19/19 at 00:00 Sodium Biphosphate/ Sodium Phosphate (Fleet Enema) 133 ml DAILY PRN [place] CONSTIPATION; Start 02/19/19 at 15:00 Naproxen (Naprosyn) 250 mg BID PO Last administered on 03/07/19 09:30; Admin Dose 250 MG; Start 02/26/19 at 10:30 Pantoprazole (Protonix Tab) 40 mg DAILY@06 PO Last administered on 03/07/19 05:15; Admin Dose 40 MG; Start 02/27/19 at 06:00 Alprazolam (Xanax) 0.25 mg HS PRN PO ANXIETY Last administered on 03/07/19 00:59; Admin Dose 0.25 MG; Start 02/26/19 at 16:00 Gabapentin (Neurontin) 800 mg TID PO Last administered on 03/07/19 09:30; Admin Dose 800 MG; Start 03/01/19 at 13:00 Nortriptyline HCl (Aventyl) 25 mg HS PO Last administered on 03/06/19 20:48; Admin Dose 25 MG; Start 03/01/19 at 21:00 Acetaminophen/ Hydrocodone Bitart ([place] (5/325)) 1 tab Q6H PRN PO MODERATE PAIN LEVEL 4-6 Last administered on 03/07/19at 09:33; Admin Dose 1 TAB; Start 03/02/19 at 13:00 Ciprofloxacin (Cipro) 500 mg BID@06,18 PO Last administered on 03/07/19at 05:15; Admin Dose 500 MG; Start 03/06/19 at 18:00; Stop 03/16/19 at 17:59 BIA BRAUN NP Mar 07, 2019 12:31
[2019-03-07 13:30] VITALS: BP 117/55; PULSE 64; RESP 18
[2019-03-07 19:31] VITALS: BP 117/56; PULSE 79; RESP 17
[2019-03-07] MEDS: NORTRIPTYLINE 25 MG CAP PO SCH (20:36)
[2019-03-08] MEDS ORDERED: morphine 4 MG/ML VIAL IV ONE (00:05)
[2019-03-08] MEDS: ALPRAZOLAM 0.25 MG TAB PO PRN (00:55)
[2019-03-08 01:16] VITALS: BP 126/61; PULSE 78; RESP 16
[2019-03-08] MEDS: HYDROCODONE/APAP (5/325) TAB PO PRN ×2 (02:30→15:27)
[2019-03-08] MEDS: LEVOTHYROXINE 100 MCG TAB PO SCH (06:34)
[2019-03-08] MEDS: CIPROFLOXACIN 500 MG TAB PO SCH ×2 (06:34→17:38)
[2019-03-08] MEDS: PANTOPRAZOLE (EC) 40 MG TAB PO SCH (06:34)
[2019-03-08 07:37] VITALS: BP 112/53; PULSE 63; RESP 16
[2019-03-08] MEDS ORDERED: BENZOCAINE 10% 7 GM GEL MM PRN (08:00)
[2019-03-08] MEDS: BACLOFEN 10 MG TAB PO SCH ×2 (09:00→20:49)
[2019-03-08] MEDS: ENOXAPARIN 40 MG/0.4 ML SYG SC SCH (09:04)
[2019-03-08] MEDS: GABAPENTIN 400 MG CAP PO SCH ×3 (09:05→20:49)
[2019-03-08] MEDS: morphine (ER) 30 MG TAB PO SCH ×2 (09:05→20:49)
[2019-03-08] MEDS: NAPROXEN 250 MG TAB PO SCH ×2 (09:05→20:49)
[2019-03-08] MEDS: BALSAM PERU/CASTOR OIL 60 GM TUBE TOP SCH ×2 (09:05→20:50)
[2019-03-08] MEDS: POLYETHYLENE GLYCOL 17 GM PACKET PO SCH (09:05)
--- NOTE | 2019-03-08 10:51 | PN ---
Date/Time of Note Date/Time of Note DATE: 03/08/19 TIME: 10:48 Assessment/Plan VTE Prophylaxis Risk score (from [facility])>0 risk: 6 SCD applied (from [facility]): No SCD contraindicated: other Pharmacological prophylaxis: LMWH Lines/Catheters IV C[facility] Type (from [facility] [place] Urinary Cath still in place: No (condom cath) Assessment/Plan Hospital Course SUBJECTIVE: No acute episodes OBJECTIVE: Vital signs-see below PHYSICAL EXAM: Constitutional: Adequately built,not in acute distress. HEENT: Head atraumatic and normocephalic. Eyes: Extraocular muscles intact. Anicteric sclerae. Pupils equal bilaterally, reactive to light. NECK: Supple without lymph node. CHEST: Clear and good breath sounds equally. No wheezing. No rhonchi. HEART: S1, S2. Regular rate and rhythm. ABDOMEN: Soft/non tender with no rebound tenderness. Bowel sounds were present. EXTREMITIES: No cyanosis, clubbing or edema. NEUROLOGIC: Alert and oriented x3. No focal deficit. No sensory deficit. PSYCHOSOCIAL: No signs of depression. INTEGUMENTARY: No open wounds. ASSESSMENT AND PLAN:49 yo M w/C spine fracture,s/p surgery admitted w/R leg cellulitis and numbness.. Right lower extremity cellulitis -stable, continue wound care UTI,recurrent -Patient recently completed a course of antimicrobial and repeat culture shows Pseudomonas in the setting of dysuria. At this time, we recommend giving a full course of p.o. Cipro. 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 Hepatitis C -Outpt f/u recommended DVT GI prophylaxis: Lovenox Disposition: Overall, patient is homeless and he needs assistance with his activities. He is paraplegic and wheelchair bounded. As the plan was to disc harge patient to a recuperative center yesterday, he himself called the center indicate that he does not think he is stable enough to go to a recuperative center. He reports inability to transfer from bed to wheelchair without help to be discharged with recuperative center. Pending physical therapy reevaluation to redetermine patient's functional status/transfer capability to redetermine appropriate placement. Please note that this patient also had filed a grievance in multiple places where he used to be and none of these facilities are now willing to take him back. Patient is very unhappy with [facility] staff, case management, and overall, patient complains about everything. This also putting a lot of barriers to place him. Patient was seen in collaboration with Dr. Johnson Exam/Review of Systems Exam Vitals Vital Signs Date Temp Pulse Resp B/P (MAP) Pulse Ox O2 O2 Flow FiO2 Time Delivery Rate 03/08/19 98.3 63 16 112/53 95 07:37 (72) 03/07/19 Room Air 13:30 Intake and Output 03/07/19 03/07/19 03/08/19 1515:00 23:00 07:00 IntakeIntake Total 500 ml 300 ml OutputOutput Total 1400 ml BalanceBalance -900 ml 300 ml Medications Medication Current Medications IV Flush (NS 3 ml) 3 ml PER PROTOCOL IV Last administered on 02/24/19 16:48; Admin Dose 3 ML; Start 02/10/19 at 23:00 Ondansetron HCl (Zofran Inj) 4 mg Q6H PRN IV NAUSEA/VOMITING Last administered on 02/23/19 00:54; Admin Dose 4 MG; Start 02/10/19 at 23:00 Acetaminophen (Tylenol Tab) 650 mg Q6H PRN PO .PAIN 1-3 OR TEMP Last administered on 03/03/19 17:13; Admin Dose 650 MG; Start 02/10/19 at 23:00 Docusate Sodium (Colace) 100 mg Q12H PRN PO .CONSTIPATION Last administered on 03/01/19 22:52; Admin Dose 100 MG; Start 02/10/19 at 23:00 Bisacodyl (Dulcolax) 5 mg DAILY PRN PO .CONSTIPATION Last administered on 03/05/19 21:43; Admin Dose 5 MG; Start 02/10/19 at 23:00 Enoxaparin Sodium (Lovenox) 40 mg DAILY SC Last administered on 03/08/19 09:04; Admin Dose 40 MG; Start 02/11/19 at 09:00 Morphine Sulfate (Ms Contin (Er)) 30 mg BID PO Last administered on 03/08/19 09:05; Admin Dose 30 MG; Start 02/10/19 at 23:30 Miscellaneous Information (Pending [place] Order For Wound Care) This patient oliveros... PRN PRN XX WOUND CARE; Start 02/11/19 at 05:00 Baclofen (Lioresal) 40 mg BID PO Last administered on 03/07/19 20:35; Admin Dose 40 MG; Start 02/11/19 at 21:00 Levothyroxine Sodium (Synthroid) 100 mcg DAILY@06 PO Last administered on 03/08/19 06:34; Admin Dose 100 MCG; Start 02/12/19 at 14:00 Polyethylene Glycol (Miralax) 17 gm DAILY PO Last administered on 03/08/19 09:05; Admin Dose 17 GM; Start 02/13/19 at 12:00 Bisacodyl (Dulcolax Supp) 10 mg DAILY PRN [place] CONSTIPATION Last administered on 02/19/19 00:01; Admin Dose 10 MG; Start 02/19/19 at 00:00 Sodium Biphosphate/ Sodium Phosphate (Fleet Enema) 133 ml DAILY PRN [place] CONSTIPATION; Start 02/19/19 at 15:00 Naproxen (Naprosyn) 250 mg BID PO Last administered on 03/08/19 09:05; Admin Dose 250 MG; Start 02/26/19 at 10:30 Pantoprazole (Protonix Tab) 40 mg DAILY@06 PO Last administered on 03/08/19 06:34; Admin Dose 40 MG; Start 02/27/19 at 06:00 Alprazolam (Xanax) 0.25 mg HS PRN PO ANXIETY Last administered on 03/08/19 00:55; Admin Dose 0.25 MG; Start 02/26/19 at 16:00 Gabapentin (Neurontin) 800 mg TID PO Last administered on 03/08/19 09:05; Admin Dose 800 MG; Start 03/01/19 at 13:00 Nortriptyline HCl (Aventyl) 25 mg HS PO Last administered on 03/07/19 20:36; Admin Dose 25 MG; Start 03/01/19 at 21:00 Acetaminophen/ Hydrocodone Bitart ([place] (5/325)) 1 tab Q6H PRN PO MODERATE PAIN LEVEL 4-6 Last administered on 03/08/19at 02:30; Admin Dose 1 TAB; Start 03/02/19 at 13:00 Ciprofloxacin (Cipro) 500 mg BID@06,18 PO Last administered on 03/08/19at 06:34; Admin Dose 500 MG; Start 03/06/19 at 18:00; Stop 03/16/19 at 17:59 Benzocaine (Orajel) 1 applic TID PRN MM PAIN; Start 03/08/19 at 08:00 BIA BRAUN NP Mar 08, 2019 10:51
[2019-03-08 13:10] VITALS: BP 115/54; PULSE 76; RESP 18
[2019-03-08 20:16] VITALS: BP 115/55; PULSE 79; RESP 19
[2019-03-08] MEDS: NORTRIPTYLINE 25 MG CAP PO SCH (20:49)
[2019-03-09] MEDS: ALPRAZOLAM 0.25 MG TAB PO PRN ×2 (00:13→23:43)
[2019-03-09] MEDS: HYDROCODONE/APAP (5/325) TAB PO PRN ×3 (00:13→23:43)
[2019-03-09 02:11] VITALS: BP 122/68; PULSE 81; RESP 17
[2019-03-09] MEDS: CIPROFLOXACIN 500 MG TAB PO SCH ×2 (05:31→17:55)
[2019-03-09] MEDS: LEVOTHYROXINE 100 MCG TAB PO SCH (05:31)
[2019-03-09] MEDS: PANTOPRAZOLE (EC) 40 MG TAB PO SCH (05:31)
[2019-03-09 08:30] VITALS: BP 99/52; PULSE 77; RESP 18
[2019-03-09] MEDS: POLYETHYLENE GLYCOL 17 GM PACKET PO SCH (09:21)
[2019-03-09] MEDS: BACLOFEN 10 MG TAB PO SCH ×2 (09:21→20:13)
[2019-03-09] MEDS: morphine (ER) 30 MG TAB PO SCH ×2 (09:22→20:13)
[2019-03-09] MEDS: NAPROXEN 250 MG TAB PO SCH ×2 (09:23→20:13)
[2019-03-09] MEDS: GABAPENTIN 400 MG CAP PO SCH ×3 (09:23→20:13)
[2019-03-09] MEDS: ENOXAPARIN 40 MG/0.4 ML SYG SC SCH (09:25)
[2019-03-09] MEDS: BALSAM PERU/CASTOR OIL 60 GM TUBE TOP SCH ×2 (09:26→20:14)
--- NOTE | 2019-03-09 12:18 | PN ---
Date/Time of Note Date/Time of Note DATE: 03/09/19 TIME: 12:16 Assessment/Plan VTE Prophylaxis Risk score (from Ns)>0 risk: 4 SCD applied (from [facility] No SCD contraindicated: other Pharmacological prophylaxis: LMWH Lines/Catheters IV Catheter Type (from [facility]): [place] Urinary Cath still in place: No (condom cath) Assessment/Plan Hospital Course SUBJECTIVE: Patient refused to be placed to recuperative center. 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 OBJECTIVE: Vital signs-see below PHYSICAL EXAM: Constitutional: Adequately built,not in acute distress. HEENT: Head atraumatic and normocephalic. Eyes: Extraocular muscles intact. Anicteric sclerae. Pupils equal bilaterally, reactive to light. NECK: Supple without lymph node. CHEST: Clear and good breath sounds equally. No wheezing. No rhonchi. HEART: S1, S2. Regular rate and rhythm. ABDOMEN: Soft/non tender with no rebound tenderness. Bowel sounds were present. EXTREMITIES: No cyanosis, clubbing or edema. NEUROLOGIC: Alert and oriented x3. No focal deficit. No sensory deficit. PSYCHOSOCIAL: No signs of depression. INTEGUMENTARY: No open wounds. ASSESSMENT AND PLAN:49 yo M w/C spine fracture,s/p surgery admitted w/R leg cellulitis and numbness.. Right lower extremity cellulitis -stable, continue wound care UTI,recurrent -Patient recently completed a course of antimicrobial and repeat culture shows Pseudomonas in the setting of dysuria. Cont p.o. Cipro.w/stop date on it. 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 Hepatitis C -Outpt f/u recommended DVT GI prophylaxis: Lovenox Disposition: Overall, patient is homeless and he needs assistance with his activ ities. He is paraplegic and wheelchair bounded. As the plan was to discharge patient to a recuperative center yesterday, he himself called the center indicate that he does not think he is stable enough to go to a recuperative center. He reports inability to transfer from bed to wheelchair without help to be discharged with recuperative center. Pending physical therapy reevaluation to redetermine patient's functional status/transfer capability to redetermine appropriate placement. Please note that this patient also had filed a grievance in multiple places where he used to be and none of these facilities are now willing to take him back. Patient is very unhappy with [facility] staff, case management, and overall, patient complains about everything. This also putting a lot of barriers to place him. Update 03/09/2019: Thus far, patient has been reevaluated by physical therapist. However, official PT note is pending which we will follow-up. Patient was seen in collaboration with Dr. Eastman Exam/Review of Systems Exam Vitals Vital Signs Date Temp Pulse Resp B/P (MAP) Pulse Ox O2 O2 Flow FiO2 Time Delivery Rate 03/09/19 97.2 77 18 99/52 (68) 94 08:30 03/07/19 Room Air 13:30 Intake and Output 03/08/19 03/08/19 03/09/19 1515:00 23:00 07:00 IntakeIntake Total 1380 ml 800 ml 480 ml OutputOutput Total 1500 ml 400 ml 1325 ml BalanceBalance -120 ml 400 ml -845 ml Medications Medication Current Medications IV Flush (NS 3 ml) 3 ml PER PROTOCOL IV Last administered on 02/24/19at 16:48; Admin Dose 3 ML; Start 02/10/19 at 23:00 Ondansetron HCl (Zofran Inj) 4 mg Q6H PRN IV NAUSEA/VOMITING Last administered on 02/23/19at 00:54; Admin Dose 4 MG; Start 02/10/19 at 23:00 Acetaminophen (Tylenol Tab) 650 mg Q6H PRN PO .PAIN 1-3 OR TEMP Last administered on 03/03/19at 17:13; Admin Dose 650 MG; Start 02/10/19 at 23:00 Docusate Sodium (Colace) 100 mg Q12H PRN PO .CONSTIPATION Last administered on 03/01/19at 22:52; Admin Dose 100 MG; Start 02/10/19 at 23:00 Bisacodyl (Dulcolax) 5 mg DAILY PRN PO .CONSTIPATION Last administered on 03/05/19 21:43; Admin Dose 5 MG; Start 02/10/19 at 23:00 Enoxaparin Sodium (Lovenox) 40 mg DAILY SC Last administered on 03/09/19 09:25; Admin Dose 40 MG; Start 02/11/19 at 09:00 Morphine Sulfate (Ms Contin (Er)) 30 mg BID PO Last administered on 03/09/19 09:22; Admin Dose 30 MG; Start 02/10/19 at 23:30 Miscellaneous Information (Pending [place] Order For Wound Care) This patient oliveros... PRN PRN XX WOUND CARE; Start 02/11/19 at 05:00 Baclofen (Lioresal) 40 mg BID PO Last administered on 03/09/19 09:21; Admin Dose 40 MG; Start 02/11/19 at 21:00 Levothyroxine Sodium (Synthroid) 100 mcg DAILY@06 PO Last administered on 03/09/19 05:31; Admin Dose 100 MCG; Start 02/12/19 at 14:00 Polyethylene Glycol (Miralax) 17 gm DAILY PO Last administered on 03/09/19 09:21; Admin Dose 17 GM; Start 02/13/19 at 12:00 Bisacodyl (Dulcolax Supp) 10 mg DAILY PRN [place] CONSTIPATION Last administered on 02/19/19 00:01; Admin Dose 10 MG; Start 02/19/19 at 00:00 Sodium Biphosphate/ Sodium Phosphate (Fleet Enema) 133 ml DAILY PRN [place] CONSTIPATION; Start 02/19/19 at 15:00 Naproxen (Naprosyn) 250 mg BID PO Last administered on 03/09/19 09:23; Admin Dose 250 MG; Start 02/26/19 at 10:30 Pantoprazole (Protonix Tab) 40 mg DAILY@06 PO Last administered on 03/09/19 05:31; Admin Dose 40 MG; Start 02/27/19 at 06:00 Alprazolam (Xanax) 0.25 mg HS PRN PO ANXIETY Last administered on 03/09/19 00:13; Admin Dose 0.25 MG; Start 02/26/19 at 16:00 Gabapentin (Neurontin) 800 mg TID PO Last administered on 03/09/19 09:23; Admin Dose 800 MG; Start 03/01/19 at 13:00 Nortriptyline HCl (Aventyl) 25 mg HS PO Last administered on 03/08/19at 20:49; Admin Dose 25 MG; Start 03/01/19 at 21:00 Acetaminophen/ Hydrocodone Bitart ([place] (5/325)) 1 tab Q6H PRN PO MODERATE [place]ANJA N LEVEL 4-6 Last administered on 03/09/19at 11:09; Admin Dose 1 TAB; Start 03/02/19 at 13:00 Ciprofloxacin (Cipro) 500 mg BID@06,18 PO Last administered on 03/09/19 05:31; Admin Dose 500 MG; Start 03/06/19 at 18:00; Stop 03/16/19 at 17:59 Benzocaine (Orajel) 1 applic TID PRN MM PAIN; Start 03/08/19 at 08:00 BIA BRAUN NP Mar 09, 2019 12:18
[2019-03-09 14:39] VITALS: BP 101/51; PULSE 83; RESP 17
[2019-03-09] MEDS: NORTRIPTYLINE 25 MG CAP PO SCH (20:14)
[2019-03-09 20:28] VITALS: BP 116/50; PULSE 90; RESP 19
[2019-03-10 01:01] VITALS: BP 93/48; PULSE 97; RESP 16
[2019-03-10] MEDS: PANTOPRAZOLE (EC) 40 MG TAB PO SCH (06:17)
[2019-03-10] MEDS: LEVOTHYROXINE 100 MCG TAB PO SCH (06:17)
[2019-03-10] MEDS: CIPROFLOXACIN 500 MG TAB PO SCH ×2 (06:17→17:42)
[2019-03-10 08:19] VITALS: BP 112/55; PULSE 73; RESP 18
[2019-03-10] MEDS: BACLOFEN 10 MG TAB PO SCH ×2 (08:43→20:38)
[2019-03-10] MEDS: GABAPENTIN 400 MG CAP PO SCH ×3 (08:44→20:38)
[2019-03-10] MEDS: morphine (ER) 30 MG TAB PO SCH ×2 (08:45→20:38)
[2019-03-10] MEDS: POLYETHYLENE GLYCOL 17 GM PACKET PO SCH (08:45)
[2019-03-10] MEDS: NAPROXEN 250 MG TAB PO SCH ×2 (08:45→20:36)
[2019-03-10] MEDS: ENOXAPARIN 40 MG/0.4 ML SYG SC SCH (08:47)
[2019-03-10] MEDS: BALSAM PERU/CASTOR OIL 60 GM TUBE TOP SCH ×3 (08:50→22:27)
--- NOTE | 2019-03-10 11:12 | PN ---
Date/Time of Note Date/Time of Note DATE: 03/10/19 TIME: 11:09 Assessment/Plan VTE Prophylaxis Risk score (from Ns)>0 risk: 5 SCD applied (from [facility] [place] SCD contraindicated: other Pharmacological prophylaxis: LMWH Lines/Catheters IV Catheter Type (from [facility] [place]): Saline Lock Urinary Cath still in place: No (condom cath) Assessment/Plan Hospital Course SUBJECTIVE: Patient continues to refuse recup center and appealed dc plan. OBJECTIVE: Vital signs-see below PHYSICAL EXAM: Constitutional: Adequately built,not in acute distress. HEENT: Head atraumatic and normocephalic. Eyes: Extraocular muscles intact. Anicteric sclerae. Pupils equal bilaterally, reactive to light. NECK: Supple without lymph node. CHEST: Clear and good breath sounds equally. No wheezing. No rhonchi. HEART: S1, S2. Regular rate and rhythm. ABDOMEN: Soft/non tender with no rebound tenderness. Bowel sounds were present. EXTREMITIES: No cyanosis, clubbing or edema. NEUROLOGIC: Alert and oriented x3. No focal deficit. No sensory deficit. PSYCHOSOCIAL: No signs of depression. INTEGUMENTARY: No open wounds. ASSESSMENT AND PLAN:49 yo M w/C spine fracture,s/p surgery admitted w/R leg cellulitis and numbness.. Right lower extremity cellulitis -stable, continue wound care UTI,recurrent -Patient recently completed a course of antimicrobial and repeat culture shows Pseudomonas in the setting of dysuria. Cont p.o. Cipro.w/stop date on it. 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 Hepatitis C -Outpt f/u recommended DVT GI prophylaxis: Lovenox Disposition: Overall, patient is homeless and he needs assistance with his activities. Per multidisciplinary team assessment, plan was to discharge to [facility]. However, patient appeared discharge and thinks he is not capable of going to work-up center. At this time, case management to check home health assistance at the [facility] for transfers assistance. Please note that this patient also had filed a grievance in multiple places where he used to be and none of these facilities are now willing to take him back. Patient is very unhappy with [facility] staff, case management, and overall, patient complains about everything. This also putting a lot of barriers to place him. Update 03/09/2019: Thus far, patient has been reevaluated by physical therapist. However, official PT note is pending which we will follow-up. Update 03/10/2019: Case management to look for home health option to help with transfer function at [facility]. Patient was seen in collaboration with Dr. Eastman Exam/Review of Systems Exam Vitals Vital Signs Date Temp Pulse Resp B/P (MAP) Pulse Ox O2 O2 Flow FiO2 Time Delivery Rate 03/10/19 97.7 73 18 112/55 94 08:19 (74) 03/10/19 Room Air 01:01 Intake and Output 03/09/19 03/09/19 03/10/19 1515:00 23:00 07:00 IntakeIntake Total 860 ml 400 ml 240 ml OutputOutput Total 1200 ml 700 ml BalanceBalance -340 ml 400 ml -460 ml Medications Medication Current Medications IV Flush (NS 3 ml) 3 ml PER PROTOCOL IV Last administered on 02/24/19 16:48; Admin Dose 3 ML; Start 02/10/19 at 23:00 Ondansetron HCl (Zofran Inj) 4 mg Q6H PRN IV NAUSEA/VOMITING Last administered on 02/23/19at 00:54; Admin Dose 4 MG; Start 02/10/19 at 23:00 Acetaminophen (Tylenol Tab) 650 mg Q6H PRN PO .PAIN 1-3 OR TEMP Last administered on 03/03/19 17:13; Admin Dose 650 MG; Start 02/10/19 at 23:00 Docusate Sodium (Colace) 100 mg Q12H PRN PO .CONSTIPATION Last administered on 03/01/19 22:52; Admin Dose 100 MG; Start 02/10/19 at 23:00 Bisacodyl (Dulcolax) 5 mg DAILY PRN PO .CONSTIPATION Last administered on 03/05/19 21:43; Admin Dose 5 MG; Start 02/10/19 at 23:00 Enoxaparin Sodium (Lovenox) 40 mg DAILY SC Last administered on 03/10/19 08:47; Admin Dose 40 MG; Start 02/11/19 at 09:00 Morphine Sulfate (Ms Contin (Er)) 30 mg BID PO Last administered on 03/10/19 08:45; Admin Dose 30 MG; Start 02/10/19 at 23:30 Miscellaneous [facility] This patient oliveros... PRN PRN XX WOUND CARE; Start 02/11/19 at 05:00 Baclofen (Lioresal) 40 mg BID PO Last administered on 03/10/19 08:43; Admin Dose 40 MG; Start 02/11/19 at 21:00 Levothyroxine Sodium (Synthroid) 100 mcg DAILY@06 PO Last administered on 03/10/19 06:17; Admin Dose 100 MCG; Start 02/12/19 at 14:00 Polyethylene Glycol (Miralax) 17 gm DAILY PO Last administered on 03/10/19 08:45; Admin Dose 17 GM; Start 02/13/19 at 12:00 Bisacodyl (Dulcolax Supp) 10 mg DAILY PRN [place] CONSTIPATION Last administered on 02/19/19 00:01; Admin Dose 10 MG; Start 02/19/19 at 00:00 Sodium Biphosphate/ Sodium Phosphate (Fleet Enema) 133 ml DAILY PRN [place] CONSTIPATION; Start 02/19/19 at 15:00 Naproxen (Naprosyn) 250 mg BID PO Last administered on 03/10/19 08:45; Admin Dose 250 MG; Start 02/26/19 at 10:30 Pantoprazole (Protonix Tab) 40 mg DAILY@06 PO Last administered on 03/10/19 06:17; Admin Dose 40 MG; Start 02/27/19 at 06:00 Alprazolam (Xanax) 0.25 mg HS PRN PO ANXIETY Last administered on 03/09/19 23:43; Admin Dose 0.25 MG; Start 02/26/19 at 16:00 Gabapentin (Neurontin) 800 mg TID PO Last administered on 03/10/19 08:44; Admin Dose 800 MG; Start 03/01/19 at 13:00 Nortriptyline HCl (Aventyl) 25 mg HS PO Last administered on 03/09/19at 20:14; Admin Dose 25 MG; Start 03/01/19 at 21:00 Acetaminophen/ Hydrocodone Bitart ([place] (5/325)) 1 tab Q6H PRN PO MODERATE PAIN LEVEL 4-6 Last administered on 03/09/19at 23:43; Admin Dose 1 TAB; Start 03/02/19 at 13:00 Ciprofloxacin (Cipro) 500 mg BID@,18 PO Last administered on 03/10/19at 06:17; Admin Dose 500 MG; Start 03/06/19 at 18:00; Stop 03/16/19 at 17:59 Benzocaine (Orajel) 1 applic TID PRN MM PAIN; Start 03/08/19 at 08:00 BIA BRAUN NP Mar 10, 2019 11:12
[2019-03-10] MEDS: HYDROCODONE/APAP (5/325) TAB PO PRN (12:54)
[2019-03-10 13:50] VITALS: BP 125/59; PULSE 81; RESP 18
[2019-03-10 20:09] VITALS: BP 115/58; PULSE 87; RESP 19
[2019-03-10] MEDS: NORTRIPTYLINE 25 MG CAP PO SCH (20:37)
[2019-03-10] MEDS: morphine 2 MG INJ IV PRN (22:36)
[2019-03-10] MEDS: ALPRAZOLAM 0.25 MG TAB PO PRN (23:57)
[2019-03-11 02:07] VITALS: BP 104/51; PULSE 20; PULSE 85; RESP 20
[2019-03-11] MEDS: HYDROCODONE/APAP (5/325) TAB PO PRN ×3 (04:26→23:20)
[2019-03-11] MEDS: CIPROFLOXACIN 500 MG TAB PO SCH ×2 (05:22→17:20)
[2019-03-11] MEDS: PANTOPRAZOLE (EC) 40 MG TAB PO SCH (05:22)
[2019-03-11] MEDS: LEVOTHYROXINE 100 MCG TAB PO SCH (05:22)
[2019-03-11 08:00] VITALS: BP 115/55; PULSE 67; RESP 18
[2019-03-11] MEDS: NAPROXEN 250 MG TAB PO SCH ×2 (08:31→20:36)
[2019-03-11] MEDS: GABAPENTIN 400 MG CAP PO SCH ×3 (08:31→20:36)
[2019-03-11] MEDS: POLYETHYLENE GLYCOL 17 GM PACKET PO SCH (08:31)
[2019-03-11] MEDS: morphine (ER) 30 MG TAB PO SCH ×2 (08:31→20:36)
[2019-03-11] MEDS: ENOXAPARIN 40 MG/0.4 ML SYG SC SCH (08:34)
[2019-03-11] MEDS: BALSAM PERU/CASTOR OIL 60 GM TUBE TOP SCH ×2 (08:36→20:39)
[2019-03-11] MEDS: BACLOFEN 10 MG TAB PO SCH ×2 (09:37→20:36)
--- NOTE | 2019-03-11 12:02 | PN ---
Date/Time of Note Date/Time of Note DATE: 03/11/19 TIME: 12:00 Assessment/Plan VTE Prophylaxis Risk score (from Ns)>0 risk: 5 SCD applied (from Ns): No SCD contraindicated: other Pharmacological prophylaxis: LMWH Lines/Catheters IV [facility]ter Type (from [facility] Saline Lock Urinary Cath still in place: No (condom cath) Assessment/Plan Hospital Course SUBJECTIVE: No acute episodes. OBJECTIVE: Vital signs-see below PHYSICAL EXAM: Constitutional: Adequately built,not in acute distress. HEENT: Head atraumatic and normocephalic. Eyes: Extraocular muscles intact. Anicteric sclerae. Pupils equal bilaterally, reactive to light. NECK: Supple without lymph node. CHEST: Clear and good breath sounds equally. No wheezing. No rhonchi. HEART: S1, S2. Regular rate and rhythm. ABDOMEN: Soft/non tender with no rebound tenderness. Bowel sounds were present. EXTREMITIES: No cyanosis, clubbing or edema. NEUROLOGIC: Alert and oriented x3. No focal deficit. No sensory deficit. PSYCHOSOCIAL: No signs of depression. INTEGUMENTARY: No open wounds. ASSESSMENT AND PLAN:49 yo M w/C spine fracture,s/p surgery admitted w/R leg cellulitis and numbness.. Right lower extremity cellulitis -stable, continue wound care UTI,recurrent -Patient recently completed a course of antimicrobial and repeat culture shows Pseudomonas in the setting of dysuria. Cont p.o. Cipro.w/stop date on it. 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 Hepatitis C -Outpt f/u recommended DVT GI prophylaxis: Lovenox Disposition: Overall, patient is homeless and he needs assistance with his activities. Per multidisciplinary team assessment, plan was to discharge to [facility]. However, patient appeared discharge and thinks he is not capable of going to work-up center. At this time, case management to check home health assistance at the [facility] center for transfers assistance. Please note that this patient also had filed a grievance in multiple places where he used to be and none of these facilities are now willing to take him back. Patient is very unhappy with [facility] staff, case management, and overall, patient complains about everything. This also putting a lot of barriers to place him. Update 03/09/2019: Thus far, patient has been reevaluated by physical therapist. However, official PT note is pending which we will follow-up. Update 03/11/2019: As per [employer], insurance approved for SN[facility] and they are working on getting an accepting facility. Patient was seen in collaboration with Dr. Eastman Exam/Review of Systems Exam Vitals Vital Signs Date Temp Pulse Resp B/P (MAP) Pulse Ox O2 O2 Flow FiO2 Time Delivery Rate 03/11/19 97.9 67 18 115/55 95 08:00 (75) 03/10/19 Room Air 01:01 Intake and Output 03/10/19 03/10/19 03/11/19 1515:00 23:00 07:00 IntakeIntake Total 360 ml 700 ml 350 ml OutputOutput Total 600 ml 700 ml BalanceBalance 360 ml 100 ml -350 ml Medications Medication Current Medications IV Flush (NS 3 ml) 3 ml PER PROTOCOL IV Last administered on 02/24/19 16:48; Admin Dose 3 ML; Start 02/10/19 at 23:00 Ondansetron HCl (Zofran Inj) 4 mg Q6H PRN IV NAUSEA/VOMITING Last administered on 02/23/19at 00:54; Admin Dose 4 MG; Start 02/10/19 at 23:00 Acetaminophen (Tylenol Tab) 650 mg Q6H PRN PO .PAIN 1-3 OR TEMP Last administered on 03/03/19 17:13; Admin Dose 650 MG; Start 02/10/19 at 23:00 Docusate Sodium (Colace) 100 mg Q12H PRN PO .CONSTIPATION Last administered on 03/01/19 22:52; Admin Dose 100 MG; Start 02/10/19 at 23:00 Bisacodyl (Dulcolax) 5 mg DAILY PRN PO .CONSTIPATION Last administered on 03/05/19 21:43; Admin Dose 5 MG; Start 02/10/19 at 23:00 Enoxaparin Sodium (Lovenox) 40 mg DAILY SC Last administered on 03/11/19 08:34; Admin Dose 40 MG; Start 02/11/19 at 09:00 Morphine Sulfate (Ms Contin (Er)) 30 mg BID PO Last administered on 03/11/19 08:31; Admin Dose 30 MG; Start 02/10/19 at 23:30 Miscellaneous Information [facility] This patient oliveros... PRN PRN XX WOUND CARE; Start 02/11/19 at 05:00 Baclofen (Lioresal) 40 mg BID PO Last administered on 03/11/19 09:37; Admin Dose 40 MG; Start 02/11/19 at 21:00 Levothyroxine Sodium (Synthroid) 100 mcg DAILY@06 PO Last administered on 03/11/19 05:22; Admin Dose 100 MCG; Start 02/12/19 at 14:00 Polyethylene Glycol (Miralax) 17 gm DAILY PO Last administered on 03/11/19 08:31; Admin Dose 17 GM; Start 02/13/19 at 12:00 Bisacodyl (Dulcolax Supp) 10 mg DAILY PRN [place] CONSTIPATION Last administered on 02/19/19 00:01; Admin Dose 10 MG; Start 02/19/19 at 00:00 Sodium Biphosphate/ Sodium Phosphate (Fleet Enema) 133 ml DAILY PRN [place] CONSTIPATION; Start 02/19/19 at 15:00 Naproxen (Naprosyn) 250 mg BID PO Last administered on 03/11/19 08:31; Admin Dose 250 MG; Start 02/26/19 at 10:30 Pantoprazole (Protonix Tab) 40 mg DAILY@06 PO Last administered on 03/11/19 05:22; Admin Dose 40 MG; Start 02/27/19 at 06:00 Alprazolam (Xanax) 0.25 mg HS PRN PO ANXIETY Last administered on 03/10/19 23:57; Admin Dose 0.25 MG; Start 02/26/19 at 16:00 Gabapentin (Neurontin) 800 mg TID PO Last administered on 03/11/19 08:31; Admin Dose 800 MG; Start 03/01/19 at 13:00 Nortriptyline HCl (Aventyl) 25 mg HS PO Last administered on 03/10/19at 20:37; Admin Dose 25 MG; Start 03/01/19 at 21:00 Acetaminophen/ Hydrocodone Bitart ([place] (5/325)) 1 tab Q6H PRN PO MODERATE PA IN LEVEL 4-6 Last administered on 03/11/19 04:26; Admin Dose 1 TAB; Start 03/02/19 at 13:00 Ciprofloxacin (Cipro) 500 mg BID@06,18 PO Last administered on 03/11/19at 05:22; Admin Dose 500 MG; Start 03/06/19 at 18:00; Stop 03/16/19 at 17:59 Benzocaine (Orajel) 1 applic TID PRN MM PAIN; Start 03/08/19 at 08:00 Morphine Sulfate (morphine) 2 mg Q4H PRN IV BREAKTHROUGH PAIN Last administered on 03/10/19at 22:36; Admin Dose 2 MG; Start 03/10/19 at 22:30 BIA BRAUN NP Mar 11, 2019 12:02
[2019-03-11] MEDS: morphine 2 MG INJ IV PRN ×2 (12:30→21:44)
[2019-03-11 14:00] VITALS: BP 111/56; PULSE 81; RESP 16
[2019-03-11] MEDS: NORTRIPTYLINE 25 MG CAP PO SCH (20:36)
[2019-03-11 21:12] VITALS: BP 120/59; RESP 18
[2019-03-11] MEDS: ALPRAZOLAM 0.25 MG TAB PO PRN (23:20)
[2019-03-12 02:19] VITALS: BP 116/56; RESP 18
[2019-03-12] MEDS: CIPROFLOXACIN 500 MG TAB PO SCH ×2 (06:26→18:03)
[2019-03-12] MEDS: LEVOTHYROXINE 100 MCG TAB PO SCH (06:26)
[2019-03-12] MEDS: PANTOPRAZOLE (EC) 40 MG TAB PO SCH (06:26)
[2019-03-12] MEDS: morphine 2 MG INJ IV PRN ×3 (06:50→19:48)
[2019-03-12] MEDS: GABAPENTIN 400 MG CAP PO SCH ×3 (08:35→21:21)
[2019-03-12] MEDS: BACLOFEN 10 MG TAB PO SCH ×2 (08:35→21:21)
[2019-03-12] MEDS: BALSAM PERU/CASTOR OIL 60 GM TUBE TOP SCH ×2 (08:35→21:24)
[2019-03-12] MEDS: NAPROXEN 250 MG TAB PO SCH ×2 (08:35→21:21)
[2019-03-12] MEDS: POLYETHYLENE GLYCOL 17 GM PACKET PO SCH (08:35)
[2019-03-12] MEDS: ENOXAPARIN 40 MG/0.4 ML SYG SC SCH (08:36)
[2019-03-12] MEDS: morphine (ER) 30 MG TAB PO SCH ×2 (08:38→21:21)
--- NOTE | 2019-03-12 12:18 | PN ---
Date/Time of Note Date/Time of Note DATE: 03/12/19 TIME: 12:16 Assessment/Plan VTE Prophylaxis Risk score (from Ns)>0 risk: 3 SCD applied (from Ns): Yes Pharmacological prophylaxis: LMWH Lines[facility] Urinary Cath still in place: No (condom cath) Assessment/Plan Hospital Course SUBJECTIVE: No acute episodes. OBJECTIVE: Vital signs-see below PHYSICAL EXAM: Constitutional: Adequately built,not in acute distress. HEENT: Head atraumatic and normocephalic. Eyes: Extraocular muscles intact. Anicteric sclerae. Pupils equal bilaterally, reactive to light. NECK: Supple without lymph node. CHEST: Clear and good breath sounds equally. No wheezing. No rhonchi. HEART: S1, S2. Regular rate and rhythm. ABDOMEN: Soft/non tender with no rebound tenderness. Bowel sounds were present. EXTREMITIES: No cyanosis, clubbing or edema. NEUROLOGIC: Alert and oriented x3. No focal deficit. No sensory deficit. PSYCHOSOCIAL: No signs of depression. INTEGUMENTARY: No open wounds. ASSESSMENT AND PLAN:49 yo M w/C spine fracture,s/p surgery admitted w/R leg cellulitis and numbness.. Right lower extremity cellulitis -stable, continue wound care UTI,recurrent -Patient recently completed a course of antimicrobial and repeat culture shows Pseudomonas in the setting of dysuria. Cont p.o. Cipro.w/stop date on it. 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 Hepatitis C -Outpt f/u recommended Debility -SNF DVT GI prophylaxis: Lovenox Disposition:Pending SNF Patient was seen in collaboration with Dr. Eastman Exam/Review of Systems Exam Vitals Vital Signs Date Temp Pulse Resp B/P (MAP) Pulse Ox O2 O2 Flow FiO2 Time Delivery Rate 03/12/19 98.0 18 116/56 94 02:19 (76) 03/11/19 81 14:00 03/10/19 Room Air 01:01 Intake and Output 03/11/19 03/11/19 03/12/19 1515:00 23:00 07:00 IntakeIntake Total 640 ml 240 ml 240 ml OutputOutput Total 701 ml 952 ml BalanceBalance 640 ml -461 ml -712 ml Medications Medication Current Medications IV Flush (NS 3 ml) 3 ml PER PROTOCOL IV Last administered on 02/24/19 16:48; A dmin Dose 3 ML; Start 02/10/19 at 23:00 Ondansetron HCl (Zofran Inj) 4 mg Q6H PRN IV NAUSEA/VOMITING Last administered on 02/23/19 00:54; Admin Dose 4 MG; Start 02/10/19 at 23:00 Acetaminophen (Tylenol Tab) 650 mg Q6H PRN PO .PAIN 1-3 OR TEMP Last adminis tered on 03/03/19 17:13; Admin Dose 650 MG; Start 02/10/19 at 23:00 Docusate Sodium (Colace) 100 mg Q12H PRN PO .CONSTIPATION Last administered on 03/01/19 22:52; Admin Dose 100 MG; Start 02/10/19 at 23:00 Bisacodyl (Dulcolax) 5 mg DAILY PRN PO .CONSTIPATION Last administered on 03/05/19 21:43; Admin Dose 5 MG; Start 02/10/19 at 23:00 Enoxaparin Sodium (Lovenox) 40 mg DAILY SC Last administered on 03/12/19 08:36; Admin Dose 40 MG; Start 02/11/19 at 09:00 Morphine Sulfate (Ms Contin (Er)) 30 mg BID PO Last administered on 03/12/19 08:38; Admin Dose 30 MG; Start 02/10/19 at 23:30 Miscellaneous Information (Pending [facility] Order For Wound Care) This patient oliveros... PRN PRN XX WOUND CARE; Start 02/11/19 at 05:00 Baclofen (Lioresal) 40 mg BID PO Last administered on 03/12/19 08:35; Admin Dose 40 MG; Start 02/11/19 at 21:00 Levothyroxine Sodium (Synthroid) 100 mcg DAILY@06 PO Last administered on 03/12/19 06:26; Admin Dose 100 MCG; Start 02/12/19 at 14:00 Polyethylene Glycol (Miralax) 17 gm DAILY PO Last administered on 03/12/19 08:35; Admin Dose 17 GM; Start 02/13/19 at 12:00 Bisacodyl (Dulcolax Supp) 10 mg DAILY PRN [place] CONSTIPATION Last administered on 02/19/19 00:01; Admin Dose 10 MG; Start 02/19/19 at 00:00 Sodium Biphosphate/ Sodium Phosphate (Fleet Enema) 133 ml DAILY PRN [place] CONSTIPATION; Start 02/19/19 at 15:00 Naproxen (Naprosyn) 250 mg BID PO Last administered on 03/12/19 08:35; Admin Dose 250 MG; Start 02/26/19 at 10:30 Pantoprazole (Protonix Tab) 40 mg DAILY@06 PO Last administered on 03/12/19 06:26; Admin Dose 40 MG; Start 02/27/19 at 06:00 Alprazolam (Xanax) 0.25 mg HS PRN PO ANXIETY Last administered on 03/11/19 23:20; Admin Dose 0.25 MG; Start 02/26/19 at 16:00 Gabapentin (Neurontin) 800 mg TID PO Last administered on 03/12/19 08:35; Admin Dose 800 MG; Start 03/01/19 at 13:00 Nortriptyline HCl (Aventyl) 25 mg HS PO Last administered on 03/11/19 20:36; Admin Dose 25 MG; Start 03/01/19 at 21:00 Acetaminophen/ Hydrocodone Bitart ([place] (5/325)) 1 tab Q6H PRN PO MODERATE PAIN LEVEL 4-6 Last administered on 03/11/19 23:20; Admin Dose 1 TAB; Start 03/02/19 at 13:00 Ciprofloxacin (Cipro) 500 mg BID@06,18 PO Last administered on 03/12/19 06:26; Admin Dose 500 MG; Start 03/06/19 at 18:00; Stop 03/16/19 at 17:59 Benzocaine (Orajel) 1 applic TID PRN MM PAIN; Start 03/08/19 at 08:00 Morphine Sulfate (morphine) 2 mg Q4H PRN IV BREAKTHROUGH PAIN Last administered on 03/12/19 12:06; Admin Dose 2 MG; Start 03/10/19 at 22:30 BIA BRAUN NP Mar 12, 2019 12:18
[2019-03-12 14:45] VITALS: BP 116/59; PULSE 89; RESP 18
[2019-03-12] MEDS: NORTRIPTYLINE 25 MG CAP PO SCH (21:21)
[2019-03-12 21:31] VITALS: BP 120/59; RESP 18
[2019-03-12] MEDS: ALPRAZOLAM 0.25 MG TAB PO PRN (21:33)
[2019-03-13] MEDS: morphine 2 MG INJ IV PRN ×3 (02:01→21:24)
[2019-03-13 02:25] VITALS: BP 122/62; PULSE 88; RESP 18
[2019-03-13] MEDS: CIPROFLOXACIN 500 MG TAB PO SCH ×2 (05:39→17:12)
[2019-03-13] MEDS: PANTOPRAZOLE (EC) 40 MG TAB PO SCH (05:39)
[2019-03-13] MEDS: LEVOTHYROXINE 100 MCG TAB PO SCH (05:39)
[2019-03-13] MEDS: POLYETHYLENE GLYCOL 17 GM PACKET PO SCH (08:05)
[2019-03-13] MEDS: morphine (ER) 30 MG TAB PO SCH ×2 (08:06→20:10)
[2019-03-13] MEDS: BACLOFEN 10 MG TAB PO SCH ×2 (08:06→20:10)
[2019-03-13] MEDS: GABAPENTIN 400 MG CAP PO SCH ×3 (08:06→20:10)
[2019-03-13] MEDS: NAPROXEN 250 MG TAB PO SCH ×2 (08:06→20:10)
[2019-03-13] MEDS: ENOXAPARIN 40 MG/0.4 ML SYG SC SCH (08:08)
[2019-03-13] MEDS: BALSAM PERU/CASTOR OIL 60 GM TUBE TOP SCH ×2 (08:12→20:11)
[2019-03-13] MEDS ORDERED: [UNRECOGNIZED DRUG - REMARK] XX SCH (09:30)
[2019-03-13 13:57] VITALS: BP 116/58; PULSE 80; RESP 16
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
[2019-03-13] MEDS: NORTRIPTYLINE 25 MG CAP PO SCH (20:09)
[2019-03-13 21:50] VITALS: BP 134/60; PULSE 93; RESP 18
[2019-03-14] MEDS: HYDROCODONE/APAP (5/325) TAB PO PRN ×3 (00:02→19:47)
[2019-03-14] MEDS: ALPRAZOLAM 0.25 MG TAB PO PRN ×2 (00:02→23:15)
[2019-03-14 01:56] VITALS: BP 118/54; PULSE 95; RESP 18
[2019-03-14] MEDS: PANTOPRAZOLE (EC) 40 MG TAB PO SCH (05:07)
[2019-03-14] MEDS: LEVOTHYROXINE 100 MCG TAB PO SCH (05:07)
[2019-03-14] MEDS: CIPROFLOXACIN 500 MG TAB PO SCH ×2 (05:08→18:09)
[2019-03-14] MEDS: morphine 2 MG INJ IV PRN ×4 (05:08→22:37)
[2019-03-14 08:00] VITALS: BP 101/54; PULSE 77; RESP 16
[2019-03-14] MEDS: BACLOFEN 10 MG TAB PO SCH ×2 (08:10→21:20)
[2019-03-14] MEDS: POLYETHYLENE GLYCOL 17 GM PACKET PO SCH (08:10)
[2019-03-14] MEDS: GABAPENTIN 400 MG CAP PO SCH ×3 (08:10→21:20)
[2019-03-14] MEDS: NAPROXEN 250 MG TAB PO SCH ×2 (08:11→21:20)
[2019-03-14] MEDS: morphine (ER) 30 MG TAB PO SCH ×2 (08:11→21:21)
[2019-03-14] MEDS: BALSAM PERU/CASTOR OIL 60 GM TUBE TOP SCH ×3 (08:12→22:26)
[2019-03-14] MEDS: ENOXAPARIN 40 MG/0.4 ML SYG SC SCH (08:14)
--- NOTE | 2019-03-14 12:58 | PN ---
Date/Time of Note Date/Time of Note DATE: 03/14/19 TIME: 12:55 Assessment/Plan VTE Prophylaxis Risk score (from Ns)>0 risk: 6 SCD applied (from Ns): No SCD contraindicated: patient refusal Pharmacological prophylaxis: heparin Lines/Catheters IV Catheter Type (from Nrs): Saline Lock Urinary Cath still in place: No Assessment/Plan Problems: (1) Fracture of C5-C7 vertebrae with cord injury Status: Chronic Comment: This in the facility. We are still working aggressively with his [employer] company, [employer], to try and get him a place to be. (2) Debility Status: Chronic Comment: Chronic, and stable (3) Chronic pain syndrome Status: Chronic Comment: Adequate control (4) Hypothyroidism Status: Chronic Qualifiers: Hypothyroidism type: acquired Qualified Codes: E03.9 - Hypothyroidism, unspecified (5) Aortic stenosis due to bicuspid aortic valve Status: Chronic Comment: Noted and stable at this time (6) Aortic insufficiency due to bicuspid aortic valve Status: Chronic Comment: Noted and stable at this time (7) Grade I diastolic dysfunction Status: Chronic Comment: Control blood pressure and pulse rate Subjective 24 Hr Interval Summary Free Text/Dictation Patient reports he is still waiting on placement. Reports will be getting some additional new braces for his feet this coming Saturday Constitutional: no complaints Respiratory: no complaints Cardiovascular: no complaints Gastrointestinal: no complaints Neurologic: no complaints Exam/Review of Systems Exam Vitals Vital Signs Date Temp Pulse Resp B/P (MAP) Pulse Ox O2 O2 Flow FiO2 Time Delivery Rate 03/14/19 97.9 77 16 101/54 95 08:00 (70) 03/12/19 Room Air 21:31 Intake and Output 03/13/19 03/13/19 03/14/19 1515:00 23:00 07:00 IntakeIntake Total 560 ml 480 ml 240 ml OutputOutput Total 300 ml 1000 ml BalanceBalance 560 ml 180 ml -760 ml Constitutional: alert Respiratory: clear to auscultation, normal air movement Cardiovascular: regular rate and rhythm, nl pulses Extremities: normal pulses (Exam) Medications Medication Current Medications IV Flush (NS 3 ml) 3 ml PER PROTOCOL IV Last administered on 02/24/19at 16:48; Admin Dose 3 ML; Start 02/10/19 at 23:00 Ondansetron HCl (Zofran Inj) 4 mg Q6H PRN IV NAUSEA/VOMITING Last administered on 02/23/19 00:54; Admin Dose 4 MG; Start 02/10/19 at 23:00 Acetaminophen (Tylenol Tab) 650 mg Q6H PRN PO .PAIN 1-3 OR TEMP Last adm inistered on 03/03/19 17:13; Admin Dose 650 MG; Start 02/10/19 at 23:00 Docusate Sodium (Colace) 100 mg Q12H PRN PO .CONSTIPATION Last administered on 03/01/19 22:52; Admin Dose 100 MG; Start 02/10/19 at 23:00 Bisacodyl (Dulcolax) 5 mg DAILY PRN PO .CONSTIPATION Last administered on 03/05/19 21:43; Admin Dose 5 MG; Start 02/10/19 at 23:00 Enoxaparin Sodium (Lovenox) 40 mg DAILY SC Last administered on 03/14/19 08:14; Admin Dose 40 MG; Start 02/11/19 at 09:00 Morphine Sulfate (Ms Contin (Er)) 30 mg BID PO Last administered on 03/14/19 08:11; Admin Dose 30 MG; Start 02/10/19 at 23:30 Miscellaneous Information (Pending [facility] Order For Wound Care) This patient oliveros... PRN PRN XX WOUND CARE; Start 02/11/19 at 05:00 Baclofen (Lioresal) 40 mg BID PO Last administered on 03/14/19 08:10; Admin Dose 40 MG; Start 02/11/19 at 21:00 Levothyroxine Sodium (Synthroid) 100 mcg DAILY@06 PO Last administered on 03/14/19 05:07; Admin Dose 100 MCG; Start 02/12/19 at 14:00 Polyethylene Glycol (Miralax) 17 gm DAILY PO Last administered on 03/14/19 08:10; Admin Dose 17 GM; Start 02/13/19 at 12:00 Bisacodyl (Dulcolax Supp) 10 mg DAILY PRN [place] CONSTIPATION Last administered on 02/19/19 00:01; Admin Dose 10 MG; Start 02/19/19 at 00:00 Sodium Biphosphate/ Sodium Phosphate (Fleet Enema) 133 ml DAILY PRN [place] CONSTIPATION; Start 02/19/19 at 15:00 Naproxen (Naprosyn) 250 mg BID PO Last administered on 03/14/19 08:11; Admin Dose 250 MG; Start 02/26/19 at 10:30 Pantoprazole (Protonix Tab) 40 mg DAILY@06 PO Last administered on 03/14/19 05:07; Admin Dose 40 MG; Start 02/27/19 at 06:00 Alprazolam (Xanax) 0.25 mg HS PRN PO ANXIETY Last administered on 03/14/19 00:02; Admin Dose 0.25 MG; Start 02/26/19 at 16:00 Gabapentin (Neurontin) 800 mg TID PO Last administered on 03/14/19 12:27; Admin Dose 800 MG; Start 03/01/19 at 13:00 Nortriptyline HCl (Aventyl) 25 mg HS PO Last administered on 03/13/19 20:09; Admin Dose 25 MG; Start 03/01/19 at 21:00 Acetaminophen/ Hydrocodone Bitart ([place] (5/325)) 1 tab Q6H PRN PO MODERATE PAIN LEVEL 4-6 Last administered on 03/14/19 12:27; Admin Dose 1 TAB; Start 03/02/19 at 13:00 Ciprofloxacin (Cipro) 500 mg BID@18 PO Last administered on 03/14/19 05:08; Admin Dose 500 MG; Start 03/06/19 at 18:00; Stop 03/16/19 at 17:59 Benzocaine (Orajel) 1 applic TID PRN MM PAIN; Start 03/08/19 at 08:00 Morphine Sulfate (morphine) 2 mg Q4H PRN IV BREAKTHROUGH PAIN Last administered on 03/14/19 10:26; Admin Dose 2 MG; Start 03/10/19 at 22:30 Miscellaneous Information 1 ea NOTE XX ; Start 03/13/19 at 09:30 CHIOMA OLIVA MD Mar 14, 2019 12:58
[2019-03-14 14:00] VITALS: BP 103/57; PULSE 74; RESP 16
[2019-03-14 19:43] VITALS: BP 129/59; PULSE 81; RESP 16
[2019-03-14] MEDS: NORTRIPTYLINE 25 MG CAP PO SCH (21:20)
[2019-03-15 01:36] VITALS: BP 123/58; PULSE 81; RESP 16
[2019-03-15] MEDS: HYDROCODONE/APAP (5/325) TAB PO PRN ×2 (02:21→17:07)
[2019-03-15] MEDS: PANTOPRAZOLE (EC) 40 MG TAB PO SCH (05:27)
[2019-03-15] MEDS: LEVOTHYROXINE 100 MCG TAB PO SCH (05:27)
[2019-03-15] MEDS: CIPROFLOXACIN 500 MG TAB PO SCH ×2 (05:27→17:06)
[2019-03-15 08:51] VITALS: BP 133/63; PULSE 66; RESP 17
[2019-03-15] MEDS: BACLOFEN 10 MG TAB PO SCH ×2 (09:10→20:46)
[2019-03-15] MEDS: GABAPENTIN 400 MG CAP PO SCH ×4 (09:10→20:48)
[2019-03-15] MEDS: BALSAM PERU/CASTOR OIL 60 GM TUBE TOP SCH ×2 (09:11→20:50)
[2019-03-15] MEDS: morphine (ER) 30 MG TAB PO SCH ×2 (09:11→20:48)
[2019-03-15] MEDS: POLYETHYLENE GLYCOL 17 GM PACKET PO SCH (09:11)
[2019-03-15] MEDS: NAPROXEN 250 MG TAB PO SCH ×2 (09:11→20:46)
[2019-03-15] MEDS: ENOXAPARIN 40 MG/0.4 ML SYG SC SCH (09:12)
--- NOTE | 2019-03-15 10:55 | PN ---
Date/Time of Note Date/Time of Note DATE: 03/15/19 TIME: 10:53 Assessment/Plan VTE Prophylaxis Risk score (from Ns)>0 risk: 5 SCD applied (from [facility] [place]): No SCD contraindicated: bilateral LE trauma Pharmacological prophylaxis: heparin Lines/Catheters IV Catheter Type (from [facility]): Saline Lock Urinary Cath still in place: No Assessment/Plan Problems: (1) Chronic pain syndrome Status: Chronic Comment: Pain management with Dr. Regan is involved in his care. I am going to adjust on the gabapentin as well as the try cyclic antidepressant to see if we get a little bit better control. Narcotics as per Dr. Regan (2) Hypothyroidism Status: Chronic Comment: Recheck thyroid function at this time Qualifiers: Hypothyroidism type: acquired Qualified Codes: E03.9 - Hypothyroidism, unspecified (3) Aortic stenosis due to bicuspid aortic valve Status: Chronic Comment: Noted. (4) Aortic insufficiency due to bicuspid aortic valve Status: Chronic Comment: Noted. (5) Grade I diastolic dysfunction Status: Chronic Comment: Noted. Subjective 24 Hr Interval Summary Free Text/Dictation She complains that when the drain put on new leg braces given his muscle spasm gives him a fair amount of pain and requests more pain medications. Constitutional: no complaints ENT: other (Planes of right lower molar broken tooth) Respiratory: no complaints Cardiovascular: no complaints Gastrointestinal: no complaints Musculoskeletal: other (Leg pain) Exam/Review of Systems Exam Vitals Vital Signs Date Temp Pulse Resp B/P (MAP) Pulse Ox O2 O2 Flow FiO2 Time Delivery Rate 03/15/19 97.5 66 17 133/63 95 08:51 (86) 03/15/19 Room Air 01:36 Intake and Output 03/14/19 03/14/19 03/15/19 1515:00 23:00 07:00 IntakeIntake Total 440 ml 360 ml OutputOutput Total 1000 ml 1475 ml BalanceBalance 440 ml -1000 ml -1115 ml Constitutional: alert, oriented ENMT: nl lips & teeth (Right lower third molar fractured off) Neck: supple, non-tender Cardiovascular: regular rate and rhythm, nl pulses Gastrointestinal: soft, nl liver, spleen, non-tender Medications Medication Current Medications IV Flush (NS 3 ml) 3 ml PER PROTOCOL IV Last administered on 02/24/19at 16:48; Admin Dose 3 ML; Start 02/10/19 at 23:00 Ondansetron HCl (Zofran Inj) 4 mg Q6H PRN IV NAUSEA/VOMITING Last administered on 02/23/19 00:54; Admin Dose 4 MG; Start 02/10/19 at 23:00 Acetaminophen (Tylenol Tab) 650 mg Q6H PRN PO .PAIN 1-3 OR TEMP Last administered on 03/03/19 17:13; Admin Dose 650 MG; Start 02/10/19 at 23:00 Docusate Sodium (Colace) 100 mg Q12H PRN PO .CONSTIPATION Last administered on 03/01/19 22:52; Admin Dose 100 MG; Start 02/10/19 at 23:00 Bisacodyl (Dulcolax) 5 mg DAILY PRN PO .CONSTIPATION Last administered on 03/05/19 21:43; Admin Dose 5 MG; Start 02/10/19 at 23:00 Enoxaparin Sodium (Lovenox) 40 mg DAILY SC Last administered on 03/15/19 09:12; Admin Dose 40 MG; Start 02/11/19 at 09:00 Morphine Sulfate (Ms Contin (Er)) 30 mg BID PO Last administered on 03/15/19 09:11; Admin Dose 30 MG; Start 02/10/19 at 23:30 Miscellaneous Information ([facility] This patient oliveros... PRN PRN XX WOUND CARE; Start 02/11/19 at 05:00 Baclofen (Lioresal) 40 mg BID PO Last administered on 03/15/19 09:10; Admin Dose 40 MG; Start 02/11/19 at 21:00 Levothyroxine Sodium (Synthroid) 100 mcg DAILY@06 PO Last administered on 03/15/19 05:27; Admin Dose 100 MCG; Start 02/12/19 at 14:00 Polyethylene Glycol (Miralax) 17 gm DAILY PO Last administered on 03/15/19 09:11; Admin Dose 17 GM; Start 02/13/19 at 12:00 Bisacodyl (Dulcolax Supp) 10 mg DAILY PRN [place] CONSTIPATION Last administered on 02/19/19 00:01; Admin Dose 10 MG; Start 02/19/19 at 00:00 Sodium Biphosphate/ Sodium Phosphate (Fleet Enema) 133 ml DAILY PRN [place] CONSTIPATION; Start 02/19/19 at 15:00 Naproxen (Naprosyn) 250 mg BID PO Last administered on 03/15/19 09:11; Admin Dose 250 MG; Start 02/26/19 at 10:30 Pantoprazole (Protonix Tab) 40 mg DAILY@06 PO Last administered on 03/15/19 05:27; Admin Dose 40 MG; Start 02/27/19 at 06:00 Alprazolam (Xanax) 0.25 mg HS PRN PO ANXIETY Last administered on 03/14/19 23:15; Admin Dose 0.25 MG; Start 02/26/19 at 16:00 Nortriptyline HCl (Aventyl) 25 mg HS PO Last administered on 03/14/19 21:20; Admin Dose 25 MG; Start 03/01/19 at 21:00 Acetaminophen/ Hydrocodone Bitart ([place] (5/325)) 1 tab Q6H PRN PO MODERATE PAIN LEVEL 4-6 Last administered on 03/15/19at 02:21; Admin Dose 1 TAB; Start 03/02/19 at 13:00 Ciprofloxacin (Cipro) 500 mg BID@06,18 PO Last administered on 03/15/19 05:27; Admin Dose 500 MG; Start 03/06/19 at 18:00; Stop 03/16/19 at 17:59 Benzocaine (Orajel) 1 applic TID PRN MM PAIN; Start 03/08/19 at 08:00 Morphine Sulfate (morphine) 2 mg Q4H PRN IV BREAKTHROUGH PAIN Last administered on 03/14/19at 22:37; Admin Dose 2 MG; Start 03/10/19 at 22:30 Miscellaneous Information 1 ea NOTE XX ; Start 03/13/19 at 09:30 Gabapentin (Neurontin) 800 mg QID PO ; Start 03/15/19 at 13:00 CHIOMA OLIVA MD Mar 15, 2019 10:55
[2019-03-15] MEDS ORDERED: TESTOSTERONE CYPIONATE 200 MG/ML INJ IM ONE (12:00)
[2019-03-15] MEDS: morphine 2 MG INJ IV PRN ×3 (12:50→23:40)
[2019-03-15 14:37] VITALS: BP 118/50; PULSE 86; RESP 19
[2019-03-15 19:35] VITALS: BP 119/61; PULSE 79; RESP 16
[2019-03-15] MEDS: NORTRIPTYLINE 25 MG CAP PO SCH (20:48)
[2019-03-16] MEDS: ALPRAZOLAM 0.25 MG TAB PO PRN (00:28)
[2019-03-16 01:39] VITALS: BP 113/40; PULSE 100; RESP 16
[2019-03-16 05:14] VITALS: PULSE 80
[2019-03-16] MEDS: PANTOPRAZOLE (EC) 40 MG TAB PO SCH (05:15)
[2019-03-16] MEDS: CIPROFLOXACIN 500 MG TAB PO SCH (05:15)
[2019-03-16] MEDS: LEVOTHYROXINE 100 MCG TAB PO SCH (05:15)
[2019-03-16 07:50] VITALS: BP 102/43; PULSE 73; RESP 18
[2019-03-16] MEDS: POLYETHYLENE GLYCOL 17 GM PACKET PO SCH (09:00)
[2019-03-16] MEDS: ENOXAPARIN 40 MG/0.4 ML SYG SC SCH (09:15)
[2019-03-16] MEDS: BACLOFEN 10 MG TAB PO SCH ×2 (09:16→20:52)
[2019-03-16] MEDS: GABAPENTIN 400 MG CAP PO SCH ×4 (09:17→20:52)
[2019-03-16] MEDS: NAPROXEN 250 MG TAB PO SCH ×2 (09:17→20:51)
[2019-03-16] MEDS: morphine (ER) 30 MG TAB PO SCH ×2 (09:17→20:52)
[2019-03-16] MEDS: BALSAM PERU/CASTOR OIL 60 GM TUBE TOP SCH ×2 (09:18→20:54)
[2019-03-16] MEDS: morphine 2 MG INJ IV PRN ×3 (11:56→23:49)
[2019-03-16 14:21] VITALS: BP 109/53; PULSE 85; RESP 17
--- NOTE | 2019-03-16 14:40 | PN ---
Date/Time of Note Date/Time of Note DATE: 03/16/19 TIME: 14:38 Assessment/Plan VTE Prophylaxis Risk score (from Ns)>0 risk: 5 SCD applied (from [facility] [place] No SCD contraindicated: other Pharmacological prophylaxis: LMWH Lines/Catheters IV C[facility]ter Type (from [facility] Saline Lock Urinary Cath still in place: No Assessment/Plan Hospital Course SUBJECTIVE: No acute episodes. OBJECTIVE: Vital signs-see below PHYSICAL EXAM: Constitutional: Adequately built,not in acute distress. HEENT: Head atraumatic and normocephalic. Eyes: Extraocular muscles intact. Anicteric sclerae. Pupils equal bilaterally, reactive to light. NECK: Supple without lymph node. CHEST: Clear and good breath sounds equally. No wheezing. No rhonchi. HEART: S1, S2. Regular rate and rhythm. ABDOMEN: Soft/non tender with no rebound tenderness. Bowel sounds were present. EXTREMITIES: No cyanosis, clubbing or edema. NEUROLOGIC: Alert and oriented x3. No focal deficit. No sensory deficit. PSYCHOSOCIAL: No signs of depression. INTEGUMENTARY: No open wounds. ASSESSMENT AND PLAN:49 yo M w/C spine fracture,s/p surgery admitted w/R leg cellulitis and numbness.. Right lower extremity cellulitis -stable, continue wound care UTI,recurrent -Patient recently completed a course of antimicrobial and repeat culture shows Pseudomonas in the setting of dysuria. Cont p.o. Cipro.w/stop date on it. 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 Hepatitis C -Outpt f/u recommended Debility -SNF DVT GI prophylaxis: Lovenox Disposition:Pending SNF Patient was seen in collaboration with Dr. Eastman Result Diagram: 03/16/1943003/16/191 Results 24hrs Laboratory Tests Test 03/16/19 04:31 White Blood Count 5.9 Red Blood Count 4.26 L Hemoglobin 13.1 L Hematocrit 40.0 L Mean Corpuscular Volume 93.9 Mean Corpuscular Hemoglobin 30.8 Mean Corpuscular Hemoglobin Concent 32.8 Red Cell Distribution Width 12.5 Platelet Count 315 # Mean Platelet Volume 8.8 Immature Granulocytes % 0.200 Neutrophils % 55.1 Lymphocytes % 29.7 Monocytes % 9.6 Eosinophils % 5.1 Basophils % 0.3 Nucleated Red Blood Cells % 0.0 Immature Granulocytes # 0.010 Neutrophils # 3.2 Lymphocytes # 1.7 Monocytes # 0.6 Eosinophils # 0.3 Basophils # 0.0 Nucleated Red Blood Cells # 0.0 Sodium Level 138 Potassium Level 4.5 Chloride Level 103 Carbon Dioxide Level 32 H Anion Gap 3 L Blood Urea Nitrogen 29 H Creatinine 0.73 Est Glomerular Filtrat Rate mL/min > 60 Glucose Level 91 Calcium Level 9.4 Total Bilirubin 0.2 Direct Bilirubin 0.00 Indirect Bilirubin 0.2 Aspartate Amino Transf (AST/SGOT) 91 H Alanine Aminotransferase (ALT/SGPT) 115 H Alkaline Phosphatase 83 Total Protein 7.4 Albumin 3.7 Globulin 3.70 H Albumin/Globulin Ratio 1.00 Thyroid Stimulating Hormone (TSH) 49.300 H Exam/Review of Systems Exam Vitals Vital Signs Date Temp Pulse Resp B/P (MAP) Pulse Ox O2 O2 Flow FiO2 Time Delivery Rate 03/16/19 97.9 85 17 109/53 97 14:21 (71) 03/16/19 Room Air 01:39 Intake and Output 03/15/19 03/15/19 03/16/19 1515:00 23:00 07:00 IntakeIntake Total 400 ml 760 ml 360 ml OutputOutput Total 1200 ml 1200 ml BalanceBalance 400 ml -440 ml -840 ml Results Results 24hrs Laboratory Tests Test 03/16/19 04:31 White Blood Count 5.9 Red Blood Count 4.26 L Hemoglobin 13.1 L Hematocrit 40.0 L Mean Corpuscular Volume 93.9 Mean Corpuscular Hemoglobin 30.8 Mean Corpuscular Hemoglobin Concent 32.8 Red Cell Distribution Width 12.5 Platelet Count 315 # Mean Platelet Volume 8.8 Immature Granulocytes % 0.200 Neutrophils % 55.1 Lymphocytes % 29.7 Monocytes % 9.6 Eosinophils % 5.1 Basophils % 0.3 Nucleated Red Blood Cells % 0.0 Immature Granulocytes # 0.010 Neutrophils # 3.2 Lymphocytes # 1.7 Monocytes # 0.6 Eosinophils # 0.3 Basophils # 0.0 Nucleated Red Blood Cells # 0.0 Sodium Level 138 Potassium Level 4.5 Chloride Level 103 Carbon Dioxide Level 32 H Anion Gap 3 L Blood Urea Nitrogen 29 H Creatinine 0.73 Est Glomerular Filtrat Rate mL/min > 60 Glucose Level 91 Calcium Level 9.4 Total Bilirubin 0.2 Direct Bilirubin 0.00 Indirect Bilirubin 0.2 Aspartate Amino Transf (AST/SGOT) 91 H Alanine Aminotransferase (ALT/SGPT) 115 H Alkaline Phosphatase 83 Total Protein 7.4 Albumin 3.7 Globulin 3.70 H Albumin/Globulin Ratio 1.00 Thyroid Stimulating Hormone (TSH) 49.300 H Medications Medication Current Medications IV Flush (NS 3 ml) 3 ml PER PROTOCOL IV Last administered on 02/24/19 16:48; Admin Dose 3 ML; Start 02/10/19 at 23:00 Ondansetron HCl (Zofran Inj) 4 mg Q6H PRN IV NAUSEA/VOMITING Last administered on 02/23/19 00:54; Admin Dose 4 MG; Start 02/10/19 at 23:00 Acetaminophen (Tylenol Tab) 650 mg Q6H PRN PO .PAIN 1-3 OR TEMP Last administered on 03/03/19 17:13; Admin Dose 650 MG; Start 02/10/19 at 23:00 Docusate Sodium (Colace) 100 mg Q12H PRN PO .CONSTIPATION Last administered on 03/01/19 22:52; Admin Dose 100 MG; Start 02/10/19 at 23:00 Bisacodyl (Dulcolax) 5 mg DAILY PRN PO .CONSTIPATION Last administered on 03/05/19 21:43; Admin Dose 5 MG; Start 02/10/19 at 23:00 Enoxaparin Sodium (Lovenox) 40 mg DAILY SC Last administered on 03/16/19 09:15; Admin Dose 40 MG; Start 02/11/19 at 09:00 Morphine Sulfate (Ms Contin (Er)) 30 mg BID PO Last administered on 03/16/19 09:17; Admin Dose 30 MG; Start 02/10/19 at 23:30 Miscellaneous Information (Pending [facility] Order For Wound Care) This patient oliveros... PRN PRN XX WOUND CARE; Start 02/11/19 at 05:00 Baclofen (Lioresal) 40 mg BID PO Last administered on 03/16/19 09:16; Admin Dose 40 MG; Start 02/11/19 at 21:00 Levothyroxine Sodium (Synthroid) 100 mcg DAILY@06 PO Last administered on 03/16/19 05:15; Admin Dose 100 MCG; Start 02/12/19 at 14:00 Polyethylene Glycol (Miralax) 17 gm DAILY PO Last administered on 03/15/19 09:11; Admin Dose 17 GM; Start 02/13/19 at 12:00 Bisacodyl (Dulcolax Supp) 10 mg DAILY PRN [place] CONSTIPATION Last administered on 02/19/19at 00:01; Admin Dose 10 MG; Start 02/19/19 at 00:00 Sodium Biphosphate/ Sodium Phosphate (Fleet Enema) 133 ml DAILY PRN [place] CONSTIPATION; Start 02/19/19 at 15:00 Naproxen (Naprosyn) 250 mg BID PO Last administered on 03/16/19 09:17; Admin Dose 250 MG; Start 02/26/19 at 10:30 Pantoprazole (Protonix Tab) 40 mg DAILY@06 PO Last administered on 03/16/19 05:15; Admin Dose 40 MG; Start 02/27/19 at 06:00 Alprazolam (Xanax) 0.25 mg HS PRN PO ANXIETY Last administered on 03/16/19 00:28; Admin Dose 0.25 MG; Start 02/26/19 at 16:00 Acetaminophen/ Hydrocodone Bitart ([place] (5/325)) 1 tab Q6H PRN PO MODERATE PAIN LEVEL 4-6 Last administered on 03/15/19at 17:07; Admin Dose 1 TAB; Start 03/02/19 at 13:00 Ciprofloxacin (Cipro) 500 mg BID@06,18 PO Last administered on 03/16/19 05:15; Admin Dose 500 MG; Start 03/06/19 at 18:00; Stop 03/16/19 at 17:59 Benzocaine (Orajel) 1 applic TID PRN MM PAIN; Start 03/08/19 at 08:00 Morphine Sulfate (morphine) 2 mg Q4H PRN IV BREAKTHROUGH PAIN Last administered on 03/16/19at 11:56; Admin Dose 2 MG; Start 03/10/19 at 22:30 Miscellaneous Information 1 ea NOTE XX ; Start 03/13/19 at 09:30 Gabapentin (Neurontin) 800 mg QID PO Last administered on 03/16/19at 12:37; Admin Dose 800 MG; Start 03/15/19 at 13:00 Nortriptyline HCl (Aventyl) 50 mg HS PO Last administered on 03/15/19at 20:48; Admin Dose 50 MG; Start 03/15/19 at 21:00 BIA BRAUN NP Mar 16, 2019 14:40
[2019-03-16 20:07] VITALS: BP 110/54; PULSE 80; RESP 18
[2019-03-16] MEDS: NORTRIPTYLINE 25 MG CAP PO SCH (20:51)
[2019-03-17 01:35] VITALS: BP 111/53; PULSE 86; RESP 18
[2019-03-17] MEDS: HYDROCODONE/APAP (5/325) TAB PO PRN ×2 (02:26→23:40)
[2019-03-17] MEDS: LEVOTHYROXINE 100 MCG TAB PO SCH (06:00)
[2019-03-17] MEDS: PANTOPRAZOLE (EC) 40 MG TAB PO SCH (06:00)
[2019-03-17] MEDS: morphine 2 MG INJ IV PRN ×4 (06:26→21:28)
[2019-03-17 08:00] VITALS: BP 110/55; PULSE 80; RESP 18
[2019-03-17] MEDS: BACLOFEN 10 MG TAB PO SCH ×2 (08:53→20:09)
[2019-03-17] MEDS: POLYETHYLENE GLYCOL 17 GM PACKET PO SCH (08:53)
[2019-03-17] MEDS: GABAPENTIN 400 MG CAP PO SCH ×4 (08:53→20:09)
[2019-03-17] MEDS: morphine (ER) 30 MG TAB PO SCH ×2 (08:54→20:10)
[2019-03-17] MEDS: BALSAM PERU/CASTOR OIL 60 GM TUBE TOP SCH ×2 (08:54→20:12)
[2019-03-17] MEDS: NAPROXEN 250 MG TAB PO SCH ×2 (08:54→20:09)
[2019-03-17] MEDS: ENOXAPARIN 40 MG/0.4 ML SYG SC SCH (08:55)
[2019-03-17 14:00] VITALS: BP 115/55; PULSE 84; RESP 18
--- NOTE | 2019-03-17 14:31 | PN ---
Date/Time of Note Date/Time of Note DATE: 03/17/19 TIME: 14:30 Assessment/Plan VTE Prophylaxis Risk score (from Ns)>0 risk: 5 SCD applied (from [facility] [place]): No SCD contraindicated: other Pharmacological prophylaxis: LMWH Lines/Catheters IV Catheter Type (from [facility]): Peripheral IV Urinary Cath still in place: No Assessment/Plan Hospital Course SUBJECTIVE: No acute episodes. OBJECTIVE: Vital signs-see below PHYSICAL EXAM: Constitutional: Adequately built,not in acute distress. HEENT: Head atraumatic and normocephalic. Eyes: Extraocular muscles intact. Anicteric sclerae. Pupils equal bilaterally, reactive to light. NECK: Supple without lymph node. CHEST: Clear and good breath sounds equally. No wheezing. No rhonchi. HEART: S1, S2. Regular rate and rhythm. ABDOMEN: Soft/non tender with no rebound tenderness. Bowel sounds were present. EXTREMITIES: No cyanosis, clubbing or edema. NEUROLOGIC: Alert and oriented x3. No focal deficit. No sensory deficit. PSYCHOSOCIAL: No signs of depression. INTEGUMENTARY: No open wounds. ASSESSMENT AND PLAN:49 yo M w/C spine fracture,s/p surgery admitted w/R leg cellulitis and numbness.. Right lower extremity cellulitis -stable, continue wound care UTI,recurrent -Patient recently completed a course of antimicrobial and repeat culture shows Pseudomonas in the setting of dysuria. Cont p.o. Cipro.w/stop date on it. 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 Hepatitis C -Outpt f/u recommended Debility -SNF DVT GI prophylaxis: Lovenox Disposition:Pending SNF Patient was seen in collaboration with Dr. Baird Result Diagram: 03/16/1943003/16/19430 Exam/Review of Systems Exam Vitals Vital Signs Date Temp Pulse Resp B/P (MAP) Pulse Ox O2 O2 Flow FiO2 Time Delivery Rate 03/17/19 98.0 80 18 110/55 95 08:00 (73) 03/17/19 Room Air 01:35 Intake and Output 03/16/19 03/16/19 03/17/19 1515:00 23:00 07:00 IntakeIntake Total 350 ml 240 ml 240 ml OutputOutput Total 800 ml 1000 ml BalanceBalance -450 ml 240 ml -760 ml Medications Medication Current Medications IV Flush (NS 3 ml) 3 ml PER PROTOCOL IV Last administered on 02/24/19 16:48; Admin Dose 3 ML; Start 02/10/19 at 23:00 Ondansetron HCl (Zofran Inj) 4 mg Q6H PRN IV NAUSEA/VOMITING Last administered on 02/23/19 00:54; Admin Dose 4 MG; Start 02/10/19 at 23:00 Acetaminophen (Tylenol Tab) 650 mg Q6H PRN PO .PAIN 1-3 OR TEMP Last administered on 03/03/19 17:13; Admin Dose 650 MG; Start 02/10/19 at 23:00 Docusate Sodium (Colace) 100 mg Q12H PRN PO .CONSTIPATION Last administered on 03/01/19 22:52; Admin Dose 100 MG; Start 02/10/19 at 23:00 Bisacodyl (Dulcolax) 5 mg DAILY PRN PO .CONSTIPATION Last administered on 03/05/19 21:43; Admin Dose 5 MG; Start 02/10/19 at 23:00 Enoxaparin Sodium (Lovenox) 40 mg DAILY SC Last administered on 03/17/19 08:55; Admin Dose 40 MG; Start 02/11/19 at 09:00 Morphine Sulfate (Ms Contin (Er)) 30 mg BID PO Last administered on 03/17/19 08:54; Admin Dose 30 MG; Start 02/10/19 at 23:30 Miscellaneous Information (Pending [facility] Order For Wound Care) This patient oliveros... PRN PRN XX WOUND CARE; Start 02/11/19 at 05:00 Baclofen (Lioresal) 40 mg BID PO Last administered on 03/17/19 08:53; Admin Dose 40 MG; Start 02/11/19 at 21:00 Levothyroxine Sodium (Synthroid) 100 mcg DAILY@06 PO Last administered on 03/17/19 06:00; Admin Dose 100 MCG; Start 02/12/19 at 14:00 Polyethylene Glycol (Miralax) 17 gm DAILY PO Last administered on 03/17/19 08:53; Admin Dose 17 GM; Start 02/13/19 at 12:00 Bisacodyl (Dulcolax Supp) 10 mg DAILY PRN [place] CONSTIPATION Last administered on 02/19/19 00:01; Admin Dose 10 MG; Start 02/19/19 at 00:00 Sodium Biphosphate/ Sodium Phosphate (Fleet Enema) 133 ml DAILY PRN [place] CONSTIPATION; Start 02/19/19 at 15:00 Naproxen (Naprosyn) 250 mg BID PO Last administered on 03/17/19 08:54; Admin Dose 250 MG; Start 02/26/19 at 10:30 Pantoprazole (Protonix Tab) 40 mg DAILY@06 PO Last administered on 03/17/19 06:00; Admin Dose 40 MG; Start 02/27/19 at 06:00 Alprazolam (Xanax) 0.25 mg HS PRN PO ANXIETY Last administered on 03/16/19 00:28; Admin Dose 0.25 MG; Start 02/26/19 at 16:00 Acetaminophen/ Hydrocodone Bitart ([place] (5/325)) 1 tab Q6H PRN PO MODERATE PAIN LEVEL 4-6 Last administered on 03/17/19 02:26; Admin Dose 1 TAB; Start 03/02/19 at 13:00 Benzocaine (Orajel) 1 applic TID PRN MM PAIN; Start 03/08/19 at 08:00 Morphine Sulfate (morphine) 2 mg Q4H PRN IV BREAKTHROUGH PAIN Last administered on 03/17/19 10:27; Admin Dose 2 MG; Start 03/10/19 at 22:30 Miscellaneous Information 1 ea NOTE XX ; Start 03/13/19 at 09:30 Gabapentin (Neurontin) 800 mg QID PO Last administered on 03/17/19 13:15; Admin Dose 800 MG; Start 03/15/19 at 13:00 Nortriptyline HCl (Aventyl) 50 mg HS PO Last administered on 03/16/19 20:51; Admin Dose 50 MG; Start 03/15/19 at 21:00 BIA BRAUN NP Mar 17, 2019 14:31
[2019-03-17 20:05] VITALS: BP 121/85; PULSE 85; RESP 18
[2019-03-17] MEDS: NORTRIPTYLINE 25 MG CAP PO SCH (20:09)
[2019-03-18] MEDS: ALPRAZOLAM 0.25 MG TAB PO PRN ×2 (00:14→23:38)
[2019-03-18] MEDS: PANTOPRAZOLE (EC) 40 MG TAB PO SCH (06:03)
[2019-03-18] MEDS: LEVOTHYROXINE 100 MCG TAB PO SCH (06:03)
[2019-03-18 07:24] VITALS: BP 110/54; PULSE 76; RESP 18
[2019-03-18] MEDS: POLYETHYLENE GLYCOL 17 GM PACKET PO SCH (09:11)
[2019-03-18] MEDS: GABAPENTIN 400 MG CAP PO SCH ×4 (09:12→20:57)
[2019-03-18] MEDS: NAPROXEN 250 MG TAB PO SCH ×2 (09:12→20:57)
[2019-03-18] MEDS: BACLOFEN 10 MG TAB PO SCH ×2 (09:12→20:57)
[2019-03-18] MEDS: morphine (ER) 30 MG TAB PO SCH ×2 (09:12→20:57)
[2019-03-18] MEDS: ENOXAPARIN 40 MG/0.4 ML SYG SC SCH (09:13)
[2019-03-18] MEDS: BALSAM PERU/CASTOR OIL 60 GM TUBE TOP SCH ×2 (09:18→20:59)
[2019-03-18] MEDS: morphine 2 MG INJ IV PRN (10:35)
--- NOTE | 2019-03-18 12:33 | PN ---
Date/Time of Note Date/Time of Note DATE: 03/18/19 TIME: 12:33 Assessment/Plan VTE Prophylaxis Risk score (from Ns)>0 risk: 5 [place] [facility] [place] SCD contraindicated: other Pharmacological prophylaxis: LMWH Lines/Catheters IV Catheter Type (from [facility]): Saline Lock Urinary Cath still in place: No Assessment/Plan Hospital Course SUBJECTIVE: No acute episodes. OBJECTIVE: Vital signs-see below PHYSICAL EXAM: Constitutional: Adequately built,not in acute distress. HEENT: Head atraumatic and normocephalic. Eyes: Extraocular muscles intact. Anicteric sclerae. Pupils equal bilaterally, reactive to light. NECK: Supple without lymph node. CHEST: Clear and good breath sounds equally. No wheezing. No rhonchi. HEART: S1, S2. Regular rate and rhythm. ABDOMEN: Soft/non tender with no rebound tenderness. Bowel sounds were present. EXTREMITIES: No cyanosis, clubbing or edema. NEUROLOGIC: Alert and oriented x3. No focal deficit. No sensory deficit. PSYCHOSOCIAL: No signs of depression. INTEGUMENTARY: No open wounds. ASSESSMENT AND PLAN:49 yo M w/C spine fracture,s/p surgery admitted w/R leg cellulitis and numbness.. 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 Hepatitis C -Outpt f/u recommended Debility -SNF DVT GI prophylaxis: Lovenox Disposition: DC TO SNF TODAY Patient was seen in collaboration with Dr. Baird Result Diagram: 03/16/1943003/16/19430 Exam/Review of Systems Exam Vitals Vital Signs Date Temp Pulse Resp B/P (MAP) Pulse Ox O2 O2 Flow FiO2 Time Delivery Rate 03/18/19 97.5 76 18 110/54 94 07:24 (72) 03/17/19 Room Air 01:35 Intake and Output 03/17/19 03/17/19 03/18/19 1515:00 23:00 07:00 IntakeIntake Total 680 ml 200 ml 240 ml OutputOutput Total 1000 ml 1000 ml BalanceBalance 680 ml -800 ml -760 ml Medications Medication Current Medications IV Flush (NS 3 ml) 3 ml PER PROTOCOL IV Last administered on 02/24/19 16:48; Admin Dose 3 ML; Start 02/10/19 at 23:00 Ondansetron HCl (Zofran Inj) 4 mg Q6H PRN IV NAUSEA/VOMITING Last administered on 02/23/19 00:54; Admin Dose 4 MG; Start 02/10/19 at 23:00 Acetaminophen (Tylenol Tab) 650 mg Q6H PRN PO .PAIN 1-3 OR TEMP Last administered on 03/03/19 17:13; Admin Dose 650 MG; Start 02/10/19 at 23:00 Docusate Sodium (Colace) 100 mg Q12H PRN PO .CONSTIPATION Last administered on 03/01/19 22:52; Admin Dose 100 MG; Start 02/10/19 at 23:00 Bisacodyl (Dulcolax) 5 mg DAILY PRN PO .CONSTIPATION Last administered on 03/05/19 21:43; Admin Dose 5 MG; Start 02/10/19 at 23:00 Enoxaparin Sodium (Lovenox) 40 mg DAILY SC Last administered on 03/18/19 09:13; Admin Dose 40 MG; Start 02/11/19 at 09:00 Morphine Sulfate (Ms Contin (Er)) 30 mg BID PO Last administered on 03/18/19 09:12; Admin Dose 30 MG; Start 02/10/19 at 23:30 Miscellaneous Information (Pending Santyl Order For Wound Care) This patient oliveros... PRN PRN XX WOUND CARE; Start 02/11/19 at 05:00 Baclofen (Lioresal) 40 mg BID PO Last administered on 03/18/19 09:12; Admin Dose 40 MG; Start 02/11/19 at 21:00 Levothyroxine Sodium (Synthroid) 100 mcg DAILY@06 PO Last administered on 03/18/19 06:03; Admin Dose 100 MCG; Start 02/12/19 at 14:00 Polyethylene Glycol (Miralax) 17 gm DAILY PO Last administered on 03/18/19 09:11; Admin Dose 17 GM; Start 02/13/19 at 12:00 Bisacodyl (Dulcolax Supp) 10 mg DAILY PRN LA CONSTIPATION Last administered on 02/19/19at 00:01; Admin Dose 10 MG; Start 02/19/19 at 00:00 Sodium Biphosphate/ Sodium Phosphate (Fleet Enema) 133 ml DAILY PRN LA CONSTIPATION; Start 02/19/19 at 15:00 Naproxen (Naprosyn) 250 mg BID PO Last administered on 03/18/19 09:12; Admin Dose 250 MG; Start 02/26/19 at 10:30 Pantoprazole (Protonix Tab) 40 mg DAILY@06 PO Last administered on 03/18/19 06:03; Admin Dose 40 MG; Start 02/27/19 at 06:00 Alprazolam (Xanax) 0.25 mg HS PRN PO ANXIETY Last administered on 03/18/19 00:14; Admin Dose 0.25 MG; Start 02/26/19 at 16:00 Acetaminophen/ Hydrocodone Bitart ([place] (5/325)) 1 tab Q6H PRN PO MODERATE PAIN LEVEL 4-6 Last administered on 03/17/19 23:40; Admin Dose 1 TAB; Start 03/02/19 at 13:00 Benzocaine (Orajel) 1 applic TID PRN MM PAIN; Start 03/08/19 at 08:00 Morphine Sulfate (morphine) 2 mg Q4H PRN IV BREAKTHROUGH PAIN Last administered on 03/18/19at 10:35; Admin Dose 2 MG; Start 03/10/19 at 22:30 Miscellaneous Information 1 ea NOTE XX ; Start 03/13/19 at 09:30 Gabapentin (Neurontin) 800 mg QID PO Last administered on 03/18/19 09:12; Admin Dose 800 MG; Start 03/15/19 at 13:00 Nortriptyline HCl (Aventyl) 50 mg HS PO Last administered on 03/17/19 20:09; Admin Dose 50 MG; Start 03/15/19 at 21:00 BIA BRAUN NP Mar 18, 2019 12:33
--- NOTE | 2019-03-18 14:20 | DS ---
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 No evidence of a deep vein thrombosis involving either lower extremity. Hospital Course 49 yo M w/C spine fracture, status post surgical intervention with hardware placed,paraplegia complicated with neurological pain with numbness/muscle spasm who is also wheelchair-bound with dependent in ADLs, homeless [facility], pressure ulcers, moderate aortic stenosis, history of illicit drug use, hypothyroidism, hepatitis C, was admitted with right leg cellulitis.. Patient's hospitalization was also noted for GNR/ESBL urinary tract infection which was treated with full course of antimicrobials. Patient was continued on wound care for underlying right lower extremity cellulitis with improved cellulitis with no further complications noted. There was no evidence of DVT. In terms of his chronic pain syndrome, patient was continued on combination opiates with tricyclic antidepressant. Patient's pain was controlled throughout the hospitalization. He was also noted with some opiate seeking behaviors. Patient was continued on thyroid replacement therapy for underlying hypothyroidism. For the most part, patient's hospitalization was uneventful in terms of medical conditions. However, patient was a difficult discharge as he had filed a grievance in many other places and those facilities were unwilling to take him back. Patient also did not want to go back to the [facility] and requested half-way which was authorized with his insurance and through the work of hospital administrative staff and case management. At this time, patient is medically stable for discharge to a retirement facility for short-term rehabilitation. Approximately 60-minute was spent on coordinating the discharge on this patient. Patient was seen in collaboration with Dr. Eastman. Home Meds Active Scripts Levothyroxine Sodium* (Levothyroxine Sodium*) 100 Mcg Tablet, 100 MCG PO DAILY@06, #30 TAB Prov:BIA BRAUN NP 03/07/19 Pantoprazole* (Pantoprazole*) 40 Mg Tablet.dr, 40 MG PO DAILY@06, #30 TAB Prov:BRAUNBIA V. MANAGER FRONT OFFICE 03/07/19 Bisacodyl* (Bisacodyl*) 5 Mg Tablet.dr, 5 MG PO DAILY PRN for .CONSTIPATION, #30 TAB Prov:BRAUNALONZOA V. MANAGER FRONT OFFICE 03/07/19 Nortriptyline Hcl* (Nortriptyline Hcl*) 25 Mg Capsule, 25 MG PO HS, #30 CAP Prov:BRAUN,BIA V. MANAGER FRONT OFFICE 03/07/19 Hydrocodone Bit-Acetaminophen (Hydrocodone Bit-APAP) 5-325MG Tablet, 1 TAB PO Q6H PRN for MODERATE PAIN LEVEL 4-6, #30 TAB Prov:BRAUNALONZOA V. MANAGER FRONT OFFICE 03/07/19 Morphine Sulfate (Morphine Sulfate ER) 30 Mg Tablet.er, 30 MG PO BID, #60 TAB Prov:BRAUNBIA SOLOMON V. MANAGER FRONT OFFICE 03/07/19 Gabapentin* (Gabapentin*) 400 Mg Capsule, 800 MG PO TID, #100 CAP Prov:BRAUNALONZOA V. MANAGER FRONT OFFICE 03/07/19 Alprazolam* (Alprazolam*) 0.25 Mg Tablet, 0.25 MG PO HS PRN for ANXIETY, #30 TAB Prov:BRAUNALONZOA V. MANAGER FRONT OFFICE 03/07/19 Baclofen* (Baclofen*) 10 Mg Tablet, 40 MG PO BID, #100 TAB Prov:BRAUNALONZOA V. MANAGER FRONT OFFICE 03/07/19 Ciprofloxacin Hcl* (Ciprofloxacin Hcl*) 500 Mg Tablet, 500 MG PO BID@, #10 TAB Prov:BRAUNBAI V. MANAGER FRONT OFFICE 03/07/19 Follow-up Plan 1.YOU HAVE RECEIVED A MEDICAL TREATMENT AT [facility] AND YOUR CONDITION IS STABLE AND CAN BE FOLLOWED UP OUTPATIENT. FURTHER FOLLOW-UPS CAN WAIT UNTIL YOU ARE SEEN IN YOUR DOCTORS OFFICE WITHIN THE NEXT 1-2 DAYS. IT IS YOUR RESPONSIBILITY TO MAKE AN APPOINTMENT FOR FOLOW-UP CARE. IF YOU HAVE A PRIMARY DOCTOR --you should call your primary doctor in 1-2 days and schedule an appointment IF YOU DO NOT HAVE A PRIMARY DOCTOR YOU CAN CALL OUR PHYSICIAN REFERRAL HOTLINE AT IF YOU CAN NOT AFFORD TO SEE A PHYSICIAN YOU CAN CHOSE FROM THE FOLLOWING [facility] CLINICS [facility] [address] [facility] [phone] [facility]. [facility] [address] [facility] [address] [facility]. [facility] [phone] [facility]. [facility]. [address]. Call 911 or go to the nearest emergency room if experiencing loss of consciousness, dizziness, chest pain, shortness of breath, vomiting/abdominal pain, speech difficulties, motor weakness or any unusual symptoms. Primary Care Provider Care Physician No Primary BIA BRAUN NP Mar 18, 2019 14:20
[2019-03-18 14:24] VITALS: BP 127/58; PULSE 87; RESP 18
[2019-03-18] MEDS: HYDROCODONE/APAP (5/325) TAB PO PRN ×2 (16:01→21:32)
[2019-03-18 19:51] VITALS: BP 127/59; PULSE 90; RESP 17
[2019-03-18] MEDS: NORTRIPTYLINE 25 MG CAP PO SCH (20:58)
[2019-03-19] VITALS: BP 131/79; PULSE 89; RESP 19
[2019-03-19 02:10] VITALS: BP 129/68; PULSE 79; RESP 17
[2019-03-19] MEDS: PANTOPRAZOLE (EC) 40 MG TAB PO SCH (06:36)
[2019-03-19] MEDS: LEVOTHYROXINE 100 MCG TAB PO SCH (06:36)
[2019-03-19] MEDS: HYDROCODONE/APAP (5/325) TAB PO PRN ×2 (07:06→14:23)
[2019-03-19 07:23] VITALS: BP 106/54; PULSE 83; RESP 18
[2019-03-19] MEDS: BACLOFEN 10 MG TAB PO SCH (08:43)
[2019-03-19] MEDS: POLYETHYLENE GLYCOL 17 GM PACKET PO SCH (08:44)
[2019-03-19] MEDS: GABAPENTIN 400 MG CAP PO SCH ×2 (08:44→12:21)
[2019-03-19] MEDS: morphine (ER) 30 MG TAB PO SCH (08:44)
[2019-03-19] MEDS: NAPROXEN 250 MG TAB PO SCH (08:44)
[2019-03-19] MEDS: ENOXAPARIN 40 MG/0.4 ML SYG SC SCH (08:50)
[2019-03-19] MEDS: BALSAM PERU/CASTOR OIL 60 GM TUBE TOP SCH (08:53)
--- NOTE | 2019-03-19 14:56 | DS ---
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 No evidence of a deep vein thrombosis involving either lower extremity. Hospital Course 49 yo M w/C spine fracture, status post surgical intervention with hardware placed,paraplegia complicated with neurological pain with numbness/muscle spasm who is also wheelchair-bound with dependent in ADLs, homeless living at a rec[facility] place, pressure ulcers, moderate aortic stenosis, history of illicit drug use, hypothyroidism, hepatitis C, was admitted with right leg cellulitis.. Patient's hospitalization was also noted for GNR/ESBL urinary tract infection which was treated with full course of antimicrobials. Patient was continued on wound care for underlying right lower extremity cellulitis with improved cellulitis with no further complications noted. There was no evidence of DVT. In terms of his chronic pain syndrome, patient was continued on combination opiates with tricyclic antidepressant. Patient's pain was controlled throughout the hospitalization. He was also noted with some opiate seeking behaviors. Patient was continued on thyroid replacement therapy for underlying hypothyroidism. For the most part, patient's hospitalization was uneventful in terms of medical conditions. However, patient was a difficult discharge as he had filed a grievance in many other places and those facilities were unwilling to take him back. Patient also did not want to go back to the [facility] and requested skilled nursing which was authorized with his insurance and through the work of hospital administrative staff and case management. On day of discharge, patient was also hesitant to go to to SNF and complained about the place and stated there are drug seller in that area and feels unsafe.. fabric worker foreman, CM executives and hospital risk management team had reviewed case and disposition plan in detail and deemed safe discharge. Patient then agree to go to SNF w/ambulance.. Approximately 60-minute was spent on coordinating the discharge on this patient. Patient was seen in collaboration with Dr. Eastman. Home Meds Active Scripts Levothyroxine Sodium* (Levothyroxine Sodium*) 100 Mcg Tablet, 100 MCG PO DAILY@06, #30 TAB Prov:BIA BRAUN V. DIE REPAIR MACHINIST 03/07/19 Pantoprazole* (Pantoprazole*) 40 Mg Tablet., 40 MG PO DAILY@06, #30 TAB Prov:BIA BRAUN V. DIE REPAIR MACHINIST 03/07/19 Bisacodyl* (Bisacodyl*) 5 Mg Tablet., 5 MG PO DAILY PRN for .CONSTIPATION, #30 TAB Prov:BIA BRAUN V. DIE REPAIR MACHINIST 03/07/19 Nortriptyline Hcl* (Nortriptyline Hcl*) 25 Mg Capsule, 25 MG PO HS, #30 CAP Prov:BIA BRAUN V. DIE REPAIR MACHINIST 03/07/19 Hydrocodone Bit-Acetaminophen (Hydrocodone Bit-APAP) 5-325MG Tablet, 1 TAB PO Q6H PRN for MODERATE PAIN LEVEL 4-6, #30 TAB Prov:BIA BRAUN V. DIE REPAIR MACHINIST 03/07/19 Morphine Sulfate (Morphine Sulfate ER) 30 Mg Tablet.er, 30 MG PO BID, #60 TAB Prov:BIA BRAUN V. DIE REPAIR MACHINIST 03/07/19 Gabapentin* (Gabapentin*) 400 Mg Capsule, 800 MG PO TID, #100 CAP Prov:BIA BRAUN V. DIE REPAIR MACHINIST 03/07/19 Alprazolam* (Alprazolam*) 0.25 Mg Tablet, 0.25 MG PO HS PRN for ANXIETY, #30 TAB Prov:BIA BRAUN V. DIE REPAIR MACHINIST 03/07/19 Baclofen* (Baclofen*) 10 Mg Tablet, 40 MG PO BID, #100 TAB Prov:BIA BRAUN V. DIE REPAIR MACHINIST 03/07/19 Ciprofloxacin Hcl* (Ciprofloxacin Hcl*) 500 Mg Tablet, 500 MG PO BID@18, #10 TAB Prov:BIA BRAUN V. DIE REPAIR MACHINIST 03/07/19 Follow-up Plan 1.YOU HAVE RECEIVED A MEDICAL TREATMENT AT [facility] AND YOUR CONDITION IS STABLE AND CAN BE FOLLOWED UP OUTPATIENT. FURTHER FOLLOW-UPS CAN WAIT UNTIL YOU ARE SEEN IN YOUR DOCTORS OFFICE WITHIN THE NEXT 1-2 DAYS. IT IS YOUR RESPONSIBILITY TO MAKE AN APPOINTMENT FOR FOLOW-UP CARE. IF YOU HAVE A PRIMARY DOCTOR --you should call your primary doctor in 1-2 days and schedule an appointment IF YOU DO NOT HAVE A PRIMARY DOCTOR YOU CAN CALL OUR PHYSICIAN REFERRAL HOTLINE AT IF YOU CAN NOT AFFORD TO SEE A PHYSICIAN YOU CAN CHOSE FROM THE FOLLOWING [facility] CLINICS [facility] [address] [facility] [address] [facility] [facility] [address] [facility] [address] [facility] [address] [facility]. [facility]. [address]. Call 911 or go to the nearest emergency room if experiencing loss of consciousness, dizziness, chest pain, shortness of breath, vomiting/abdominal pain, speech difficulties, motor weakness or any unusual symptoms. Primary Care Provider Care Physician No Primary BIA BRAUN NP Mar 19, 2019 14:55
[2019-03-19 14:58] VITALS: BP 125/60; PULSE 96; RESP 18
== END 2019-03-19 16:15 | DRG 602 ==
LOC: E/R 20:26 → PP2 22:59 → UNDOADMOB 22:59 → INTOOBSV 23:43 → PP2 23:43 → OBSVTOIN 23:43 → 5EC 02-15 21:40 → MS3 03-03 10:31
PROVIDERS: ADMIT Family Medicine; ATTEND Internal Medicine
DX: L03.115 Cellulitis of right lower limb (principal); L89.223 Pressure ulcer of left hip, stage 3; L89.213 Pressure ulcer of right hip, stage 3; G82.20 Paraplegia, unspecified; N39.0 Urinary tract infection, site not specified; L89.151 Pressure ulcer of sacral region, stage 1; B19.20 Unspecified viral hepatitis C without hepatic coma; E03.9 Hypothyroidism, unspecified; F17.200 Nicotine dependence, unspecified, uncomplicated; G62.9 Polyneuropathy, unspecified; G89.4 Chronic pain syndrome; I35.2 Nonrheumatic aortic (valve) stenosis with insufficiency; K59.00 Constipation, unspecified; M62.831 Muscle spasm of calf; N31.9 Neuromuscular dysfunction of bladder, unspecified; R53.81 Other malaise; R20.0 Anesthesia of skin; B96.1 Klebsiella pneumoniae [K. pneumoniae] as the cause of diseases classified elsewhere; B96.4 Proteus (mirabilis) (morganii) as the cause of diseases classified elsewhere; Z16.12 Extended spectrum beta lactamase (ESBL) resistance; S12.400S Unspecified displaced fracture of fifth cervical vertebra, sequela; S12.500S Unspecified displaced fracture of sixth cervical vertebra, sequela; S12.600S Unspecified displaced fracture of seventh cervical vertebra, sequela; S14.109S Unspecified injury at unspecified level of cervical spinal cord, sequela; V49.9XXS Car occupant (driver) (passenger) injured in unspecified traffic accident, sequela; Z22.322 Carrier or suspected carrier of Methicillin resistant Staphylococcus aureus; Z99.3 Dependence on wheelchair; Z59.0 Homelessness
CPT/HCPCS: 71045; 72125; 73030; 73590; 74176; 76870; 80048; 80053; 80061; 80202; 80307; 81003; 82150; 82565; 83036; 83605; 83690; 83735; 84439; 84443; 84484; 84520; 85025; 85610; 85730; 86592; 86803; 87081; 87086; 87340; 93005; 93306; 93970; 96374; 96375; 97110; 97163; 97530; 97542; J1071; J1170; J1650; J2060; J2185; J2270; J2405; J2543; J3370; J7030; J7040; J7120; L1970; L2210; L2270; L2275; L2820